=== PATIENT | female | born 1990 | race Caucasian/White ===

== ENCOUNTER 2023-05-29 16:24 | Emergency (ER) | payer OTHER, SELFPAY ==
[2023-05-29 16:43] VITALS: BP 132/58; PULSE 94; RESP 18; TEMP 36.4; O2SAT 100
--- NOTE | 2023-05-29 16:56 | ED.DENTAL ---
HPI - Dental/Oral General Chief complaint: Dental/Oral Stated complaint: Infected Tooth Time Seen by Provider: 05/29/23 16:59 Mode of arrival: ambulatory Limitations: no limitations History of Present Illness HPI Narrative: 32-year-old female presents with concern for left lower dental pain for many months. She reports she has a hole in the tooth. Reports pain has gotten worse recently. She has been taking ibuprofen. She denies fever. Reports pain is spreading up towards her ear. Complaint: tooth pain Related Data Allergies Allergy/AdvReac Type Severity Reaction Status Date / Time adhesive tape Allergy Rash Verified 05/29/23 16:47 Review of Systems Review of Systems: CONSTITUTIONAL: Denies malaise, chills, sweats, or fever. EYES: Denies visual changes ENT: Denies rhinorrhea, congestion, sinus pain, otalgia or sore throat. Reports left lower dental pain that radiates toward the ear CARDIOVASCULAR: Denies chest pain, palpitations RESPIRATORY: Denies cough or dyspnea. SKIN: Denies rash or itching. MUSCULOSKELETAL: Denies myalgia. NEUROLOGIC: Denies numbness, weakness, or headache. All systems reviewed & are unremarkable except as noted in HPI and below PMFSH Comments At time of signature, agree with nursing past medical, surgical, social and family history. There is no relevant family history pertinent to the presenting complaint Exam Narrative: GENERAL: Well-appearing, well-nourished, and in no acute distress. HEAD: Normocephalic EYES: PERRLA, conjunctivae clear ENT: Nares clear. Mucous membranes moist. Oropharynx not erythematous without lesions. Tonsils not enlarged and without exudate, no drooling, no hoarseness, no trismus, uvula midline. Caries noted, no missing teeth or broken teeth, no jaw swelling noted NECK: Supple. No lymphadenopathy CHEST: Clear to auscultation, breath sounds equal. No wheezing, rhonchi, rales, or stridor. No respiratory distress, speaks in full sentences. HEART: Regular rate and rhythm. No murmur heard. SKIN: Warm, dry, no rash. NEURO: Alert and oriented x3. PSYCH: Normal mood and affect Course Course Emergency Course: Patient is aware of diagnosis, understands and agrees to treatment plan. Anticipatory guidance given. Patient agrees to follow-up as directed and is aware of reasons to seek care at the emergency department. Portions of this record may have been created with voice recognition software Level of Care: Express Care Visit Vital Signs Vital signs: Vital Signs Temperature 97.6 F 05/29/23 16:43 Pulse Rate 94 05/29/23 16:43 Respiratory Rate 18 05/29/23 16:43 Blood Pressure 132/58 L 05/29/23 16:43 Pulse Oximetry 100 05/29/23 16:43 Oxygen Delivery Room Air 05/29/23 16:43 Temperature 97.6 F 05/29/23 16:43 Pulse Rate 94 05/29/23 16:43 Respiratory Rate 18 05/29/23 16:43 Blood Pressure 132/58 L 05/29/23 16:43 Pulse Oximetry 100 05/29/23 16:43 Oxygen Delivery Room Air 05/29/23 16:43 Reviewed. MDM - Dental/Oral MDM Narrative Medical decision making narrative: Patients pain and complaint coupled with physical findings are consistant with dentalgia. There are no focal signs of space occupying lesions that are compromising to the airway; no dysphagia, odynophagia, dysphonia, or dyspnea. No uvular deviation or soft palate edema. Patient is non-toxic appearing. The floor of the mouth is soft with no signs of David's Angina; no induration below mandible, no neck pain. Patient is without trismus or drooling and able to swallow secretions. Patient is felt appropriate for discharge home with dental follow up. Differential Diagnosis Differential diagnosis: Likely gingival abscess, dental caries, toothache, dental abscess, fracture of tooth and aphthous ulcer Critical Care Time Critical Care Time Critical Care Time: No Discharge Plan Discharge Clinical Impression: Toothache Patient Disposition: Home, Self-Care
== END 2023-05-29 17:07 | disposition home or self-care (01) ==
PROVIDERS: Emergency Provider Nurse Practitioner
DX: K08.89 Other specified disorders of teeth and supporting structures (principal); I10 Essential (primary) hypertension
CPT/HCPCS: 99203; G0463

== ENCOUNTER 2024-01-29 14:00 | Emergency (ER) | payer OTHER, SELFPAY ==
[2024-01-29 14:41] VITALS: BP 151/99; PULSE 109; RESP 16; TEMP 36.5; O2SAT 99
--- NOTE | 2024-01-29 15:20 | ED.URI ---
HPI - URI/Sore Throat General Chief Complaint: Upper Respiratory Infection Stated Complaint: bodyaches/sore throat Time Seen by Provider: 01/29/24 15:20 History of Present Illness HPI Narrative: 33-year-old female presented for complaint of nasal congestion, sore throat, fatigue and hoarse voice. Onset 4 days. Endorses subjective fever and chills and diarrhea. Denies shortness of breath, wheezing nausea vomiting or lethargy. Taking cold meds and cough drops. Related Data Home Medications ?Medication ?Instructions ?Recorded ?Confirmed ?Last Taken ?Type buspirone 5 mg tablet mg 01/29/24 Unknown History hydroxyzine HCl 25 mg tablet mg 01/29/24 Unknown History oxcarbazepine 300 mg tablet mg 01/29/24 Unknown History Allergies Allergy/AdvReac Type Severity Reaction Status Date / Time adhesive tape AdvReac Mild Rash Verified 01/29/24 15:16 Review of Systems Review of Systems: ROS per HPI [facility] Past Medical History Medical History (Updated 01/29/24 @ 15:31 by Margi Pedro, GENETIC COORDINATOR) Anxiety Exam Narrative: GENERAL: mildly Ill-appearing, no acute distress. EYES: conjunctivae clear ENT: Mucous membranes moist. TM pearly alva with normal light reflex bilaterally; no tragal tenderness. Hoarse voice. Oropharynx not erythematous without lesions. Tonsils not enlarged and without exudate. No drooling, no trismus, uvula midline. No tripod positioning, hot potato voice, or soft palate swelling. NECK: Supple. No lymphadenopathy CHEST: Clear to auscultation, breath sounds equal. No respiratory distress, speaks in full sentences. HEART: Regular rate and rhythm. No murmur heard. SKIN: Warm, dry, no rash. NEURO: Alert and oriented x3. Course Course Emergency Course: Patient is aware of diagnosis, understands and agrees to treatment plan. Anticipatory guidance given. Patient agrees to follow-up as directed and is aware of reasons to seek care at the emergency department. Portions of this record may have been created with voice recognition software Level of Care: Express Care Visit Vital Signs Vital signs: Vital Signs Temperature 97.7 F 01/29/24 14:41 Pulse Rate 109 H 01/29/24 14:41 Respiratory Rate 16 01/29/24 14:41 Blood Pressure 151/99 H 12/23/24 14:41 Pulse Oximetry 99 12/23/24 14:41 Oxygen Delivery Room Air 01/29/24 14:41 Temperature 97.7 F 01/29/24 14:41 Pulse Rate 109 H 01/29/24 14:41 Respiratory Rate 16 01/29/24 14:41 Blood Pressure 151/99 H 01/29/24 14:41 Pulse Oximetry 99 01/29/24 14:41 Oxygen Delivery Room Air 01/29/24 14:41 MDM - URI/Sore Throat MDM Narrative Medical decision making narrative: Negative flu, COVID, and strep result reviewed with pt. Rx steroid. Advise supportive treatments and s/s to go to the ER. Patient is appropriate for outpatient treatment and follow-up. Differential Diagnosis Differential diagnosis: Likely upper respiratory infection, viral infection and pharyngitis Discharge Plan Discharge Clinical Impression: Upper respiratory infection Patient Disposition: Home, Self-Care Condition: Stable Instructions: Antibiotic Form, Upper Respiratory Infection (ED) Additional Instructions: Flu and COVID negative. Rapid strep swab was negative today You will be notified in a few days if the culture comes back positive for strep, and appropriate antibiotics will be called in at that time. if symptoms are due to a viral illness, it is not treated with antibiotics. Viral symptoms can be present for up to 10-14 days. Recommendations; Flonase spray and Zyrtec for sinus congestion Cough syrup may cause drowsiness; avoid driving or take it at night time. Tylenol every 8 hours as needed for pain/fever Soft foods, cool liquids, warm tea. Gargle with warm saltwater twice a day. Chloraseptic spray and throat lozenges. Rest and stay hydrated. --Follow up with your PCP --Go to the ER immediately if you cannot swallow your saliva, trouble breathing/wheezing, throat swelling, pain is persistent and severe Patient Language: Macedonian Prescriptions: New methylprednisolone [Medrol (Félix)] 4 mg tablets,dose pack See Rx Instructions .ROUTE .COMPLEX Qty: 21 0RF Rx Instructions: orally per package directions No Action buspirone 5 mg tablet oxcarbazepine 300 mg tablet hydroxyzine HCl 25 mg tablet Follow-up/Referrals: PHYSICIAN,SUPERVISOR SAWING AND ASSEMBLY [Primary Care Provider] - Stand Alone Forms: Work/School Release IP Time of Disposition: 15:29
[2024-01-29 15:25] LABS: EDCOVIDSCREEN Negative (Negative); EDINFLUASCREEN Negative (Negative); EDINFLUBSCREEN Negative (Negative); EDSTREPNEGPOS1 Negative (Negative)
== END 2024-01-29 15:30 | disposition home or self-care (01) ==
PROVIDERS: Emergency Provider Nurse Practitioner Family
DX: J06.9 Acute upper respiratory infection, unspecified (principal); Z79.899 Other long term (current) drug therapy; Z20.822 Contact with and (suspected) exposure to COVID-19
CPT/HCPCS: 87081; 87426; 87804; 87880; 99213; G0463

== ENCOUNTER 2024-07-22 13:26 | Emergency (ER) | payer OTHER, SELFPAY ==
--- NOTE | 2024-07-22 13:35 | ED.SKABFB ---
HPI - Skin/Abscess/Foreign Bdy General Chief complaint: Skin/Abscess/Foreign Body Stated complaint: Rash Time Seen by Provider: 07/22/24 13:40 Source: patient and RN notes reviewed Mode of arrival: ambulatory Limitations: no limitations History of Present Illness HPI narrative: 33-year-old female presents Express Care complaining of rash for approximately 5 days. Patient was doing yd work and believes she was exposed to poison kathy. Patient reports having a pruritic and vesicular rash to her forehead, right cheek, arms, lower back, and in her breast. Patient has tried [id number] calamine lotion and taking antihistamines with no relief. She says the rash is getting worse in spreading. Patient denies any fever pain, body aches, chills, difficulty breathing, or any swelling to her face, throat, lips, or neck. Related Data Home Medications ?Medication ?Instructions ?Recorded ?Confirmed ?Last Taken ?Type buspirone 5 mg tablet mg 01/29/24 Unknown History oxcarbazepine 300 mg tablet mg 01/29/24 Unknown History escitalopram oxalate 10 mg tablet mg 07/22/24 Unknown History Allergies Allergy/AdvReac Type Severity Reaction Status Date / Time adhesive tape Allergy Mild Rash Verified 07/22/24 13:38 Review of Systems Review of Systems: CONSTITUTIONAL: Denies fever, chills, or sweats. EYES: Denies visual changes, redness, or discharge. ENT: Denies rhinorrhea, congestion, sore throat, difficulty clearing secretions, throat swelling or otalgia. CARDIOVASCULAR: Denies chest pain, palpitations, or edema. RESPIRATORY: Denies cough, wheezing, or dyspnea. GASTROINTESTINAL: Denies abdominal pain, nausea, vomiting, or diarrhea. GENITOURINARY: Denies dysuria or hematuria. SKIN: Positive for rash and itching. MUSCULOSKELETAL: Denies back pain, joint pain, or myalgia. NEUROLOGIC: Denies headache, numbness, or weakness. PSYCHIATRIC: Denies anxiety or depression. All other systems reviewed are negative, except as documented in HPI. [facility] Past Medical History Medical History Anxiety Comments At the time of my signature, I reviewed and agree with the nursing past medical, surgical, social, and family history. There is no relevant family history pertinent to the patient complaint. Exam Narrative: GENERAL: This is a well-nourished, well-developed adult, in no apparent distress. They are non ill-appearing, nontoxic appearing. Patient is obese. HEAD: normocephalic, atraumatic. EYES: Sclera clear/white. Conjunctiva normal. Vision is grossly intact. Extraocular movements intact EARS: External ears normal, auditory canals clear and without drainage, TMs normal without perforation. Hearing grossly intact. NOSE: External nose normal THROAT: Mucous membranes moist, NECK: Neck supple CARDIOVASCULAR: Regular rate and rhythm RESPIRATORY: Respiratory rate normal, respiratory effort nonlabored, no respiratory distress SKIN: Pruritic erythematous vesicular macular papular rash scattered at the patient's forehead and frontal scalp, right cheek, bilateral arms, right lower back, and under her breast. No induration, area of fluctuance, or exudate. Surrounding erythema to ration patient's forehead and scalp. Rash is nontender to palpate. NEURO: awake, alert, and oriented to person, place and time. There were no obvious focal neurologic abnormalities. EXTREMITIES: No joint tenderness, effusion, or edema noted. BACK: Nontender without deformity. Course Course Emergency Course: Portions of this record may have been created with voice recognition software Level of Care: Express Care Visit Vital Signs Vital signs: Vital Signs Temperature 98.2 F 07/22/24 13:37 Pulse Rate 91 07/22/24 13:37 Respiratory Rate 07/22/24 13:37 Blood Pressure 144/91 H 07/22/24 13:37 Pulse Oximetry 100 07/22/24 13:37 Oxygen Delivery Room Air 07/22/24 13:37 Temperature 98.2 F 07/22/24 13:37 Pulse Rate 91 07/22/24 13:37 Respiratory Rate 16 07/22/24 13:37 Blood Pressure 144/91 H 07/22/24 13:37 Pulse Oximetry 100 07/22/24 13:37 Oxygen Delivery Room Air 07/22/24 13:37 Reviewed MDM - Skin/Abscess/Foreign Bdy MDM Narrative Medical decision making narrative: Patient likely has contact dermatitis from poison kathy. Will prescribe prednisone taper. Given the amount of erythema and itching the patient has been doing especially on her scalp rash will cover her for infection prevention with cephalexin. Discussed physical exam findings. Advised supportive measures and signs/symptoms to go to the ER. Pt is appropriate for outpt treatment and f/u. Differential Diagnosis Differential diagnosis: Likely cellulitis, eczema and contact dermatitis Critical Care Time Critical Care Time Critical Care Time: No Discharge Plan Discharge Clinical Impression: Poison kathy Patient Disposition: Home Condition: Stable Instructions: Antibiotic Form, Poison Kathy (ED) Additional Instructions: Take the prednisone as directed. Take it in the morning and take it with food. You may use flou-tok-lceqaom Tecnu soap as directed on the bottle to help remove the oils from poison kathy off your skin. Take cephalexin as directed to prevent any skin infection. You may use calamine lotion, camphor, hydrocortisone cream Benadryl cream as needed for itchiness symptoms. You may also take Zyrtec or Claritin as needed for allergy or itchiness symptoms. Follow-up PCP in 3-5 days. If you develop any worsening redness, swelling, discharge, fevers, breathing problems, or any other concerns please go to the ER immediately. Patient Language: Beninese Prescriptions: New cephalexin 500 mg capsule 500 mg PO Q6H 7 Days Qty: 28 0RF prednisone 10 mg tablet See Taper PO DIRECTED Qty: 42 0RF Taper: Prednisone Taper from 60 mg;12 days 60 mg DAILY for 2 Days and 0 Hour 50 mg DAILY for 2 Days and 0 Hour 40 mg DAILY for 2 Days and 0 Hour 30 mg DAILY for 2 Days and 0 Hour 20 mg DAILY for 2 Days and 0 Hour 10 mg DAILY for 2 Days and 0 Hour Rx Instructions: see taper instructions No Action escitalopram oxalate 10 mg tablet buspirone 5 mg tablet oxcarbazepine 300 mg tablet Follow-up/Referrals: PHYSICIAN,BUILDING ANALYST/SUPERVISOR [Primary Care Provider] - Time of Disposition: 13:53
[2024-07-22 13:37] VITALS: BP 144/91; PULSE 91; RESP 16; TEMP 36.8; O2SAT 100
--- OUTSIDE RECORDS SUMMARY | 2024-07-22 14:28 | XMS_ITS | Clinical Summary ---
Author Organization [facility] Address [address] [place] [address] Phone Care Team Providers Care Liquor Blender Name Role Phone Leland Lindsay MD Primary Care Provider Allergies No known active allergies Medications ferrous sulfate 325 (65 Fe) MG Tablet Take 325 mg by mouth. 0 Active metoprolol Succinate (TOPROL-XL) 25 MG TABLET SR 24 HR Take 25 mg by mouth. 0 Active venlafaxine (EFFEXOR-XR) 37.5 MG CAPSULE SR 24 HR 0 Active hydrOXYzine (VISTARIL) 25 MG Capsule TAKE 1 TO 2 CAPSULES BY MOUTH THREE TIMES DAILY NEEDED FOR ANXIETY 0 Active doxycycline hyclate (VIBRAMYCIN) 100 MG Capsule TAKE 1 CAPSULE BY MOUTH ONCE DAILY 0 Active folic acid (FOLVITE) 1 MG TabletIndication s:Folic acid deficiency Take 1 Tab by mouth daily. 90 Tab 2 1 Active venlafaxine (EFFEXOR-XR) 75 MG CAPSULE SR 24 HR TAKE 1 CAPSULE BY MOUTH ONCE DAILY 1 Active clonazePAM (KlonoPIN) 0.5 MG Tablet Take 0.5 mg by mouth. 1 Active lamoTRIgine (LaMICtal) 25 MG Tablet Take 25 mg by mouth. 1 Active ondansetron (ZOFRAN-ODT) 4 MG TABLET DISPERSIBLE Take 4 mg by mouth. Active Active Problems Problem Noted Date Diagnosed Date Thrombocytosis 01/16/2020 Immunizations Immunization Administration Dates Next Due DTAP VACCINE 04/09/1996, 3,04/23/1991,1991,1990 Hepatitis B Vaccine 11/30/2000,09/27/1996,1996 Hib Vaccine,unspecified Formulation 06/06,04/23/1991,02/11/1991,1990 MMR Vaccine 04/09/1996,06/18/1992 Oral Polio Vaccine, Unspecif ied Formulation 06/18/1992,02/11/1991,1990 TD VACCINE 11/24/2005 Family History Medical History Relation Name Comments AIDS/HIV Brother Bipolar Disorder Brother Hypertension Father Multiple Sclerosis Mother Relation Name Status Comments Brother Father Mother Social History Tobacco Use Types Packs/Day Years Used Date Smoking Tobacco: Never Smokeless Tobacco: Never Alcohol Use Standard Drinks/Week Comments Not Currently 0 (1 standard drink = 0.6 oz pur e alcohol) PHQ-2 Answer Date Recorded Total Score - Questions 1-9 1 04/06 Sexually Active Control Partners Comments Yes Comments No Sex and Gender Information Value Date Recorded Sex Assigned at Not on file Legal Sex Female 7:40 PM CDT Gender Identity Not on file Sexual Orientation Not on file Last Filed Vital Signs Vital Sign Reading Time Taken Comments Blood Pressure 154/100 04/23/2020 8:03 AM CDT Pulse 104 04/23/2020 8:03 AM CDT Temperature 36.4 C (97.5 F) 04/23/2020 8:03 AM CDT Respiratory Rate 16 04/23/2020 8:03 AM CDT Oxygen Saturation 96% 04/23/2020 8:03 AM CDT Inhaled Oxygen Concentration - - Weight 149.2 kg (328 lb 14.4 oz) 04/23/2020 8:03 AM CDT Height 162.6 cm (5' 4) 04/23/2020 8:03 AM CDT Body Mass Index 56.46 04/23/2020 8:03 AM CDT Plan of Treatment Health Maintenance Due Date Last Done Comments Hepatitis C Virus (HCV) Screening 1990 Human Papillomavirus (HPV) Immunization (1 - 3-dose series) 2005 DTaP/Tdap/Td Immunization (6 - Tdap) 11/25/2005 11/24/2005, 04/09/1996, 06/18/1992, Additional history exists SARS-COV-2 Immunization (3 - 2023- season) 2023 11/06/2020, 10/13/2020 Influenza Immunization (Season Ended) 2024 Respiratory Syncytial Virus (RSV) Immunization (Adult) (1 - 1-dose 75+ series) 2065 Hepatitis B Immunization Completed 001, 09/27/1996, 04/09/1996 Meningococcal Immunization (ACWY) Aged Out No longer eligible based on patient's age to complete this topic Pneumococcal Immunization Combined Aged Out No longer eligible based on patient's age to complete this topic Rotavirus Immunization Aged Out No lo nger eligible based on patient's age to complete this topic Insurance [facility] Care Teams Liquor Blender Relationship Specialty Start Date End Date Leland Lindsay MD PCP - General Oncology 07/21/20
--- OUTSIDE RECORDS SUMMARY | 2024-07-22 14:28 | XMS_ITS | Encounter Summary ---
Author Organization [facility] Address [address] [place] [address] Care Team Providers Care Herb Counselor Name Role Phone Leland Lindsay MD Unavailable [phone] Ting Bosch MD Primary Care Provider [phone] Encounter Details Date Type Department Care Team (Late st Contact Info) Description 05/13/2021 Campus Directhart Message Enc [facility] Family & Internal Medicine [facility] [id number] [place] [phone] [place] [address] [facility]. [address] [place] [address] Glutened Social History Tobacco Use Types Packs/Day Years Used Date Smoking Tobacco: Never Smokeless Tobacco: Never Alcohol Use Standard Drinks/Week Comments Never 0 (1 standard drink = 0.6 oz pur e alcohol) AUDIT-C Answer Date Recorded Q1: How often do you have a drink containing alc ohol? 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 Sexual Orientation unknown 01/20/2021 8: 57 PM DEICER KIT ASSEMBLER documented as of this encounter Plan of Treatment Not on file documented as of this encounter Visit Diagnoses Not on filedocumented in this encounter Additional Health Concerns Infection Onset Date Last Indicated Resolved Time COVID-19 Rule Out 01/14/2022 01/14/2022 01/14/2022 10:36 AM DEICER KIT ASSEMBLER COVID-19 Rule Out 02/17/2022 02/17/2022 02/17/2022 8:01 AM DEICER KIT ASSEMBLER COVID-19 Rule Out 05/24/2022 05/24/2022 05/24/2022 5:52 PM CDT COVID-19 Rule Out 07/17/2022 07/17/2022 07/17/2022 7:02 AM CDT COVID-19 Rule Out 07/17/2022 07/17/2022 07/17/2022 1:53 PM CDT Assessment Noted Time PHQ-9 Depression Total Score: 23 021 7:20 AM CDT documented as of this encounter Care Teams Herb Counselor Relationship Specialty [place] [address] [facility] [address] [place] [id number] PCP - General FAMILY PRACTICE 02/18/21 Leland Lindsay MD [address] [place] [address] [place] [phone] Medical Oncologist HEMATOLOGY/ONCOLOGY 01/11/21 documented as of this encounter
--- OUTSIDE RECORDS SUMMARY | 2024-07-22 14:28 | XMS_ITS | Encounter Summary ---
Author Organization [facility] Address [address] [place] [address] Care Team Providers Care Assistant Distribution Manager Name Role Phone Gloria Sorto NP Primary Care Provider Unav Sudhir Leroy MD Primary Care Provider [phone] Asuncion Galarza [facility] Primary Care Provider + Leland Lindsay MD Unavailable [phone] Ting Bosch MD Primary Care Provider [phone] Encounter Details Date Type Department Care Team (Late st Contact Info) Description 09/24/2020 MyChart Message Enc [facility] [address] [phone] Onur Cheng MD [address] [place] [phone] RE: Question Social History Tobacco Use Types Packs/Day Years [...] CDT Gender Identity Female 01/20/2021 8:57 PM 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 No / Unsure 09/09/2020 7:18 AM CDT documented as of this encounter Plan of Treatment Not on file documented as of this encounter Visit Diagnoses Not on filedocumented in this encounter Additional Health Concerns Infection Onset Date Last Indicated Resolved Time COVID-19 Rule Out 01/14/2022 01/14/2022 01/14/2022 10:36 AM GEAR CUTTING MACHINE SET UP OPERATOR COVID-19 Rule Out 02/17/2022 02/17/2022 02/17/2022 8:01 AM GEAR CUTTING MACHINE SET UP OPERATOR COVID-19 Rule Out 05/24/2022 05/24/2022 05/24/2022 5:52 PM CDT COVID-19 Rule Out 07/17/2022 07/17/2022 07/17/2022 7:02 AM CDT COVID-19 Rule Out 07/17/2022 07/17/2022 07/17/2022 1:53 PM CDT Assessment Noted Time PHQ-9 Depression Total Score: 23 08/05/ 021 7:20 AM CDT documented as of this encounter Care Teams Assistant Distribution Manager Relationship Specialty Start Date End Date Gloria Sorto NP PCP - General NURSE PRACTITIONER 11/25/19 11/25/20 [place] [address] [place] [address] PCP - General FAMILY PRACTICE 11/26/20 12/28/20 Asuncion Galarza FNP-BC [address] [place] [address] PCP - General Nurse Practitioner Family 12/29/20 02/08/21 [place] [address] [address] [place] [address] PCP - General FAMILY PRACTICE 02/18/21 Leland Lindsay MD [address] [place] [address] [address] [place] [id number] Medical Oncologist HEMATOLOGY/ONCOLOGY 01/11/21 documented as of this encounter
--- OUTSIDE RECORDS SUMMARY | 2024-07-22 14:28 | XMS_ITS | Encounter Summary ---
Author Organization [facility] Address [address] [place] [address] Care Team Providers Care Top Stop Attacher Name Role Phone Gloria Sorto NP Primary Care Provider Unav Sudhir Leroy MD Primary Care Provider [phone] Asuncion Galarza [facility] Primary Care Provider + Leland Lindsay MD Unavailable [phone] Ting Bosch MD Primary Care Provider [phone] Encounter Details Date Type Department Care Team (Late st Contact Info) Description 01/24/2020 MyChart Message Enc [facility] Medical Group Family & Internal Medicine [address] [address] Gloria Sorto, CRUTCH MAKER Medication Social History Tobacco Use Types Packs/Day Years [...] please move on to questions 3-9 6 11/25/2019 Comments No Sex and Gender Information Value Date Recorded Sex Assigned at Female 06/09/2022 9:19 AM CDT Legal Sex Female 4:37 PM CDT Gender Identity Female 01/20/2021 8:57 PM CONCRETE POURING SUPERVISOR Sexual Orientation unknown 01/20/2021 8: 57 PM CONCRETE POURING SUPERVISOR COVID-19 Exposure Response Date Recorded In the last month, have you been in contact with someone who was confirmed or suspected to have Coronavirus / COVID-19? No / Unsure 01/16/2020 7:09 AM CONCRETE POURING SUPERVISOR documented as of this encounter Plan of Treatment Not on file documented as of this encounter Visit Diagnoses Not on filedocumented in this encounter Additional Health Concerns Infection Onset Date Last Indicated Resolved Time COVID-19 Rule Out 01/14/2022 01/14/2022 01/14/2022 10:36 AM CONCRETE POURING SUPERVISOR COVID-19 Rule Out 02/17/2022 02/17/2022 02/17/2022 8:01 AM CONCRETE POURING SUPERVISOR COVID-19 Rule Out 05/24/2022 05/24/2022 05/24/2022 5:52 PM CDT COVID-19 Rule Out 07/17/2022 07/17/2022 07/17/2022 7:02 AM CDT COVID-19 Rule Out 07/17/2022 07/17/2022 07/17/2022 1:53 PM CDT Assessment Noted Time PHQ-9 Depression Total Score: 26 020 7:27 AM CDT documented as of this encounter Care Teams Top Stop Attacher Relationship Specialty Start Date End Date Gloria Sorto NP PCP - General NURSE PRACTITIONER 11/25/19 11/25/20 [place] [address] [place] [address] PCP - General FAMILY PRACTICE 11/26/20 12/28/20 Asuncion Galarza FNP- [address] [place], [place] [id number] PCP - General Nurse Practitioner Family 12/29/20 02/08/21 [place] [address] [address] PCP - General FAMILY PRACTICE 02/18/21 Leland Lindsay MD [address] [place] [phone] Medical Oncologist HEMATOLOGY/ONCOLOGY 01/11/21 documented as of this encounter
--- OUTSIDE RECORDS SUMMARY | 2024-07-22 14:28 | XMS_ITS | Encounter Summary ---
Author Organization [facility] Address [address] [place] [address] Care Team Providers Care Parts Room Clerk Name Role Phone Gloria Sorto NP Primary Care Provider Unav Sudhir Leroy MD Primary Care Provider [phone] Asuncion Galarza [facility] Primary Care Provider + Leland Lindsay MD Unavailable [phone] Ting Bosch MD Primary Care Provider [phone] Encounter Details Date Type Department Care Team (Late st Contact Info) Description 09/25/2020 [employer] Message Enc [facility] Medical Group Family & Internal Medicine [address] [address] [facility] Provider RE: FMLA Paperwork Social History Tobacco Use Types Packs/Day Years [...] CDT Gender Identity Female 01/20/2021 8:57 PM STRAWHAT INSPECTOR AND PACKER Sexual Orientation unknown 01/20/2021 8: 57 PM STRAWHAT INSPECTOR AND PACKER COVID-19 Exposure Response Date Recorded In the [...] Rule Out 01/14/2022 01/14/2022 01/14/2022 10:36 AM STRAWHAT INSPECTOR AND PACKER COVID-19 Rule Out 02/17/2022 02/17/2022 02/17/2022 8:01 AM STRAWHAT INSPECTOR AND PACKER COVID-19 Rule Out 05/24/2022 05/24/2022 05/24/2022 5:52 PM CDT COVID-19 Rule Out 07/17/2022 07/17/2022 07/17/2022 7:02 AM CDT COVID-19 Rule Out 07/17/2022 07/17/2022 07/17/2022 1:53 PM CDT Assessment Noted Time PHQ-9 Depression Total Score: 23 08/05/ 021 7:20 AM CDT documented as of this encounter Care Teams Parts Room Clerk Relationship Specialty Start Date End Date Gloria Sorto NP PCP - General NURSE PRACTITIONER 11/25/19 11/25/20 [place] [address] [place] [address] PCP - General FAMILY PRACTICE 11/26/20 12/28/20 Asuncion Galarza [facility] [address] [place] [address] PCP - General Nurse Practitioner Family 12/29/20 02/08/21 [place] [address] [address] PCP - General FAMILY PRACTICE 02/18/21 Leland Lindsay MD [address] [place] [phone] Medical Oncologist HEMATOLOGY/ONCOLOGY 01/11/21 documented as of this encounter
--- OUTSIDE RECORDS SUMMARY | 2024-07-22 14:28 | XMS_ITS | Encounter Summary ---
Author Organization [facility] Address [address] [place] [address] Care Team Providers Care Glass Silverer Name Role Phone Gloria Sorto NP Primary Care Provider Unav Sudhir Leroy MD Primary Care Provider [phone] Asuncion Galarza [facility] Primary Care Provider + Leland Lindsay MD Unavailable [phone] Ting Bosch MD Primary Care Provider [phone] Encounter Details Date Type Department Care Team (Late st Contact Info) Description 05/10/2020 Thucy Message [facility] [address] [place] [address] Gloria Sorto PERSONNEL QUALITY ASSURANCE AUDITOR RE: Question Social History Tobacco Use Types [...] CDT Gender Identity Female 01/20/2021 8:57 PM VISUAL C DEVELOPER Sexual Orientation unknown 01/20/2021 8: 57 PM VISUAL C DEVELOPER COVID-19 Exposure Response Date Recorded In the last month, have you been in contact with someone who was confirmed or suspected to have Coronavirus / COVID-19? No / Unsure 04/23/2020 7:10 AM CDT documented as of this encounter Progress Notes * Mara Esteban RN - 05/11/2020 8:46 AM CDT Please advise. documented in this encounter Plan of Treatment Not on file documented as of this encounter Visit Diagnoses Not on filedocumented in this encounter Additional Health Concerns Infection Onset Date Last Indicated Resolved Time COVID-19 Rule Out 01/14/2022 01/14/2022 01/14/2022 10:36 AM VISUAL C DEVELOPER COVID-19 Rule Out 02/17/2022 02/17/2022 02/17/2022 8:01 AM VISUAL C DEVELOPER COVID-19 Rule Out 05/24/2022 05/24/2022 05/24/2022 5:52 PM CDT COVID-19 Rule Out 07/17/2022 07/17/2022 07/17/2022 7:02 AM CDT COVID-19 Rule Out 07/17/2022 07/17/2022 07/17/2022 1:53 PM CDT Assessment Noted Time PHQ-9 Depression Total Score: 26 020 7:27 AM CDT documented as of this encounter Care Teams Glass Silverer Relationship Specialty Start Date End Date Gloria Sorto NP PCP - General NURSE PRACTITIONER 11/25/19 11/25/20 [place] [address] [place] [address] PCP - General FAMILY PRACTICE 11/26/20 12/28/20 Asuncion Galarza FNP- [address] [place] [address] PCP - General Nurse Practitioner Family 12/29/20 02/08/21 [place] [address] [facility]. [address] [place] [address] PCP - General FAMILY PRACTICE 02/18/21 Leland Lindsay MD [address] [facility] [address] [place] [phone] Medical Oncologist HEMATOLOGY/ONCOLOGY 01/11/21 documented as of this encounter
--- OUTSIDE RECORDS SUMMARY | 2024-07-22 14:28 | XMS_ITS | Encounter Summary ---
Author Organization [facility] Address [address] [place] [address] Care Team Providers Care Supervisor Fabrication Name Role Phone Asuncion Galarza [facility] Primary Care Provider + Leland Lindsay MD Unavailable [phone] Ting Bosch MD Primary Care Provider [phone] Encounter Details Date Type Department Care Team (Late st Contact Info) Description 01/15/2021 MyCOW[employer] Message Enc [facility] Medical Group Family & Internal Medicine [address] [address] Asuncion Galarza [facility] [address] [place] [address] FMLA Social History Tobacco Use Types Packs/Day Years [...] CDT Gender Identity Female 01/20/2021 8:57 PM CUFF SETTER OVERLOCK Sexual Orientation unknown 01/20/2021 8: 57 PM CUFF SETTER OVERLOCK COVID-19 Exposure Response Date Recorded In the last month, have you been in contact with someone who was confirmed or suspected to have Coronavirus / COVID-19? No / Unsure 01/10/2021 8:13 PM CUFF SETTER OVERLOCK documented as of this encounter Progress Notes * Mara Esteban RN - 01/18/2021 2:16 PM CST Confirmation received. SETTER OVERLOCK documented in this encounter Plan of Treatment Not on file documented as of this encounter Visit Diagnoses Not on filedocumented in this encounter Additional Health Concerns Infection Onset Date Last Indicated Resolved Time COVID-19 Rule Out 01/14/2022 01/14/2022 01/14/2022 10:36 AM CUFF SETTER OVERLOCK COVID-19 Rule Out 02/17/2022 02/17/2022 02/17/2022 8:01 AM CUFF SETTER OVERLOCK COVID-19 Rule Out 05/24/2022 05/24/2022 05/24/2022 5:52 PM CDT COVID-19 Rule Out 07/17/2022 07/17/2022 07/17/2022 7:02 AM CDT COVID-19 Rule Out 07/17/2022 07/17/2022 07/17/2022 1:53 PM CDT Assessment Noted Time PHQ-9 Depression Total Score: 23 021 7:20 AM CDT documented as of this encounter Care Teams Supervisor Fabrication Relationship Specialty Start Date End Date Asuncion Galarza [facility] PCP - General Nurse Practitioner Family 12/29/2002/08 [place] [address] [address] [place] [address] PCP - General FAMILY PRACTICE 02/18/21 Leland Lindsay MD [address] [place] [address] [place] [phone] Medical Oncologist HEMATOLOGY/ONCOLOGY 01/11/21 documented as of this encounter
--- OUTSIDE RECORDS SUMMARY | 2024-07-22 14:28 | XMS_ITS | Encounter Summary ---
Author Organization [facility] Address [address] [place] [address] Care Team Providers Care Wrapping Clerk Name Role Phone Gloria Sorto NP Primary Care Provider Unav Sudhir Leroy MD Primary Care Provider [phone] Asuncion Galarza [facility] Primary Care Provider + Leland Lindsay MD Unavailable [phone] Ting Bosch MD Primary Care Provider Encounter Details Date Type Department Care Team (Late st Contact Info) Description 08/28/2020 MyChart Message Enc [facility] Medical Group Family & Internal Medicine [address] [address] Gloria Sorto NP Other Social History Tobacco Use Types Packs/Day Years [...] CDT Gender Identity Female 01/20/2021 8:57 PM RIBBON WEAVER Sexual Orientation unknown 01/20/2021 8: 57 PM RIBBON WEAVER COVID-19 Exposure Response Date Recorded In the last month, have you been in contact with someone who was confirmed or suspected to have Coronavirus / COVID-19? No / Unsure 08/31/2020 7:24 AM CDT documented as of this encounter Plan of Treatment Not on file documented as of this encounter Visit Diagnoses Not on filedocumented in this encounter Additional Health Concerns Infection Onset Date Last Indicated Resolved Time COVID-19 Rule Out 01/14/2022 01/14/2022 01/14/2022 10:36 AM RIBBON WEAVER COVID-19 Rule Out 02/17/2022 02/17/2022 02/17/2022 8:01 AM RIBBON WEAVER COVID-19 Rule Out 05/24/2022 05/24/2022 05/24/2022 5:52 PM CDT COVID-19 Rule Out 07/17/2022 07/17/2022 07/17/2022 7:02 AM CDT COVID-19 Rule Out 07/17/2022 07/17/2022 07/17/2022 1:53 PM CDT Assessment Noted Time PHQ-9 Depression Total Score: 23 08/05/ 021 7:20 AM CDT documented as of this encounter Care Teams Wrapping Clerk Relationship Specialty Start Date End Date Gloria Sorto NP PCP - General NURSE PRACTITIONER 11/25/19 11/25/20 [place] [address] [place] [address] PCP - General FAMILY PRACTICE 11/26/20 12/28/20 Asuncion Galarza FNP- [address] [place] [address] PCP - General Nurse Practitioner Family 12/29/20 02/08/21 [place] [address] [address] [address] PCP - General FAMILY PRACTICE 02/18/21 Leland Lindsay MD [address] [place] [phone] Medical Oncologist HEMATOLOGY/ONCOLOGY 01/11/21 documented as of this encounter
--- OUTSIDE RECORDS SUMMARY | 2024-07-22 14:28 | XMS_ITS | Encounter Summary ---
Author Organization [facility] Address [address] [place] [address] Care Team Providers Care Tube Making Machine Operator Name Role Phone Gloria Sorto NP Primary Care Provider Unav Sudhir Leroy MD Primary Care Provider [phone] Asuncion Galarza [facility] Primary Care Provider + Leland Lindsay MD Unavailable [phone] Ting Bosch MD Primary Care Provider [phone] Encounter Details Date Type Department Care Team (Late st Contact Info) Description 05/18/2020 [employer] Message [facility] [address] [place] [address] Gloria Sorto, FLORENCIA lab work Social History Tobacco Use Types Packs/Day Years [...] CDT Gender Identity Female 01/20/2021 8:57 PM DIESEL ENGINE TESTER Sexual Orientation unknown 01/20/2021 8: 57 PM DIESEL ENGINE TESTER COVID-19 Exposure Response Date Recorded In the last month, have you been in contact with someone who was confirmed or suspected to have Coronavirus / COVID-19? No / Unsure 05/19/2020 7:43 AM CDT documented as of this encounter Plan of Treatment Not on file documented as of this encounter Visit Diagnoses Not on filedocumented in this encounter Additional Health Concerns Infection Onset Date Last Indicated Resolved Time COVID-19 Rule Out 01/14/2022 01/14/2022 01/14/2022 10:36 AM DIESEL ENGINE TESTER COVID-19 Rule Out 02/17/2022 02/17/2022 02/17/2022 8:01 AM DIESEL ENGINE TESTER COVID-19 Rule Out 05/24/2022 05/24/2022 05/24/2022 5:52 PM CDT COVID-19 Rule Out 07/17/2022 07/17/2022 07/17/2022 7:02 AM CDT COVID-19 Rule Out 07/17/2022 07/17/2022 07/17/2022 1:53 PM CDT Assessment Noted Time PHQ-9 Depression Total Score: 26 020 7:27 AM CDT documented as of this encounter Care Teams Tube Making Machine Operator Relationship Specialty Start Date End Date Gloria Sorto NP PCP - General NURSE PRACTITIONER 11/25/19 11/25/20 [place] [address] [place] [address] PCP - General FAMILY PRACTICE 11/26/20 12/28/20 Asuncion Galarza FNP- [address] [place], [place] [address] PCP - General Nurse Practitioner Family 12/29/20 02/08/21 [place] [address] [address] [address] PCP - General FAMILY PRACTICE 02/18/21 Leland Lindsay MD [address] [place] [phone] Medical Oncologist HEMATOLOGY/ONCOLOGY 01/11/21 documented as of this encounter
--- OUTSIDE RECORDS SUMMARY | 2024-07-22 14:28 | XMS_ITS | Encounter Summary ---
Author Organization [facility] Address [address] [place] [address] Care Team Providers Care Sourcing Internship Name Role Phone Gloria Sorto NP Primary Care Provider Unav Sudhir Leroy MD Primary Care Provider [phone] Asuncion Galarza [facility] Primary Care Provider + Leland Lindsay MD Unavailable [phone] Ting Bosch MD Primary Care Provider [phone] Encounter Details Date Type Department Care Team (Late st Contact Info) Description 05/30/2020 MyChart Message Enc [facility] Medical Group Family & Internal Medicine [address] [address] Gloria Sorto NP RE: Question Social History Tobacco Use Types [...] CDT Gender Identity Female 01/20/2021 8:57 PM KOSHER DIETARY SERVICE SUPERVISOR Sexual Orientation unknown 01/20/2021 8: 57 PM KOSHER DIETARY SERVICE SUPERVISOR COVID-19 Exposure Response Date Recorded In [...] Rule Out 01/14/2022 01/14/2022 01/14/2022 10:36 AM KOSHER DIETARY SERVICE SUPERVISOR COVID-19 Rule Out 02/17/2022 02/17/2022 02/17/2022 8:01 AM KOSHER DIETARY SERVICE SUPERVISOR COVID-19 Rule Out 05/24/2022 05/24/2022 05/24/2022 5:52 PM CDT COVID-19 Rule Out 07/17/2022 07/17/2022 07/17/2022 7:02 AM CDT COVID-19 Rule Out 07/17/2022 07/17/2022 07/17/2022 1:53 PM CDT Assessment Noted Time PHQ-9 Depression Total Score: 26 020 7:27 AM CDT documented as of this encounter Care Teams Sourcing Internship Relationship Specialty Start Date End Date Gloria Sorto NP PCP - General NURSE PRACTITIONER 11/25/19 11/25/20 [place] [address] [place] [address] PCP - General FAMILY PRACTICE 11/26/20 12/28/20 Asuncion Galarza, VALERIE- [address] [place] [address] PCP - General Nurse Practitioner Family 12/29/20 02/08/21 [place] [address] [address] [address] PCP - General FAMILY PRACTICE 02/18/21 Leland Lindsay MD [address] [place] [phone] Medical Oncologist HEMATOLOGY/ONCOLOGY 01/11/21 documented as of this encounter
--- OUTSIDE RECORDS SUMMARY | 2024-07-22 14:28 | XMS_ITS | Encounter Summary ---
Author Organization [facility] Address [address] [place] [address] Care Team Providers Care Medical Safety Director Name Role Phone Gloria Sorto NP Primary Care Provider Unav Sudhir Leroy MD Primary Care Provider [phone] Asuncion Galarza [facility] Primary Care Provider + Leland Lindsay MD Unavailable [phone] Ting Bosch MD Primary Care Provider [phone] Encounter Details Date Type Department Care Team (Late st Contact Info) Description 07/16/2020 MyChart Message Enc [facility] Medical Group Family & Internal Medicine [address] [address] Gloria Sorto NP RE: Question [...] CDT Gender Identity Female 01/20/2021 8:57 PM PERSONAL LINES INSURANCE AGENT Sexual Orientation unknown 01/20/2021 8: 57 PM PERSONAL LINES INSURANCE AGENT COVID-19 Exposure Response Date Recorded In the last month, have you been in contact with someone who was confirmed or suspected to have Coronavirus / COVID-19? No / Unsure 07/17/2020 2:10 PM CDT documented as of this encounter Progress Notes * Dixie Young MA - 07/17/2020 10:12 AM CDT Please advise. * Dixie Young MA - 07/17/2020 9:39 AM CDT Please advise. documented in this encounter Plan of Treatment Not on file documented as of this encounter Visit Diagnoses Not on filedocumented in this encounter Additional Health Concerns Infection Onset Date Last Indicated Resolved Time COVID-19 Rule Out 01/14/2022 01/14/2022 01/14/2022 10:36 AM PERSONAL LINES INSURANCE AGENT COVID-19 Rule Out 02/17/2022 02/17/2022 02/17/2022 8:01 AM PERSONAL LINES INSURANCE AGENT COVID-19 Rule Out 05/24/2022 05/24/2022 05/24/2022 5:52 PM CDT COVID-19 Rule Out 07/17/2022 07/17/2022 07/17/2022 7:02 AM CDT COVID-19 Rule Out 07/17/2022 07/17/2022 07/17/2022 1:53 PM CDT Assessment Noted Time PHQ-9 Depression Total Score: 26 020 7:27 AM CDT documented as of this encounter Care Teams Medical Safety Director Relationship Specialty Start Date End Date Gloria Sorto NP PCP - General NURSE PRACTITIONER 11/25/19 11/25/20 [place] [address] [place] [address] PCP - General FAMILY PRACTICE 11/26/20 12/28/20 Asuncion Galarza, HANDKERCHIEF SAMPLE CLERK- [address] [place] [address] PCP - General Nurse Practitioner Family 12/29/20 02/08/21 [place] [address] [address] [place] [address] PCP - General FAMILY PRACTICE 02/18/21 Leland Lindsay MD [address] [place] [phone] Medical Oncologist HEMATOLOGY/ONCOLOGY 01/11/21 documented as of this encounter
--- OUTSIDE RECORDS SUMMARY | 2024-07-22 14:28 | XMS_ITS | Encounter Summary ---
Author Organization [facility] Address [address] [place] [address] Care Team Providers Care Nurse'S Companion Name Role Phone Leland Lindsay MD Unavailable [phone] Ting Bosch MD Primary Care Provider [phone] Encounter Details Date Type Department Care Team (Late st Contact Info) Description 02/22/2021 Promptu Systemst Message Enc [facility] Medical Group Family & Internal Medicine [facility] [address] [place] [address] [place] [address] [facility]. [address] [place] [address] Lice Social History Tobacco Use Types Packs/Day Years [...] CDT Gender Identity Female 01/20/2021 8:57 PM FLAGMAN Sexual Orientation unknown 01/20/2021 8: 57 PM FLAGMAN COVID-19 Exposure Response Date Recorded In the last month, have you been in contact with someone who was confirmed or suspected to have Coronavirus / COVID-19? No / Unsure 02/18/2021 7:07 AM FLAGMAN documented as of this encounter Plan of Treatment Not on file documented as of this encounter Visit Diagnoses Not on filedocumented in this encounter Additional Health Concerns Infection Onset Date Last Indicated Resolved Time COVID-19 Rule Out 01/14/2022 01/14/2022 01/14/2022 10:36 AM FLAGMAN COVID-19 Rule Out 02/17/2022 02/17/2022 02/17/2022 8:01 AM FLAGMAN COVID-19 Rule Out 05/24/2022 05/24/2022 05/24/2022 5:52 PM CDT COVID-19 Rule Out 07/17/2022 07/17/2022 07/17/2022 7:02 AM CDT COVID-19 Rule Out 07/17/2022 07/17/2022 07/17/2022 1:53 PM CDT Assessment Noted Time PHQ-9 Depression Total Score: 23 08/05/ 021 7:20 AM CDT documented as of this encounter Care Teams Nurse'S Companion Relationship Specialty [place] [address] [facility] [address] [place] [address] PCP - General FAMILY PRACTICE 02/18/21 Leland Lindsay MD [address] [place] [address] [place] [phone] Medical Oncologist HEMATOLOGY/ONCOLOGY 01/11/21 documented as of this encounter
--- OUTSIDE RECORDS SUMMARY | 2024-07-22 14:28 | XMS_ITS | Encounter Summary ---
Author Organization [facility] Address [address] [place] [address] Care Team Providers Care Forestry Fire Aide Name Role Phone Sudhir Jauregui MD Primary Care Provider [phone] Asuncion Galarza [facility] Primary Care Provider + Leland Lindsay MD Unavailable Ting Bosch MD Primary Care Provider [phone] Encounter Details Date Type Department Care Team (Late st Contact Info) Description 12/02/2020 MyChart Message Enc [facility] Medical Group Family & Internal Medicine [facility] [address] [place] [address] [place] [address] [place] [address] RE: Medication Questions Social History Tobacco Use Types Packs/Day Years [...] CDT Gender Identity Female 01/20/2021 8:57 PM CARGO AGENT Sexual Orientation unknown 01/20/2021 8: 57 PM CARGO AGENT COVID-19 Exposure Response Date Recorded In the last month, have you been in contact with someone who was confirmed or suspected to have Coronavirus / COVID-19? No / Unsure 11/26/2020 7:09 AM CDT documented as of this encounter Plan of Treatment Not on file documented as of this encounter Visit Diagnoses Not on filedocumented in this encounter Additional Health Concerns Infection Onset Date Last Indicated Resolved Time COVID-19 Rule Out 01/14/2022 01/14/2022 01/14/2022 10:36 AM CARGO AGENT COVID-19 Rule Out 02/17/2022 02/17/2022 02/17/2022 8:01 AM CARGO AGENT COVID-19 Rule Out 05/24/2022 05/24/2022 05/24/2022 5:52 PM CDT COVID-19 Rule Out 07/17/2022 07/17/2022 07/17/2022 7:02 AM CDT COVID-19 Rule Out 07/17/2022 07/17/2022 07/17/2022 1:53 PM CDT Assessment Noted Time PHQ-9 Depression Total Score: 23 021 7:20 AM CDT documented as of this encounter Care Teams Forestry Fire Aide Relationship Specialty [place] [address] [place] [address] PCP - General FAMILY PRACTICE 11/26/20 12/28/20 Asuncion Galarza FNP- [address] [place], [place] [address] PCP - General Nurse Practitioner Family 12/29/2002/08 [place] [address] [address] [address] PCP - General FAMILY PRACTICE 02/18/21 Leland Lindsay MD [address] [place] [phone] Medical Oncologist HEMATOLOGY/ONCOLOGY 01/11/21 documented as of this encounter
--- OUTSIDE RECORDS SUMMARY | 2024-07-22 14:28 | XMS_ITS | Encounter Summary ---
Author Organization [facility] Address [address] [place] [address] Care Team Providers Care Sas Administrator Name Role Phone Leland Lindsay MD Unavailable [phone] Ting Bosch MD Primary Care Provider [phone] Encounter Details Date Type Department Care Team (Late st Contact Info) Description 02/26/2021 Estimotet Message Enc [facility] [address] [address] Onur Cheng MD [address] [place] [address] Appointment Social History Tobacco Use Types Packs/Day Years [...] CDT Gender Identity Female 01/20/2021 8:57 PM BAR PORTER Sexual Orientation unknown 01/20/2021 8: 57 PM BAR PORTER COVID-19 Exposure Response Date Recorded In the last month, have you been in contact with someone who was confirmed or suspected to have Coronavirus / COVID-19? No / Unsure 02/18/2021 7:07 AM BAR PORTER documented as of this encounter Plan of Treatment Not on file documented as of this encounter Visit Diagnoses Not on filedocumented in this encounter Additional Health Concerns Infection Onset Date Last Indicated Resolved Time COVID-19 Rule Out 01/14/2022 01/14/2022 01/14/2022 10:36 AM BAR PORTER COVID-19 Rule Out 02/17/2022 02/17/2022 02/17/2022 8:01 AM BAR PORTER COVID-19 Rule Out 05/24/2022 05/24/2022 05/24/2022 5:52 PM CDT COVID-19 Rule Out 07/17/2022 07/17/2022 07/17/2022 7:02 AM CDT COVID-19 Rule Out 07/17/2022 07/17/2022 07/17/2022 1:53 PM CDT Assessment Noted Time PHQ-9 Depression Total Score: 23 08/05/ 021 7:20 AM CDT documented as of this encounter Care Teams Sas Administrator Relationship Specialty [place] [address] [facility] [address] [place] [address] PCP - General FAMILY PRACTICE 02/18/21 Leland Lindsay MD [address] [place] [address] [place] [phone] Medical Oncologist HEMATOLOGY/ONCOLOGY 01/11/21 documented as of this encounter
--- OUTSIDE RECORDS SUMMARY | 2024-07-22 14:28 | XMS_ITS | Encounter Summary ---
Author Organization [facility] Address [address] [address] Phone Care Team Providers Care Child And Adolescent Psychiatrist Name Role Phone Leland Lindsay MD Primary Care Provider [phone] Reason for Visit * Reason Comments Medication Refill Encounter Details Date Type Department Care Team (Late st Contact Info) Description 11/17/2021 Refill [facility] [address] [address] [address] Emeli Simon, CHIP FRIER, CAREER CONSULTANT [address] [place] [address] Medication Refill Social History Tobacco Use Types Packs/Day Years [...] on file Sexual Orientation Not on file documented as of this encounter Miscellaneous Notes * Telephone Encounter - Leland Lindsay MD - 11/18/2021 3:58 PM CDT Not seen * Telephone Encounter - Mylene Manley, RN - 11/18/2021 8:01 AM CDT Refill request from pharmacy. Please fill if appropriate. documented in this encounter Plan of Treatment Not on file documented as of this encounter Visit Diagnoses Diagnosis Folic acid deficiency Other B-complex deficiencies documented in this encounter Additional Health Concerns Assessment Noted Time PHQ-9 Depression Total Score: 1 04/24/19 21 8:02 AM CDT documented as of this encounter Care Teams Child And Adolescent Psychiatrist Relationship Specialty Start Date End Date Leland Lindsay MD PCP - General Oncology 07/21/20 documented as of this encounter
--- OUTSIDE RECORDS SUMMARY | 2024-07-22 14:28 | XMS_ITS | Encounter Summary ---
Author Organization [facility] Address [facility] [place] [address] Care Team Providers Care Kitchen Hand Name Role Phone Gloria Sorto NP Primary Care Provider Unav Sudhir Leroy MD Primary Care Provider [phone] Asuncion Galarza [facility] Primary Care Provider + Leland Lindsay MD Unavailable [phone] Ting Bosch MD Primary Care Provider [phone] Encounter Details Date Type Department Care Team (Late st Contact Info) Description 09/22/2001 Abstract [facility] Conversion , Generic Conversion, Social History Tobacco Use Types Packs/Day Years Used Date Smoking Tobacco: Never Assessed Comments Unknown Sex and Gender Information Value Date Recorded Sex Assigned at Female 06/09/2022 9:19 AM CDT Legal Sex Female 4:37 PM CDT Gender Identity Female 01/20/2021 8:57 PM SOLIDWORKS DESIGNER Sexual Orientation unknown 01/20/2021 8: 57 PM SOLIDWORKS DESIGNER documented as of this encounter Plan of Treatment Not on file documented as of this encounter Visit Diagnoses Not on filedocumented in this encounter Additional Health Concerns Infection Onset Date Last Indicated Resolved Time COVID-19 Rule Out 01/14/2022 01/14/2022 01/14/2022 10:36 AM SOLIDWORKS DESIGNER COVID-19 Rule Out 02/17/2022 02/17/2022 02/17/2022 8:01 AM SOLIDWORKS DESIGNER COVID-19 Rule Out 05/24/2022 05/24/2022 05/24/2022 5:52 PM CDT COVID-19 Rule Out 07/17/2022 07/17/2022 07/17/2022 7:02 AM CDT COVID-19 Rule Out 07/17/2022 07/17/2022 07/17/2022 1:53 PM CDT documented as of this encounter Care Teams Kitchen Hand Relationship Specialty Start Date End Date Gloria Sorto NP PCP - General NURSE PRACTITIONER 11/25/19 11/25/20 [place] [address] [place] [address] PCP - General FAMILY PRACTICE 11/26/20 12/28/20 Asuncion Gal[facility]za [facility] [address] [place] [address] PCP - General Nurse Practitioner [facility] 12/29/20 02/08/21 [place] [address] [facility] [address] [place] [address] PCP - General FAMILY PRACTICE 02/18/21 Leland Lindsay MD [address] [place] [phone] Medical Oncologist HEMATOLOGY/ONCOLOGY 01/11/21 documented as of this encounter
--- OUTSIDE RECORDS SUMMARY | 2024-07-22 14:28 | XMS_ITS | Clinical Summary ---
Author Organization [facility] Address [address] [place] [address] Care Team Providers Care Class B Truck Driver Name Role Phone Leland Lindsay MD Unavailable Ting Bosch MD Primary Care Provider [phone] Allergies Active Allergy Reactions Criticality Noted Date Comments Tape Rash Low 02/18/2021 Medications Ferrous Bisglycinate Chelate 28 MG CapIndications:Othe r iron deficiency anemia Take 1 each by mouth 2 (two) times a day. 60 capsule 1 1 Active ondansetron (ZOFRAN-ODT) 4 MG disintegrating tablet Take 1 tablet (4 mg total) by mouth every 8 (eight) hours as needed for Nausea. 20 tablet 3 Active folic acid (FOLVITE) 1 MG tabletIndications:F olic acid deficiency (non anemic) Take 1 tablet by mouth once daily 30 tablet 3 Active metoprolol succinate ER (TOPROL-XL) 25 MG 24 hr tabletIndications:E ssential hypertension TAKE 1 TABLET (25 MG TOTAL) BY MOUTH DAILY. 90 tablet 3 Active DULoxetine (CYMBALTA) 60 MG capsuleIndications: Severe episode of recurrent major depressive disorder, without psychotic features (CMS/HCC HHS/HCC) Take 2 capsules (120 mg total) by mouth daily. 60 capsule 2 3 Active lamoTRIgine (LAMICTAL) 100 MG tabletIndications:S evere episode of recurrent major depressive disorder, without psychotic features (CMS/HCC HHS/HCC) Take 1 tablet (100 mg total) by mouth daily. 30 tablet 3 Active Active Problems Problem Noted Date Diagnosed Date Severe episode of recurrent major depressive disorder, without psychotic features ([facility]) 07/18/2022 Weight loss 12/11/2020 Overview (01/19/2021): Added automatically from request for surgery [id number] Neck pain 07/28/2020 Assessment & Plan (07/28/2020 9:15 AM CDT): Neck pain with right upper extremity radiculopathy. Started off in the finger radiated up to her elbow to her shoulder and into her neck. Positive Spurling. Positive weakness, spasms. Cannot lift. Arm feels like it swollen. Has failed nonsteroidal anti-inflammatories, steroid injection and bracing. Recommend MRI to the cervical spine. If no significant pathology is noted consider EMG/NCV Numbness and tingling of right upper extremity 0 07/28/2020 Assessment & Plan (07/28/2020 9:16 AM CDT): Consider EMG/NCV if MRI of the cervical spine is negative Weakness of right arm 07/28/2020 Assessment & Plan (07/28/2020 9:16 AM CDT): Consistent with cervical radiculopathy. MRI through the cervical spine followed by EMG/NCV if no significant pathology Celiac disease ([facility]) 07/23/2020 Overview (07/23/2020): Added automatically from request for surgery [id number] Diarrhea, unspecified type 07/23/2020 Overview (07/23/2020): Added automatically from request for surgery [id number] Nausea 07/23/2020 Overview (07/23/2020): Added automatically from request for surgery [id number] Periumbilical abdominal pain 07/23/2020 Overview (07/23/2020): Added automatically from request for surgery [id number] Thrombocytosis 01/16/2020 Essential hypertension 11/26/2019 Morbid obesity with BMI of 50.0-59.9, adult 11/07 Other insomnia 11/26/2019 Dysmenorrhea 11/26/2019 Family history of MS (multiple sclerosis) 2019 Polycystic ovarian syndrome 06/18/2015 De Quervain's tenosynovitis, left 05/04/2015 Depressive disorder, not elsewhere classified JACKELYN (generalized anxiety disorder) 03/26/2014 Hirsutism 03/26/2014 Dental caries 02/28/2012 Resolved Problems Problem Noted Date Diagnosed Date Resolved Date Weight loss 12/11/2020 01/11/2021 Overview (12/11/2020): Added automatically from request for surgery [id number] Morbid obesity with body mas s index of 45.0-49.9 in adult 09/10/2015 07/12/2022 Menorrhagia 03/26/2014 07/12/2022 Immunizations Immunization Administration Dates Next Due Dtap (Generic) 04/09/1996, 3,04/23/1991,02/11/1991,1 1990 Hepatitis B 11/30/2000,09/27/1996,04/09/1996 Hib Vaccine, Prp-Omp 06/18/1992,04/23/1991,02/11,1990 Influenza (Generic) 02/18/2021(Deferred: Patient Refused) MMR (Generic) 04/09/1996,06/18/1992 Opv 06/18/1992,02/11/1991,1990 Polio Ipv (Generic) 04/09/1996 Td (Tenivac) preservative free 11/24/2005 Tdap (Adacel) 01/11/2021 Family History Medical History Relation Comments Anxiety Brother 1 Depression Brother 1 Other Brother 1 Bipolar Anxiety Brother 2 Depression Brother 2 Heart Father Heart Mother Other Mother MS Anxiety Sister 1 Depression Sister 1 Other Sister 1 Hashimotos Anxiety Sister 2 Crohns Disease Sister 2 Depression Sister 2 Relation Status Comments Brother 1 Alive Brother 2 Alive Father Alive Mother Alive Sister 1 Alive Sister 2 Alive Social History Tobacco Use Types Packs/Day Years Used Date Smoking Tobacco: Never Smokeless Tobacco: Never Tobacco Cessation:Counseling Given: No Alcohol Use Standard Drinks/Week Comments Never 0 (1 standard drink = 0.6 oz pur e alcohol) AUDIT-C Answer Date Recorded Q1: How often do you have a drink containing alc ohol? Never 11/25/2019 Average Number of Drinks Not on file 020 Frequency of Binge Drinking Not on file 11/06 PHQ-2 Answer Date Recorded Patient Health Questionnaire-2 Score 0 07/12/2022 Comments No Sex and Gender Information Value Date Recorded Sex Assigned at Female 06/09/2022 9:19 AM CDT Legal Sex Female 4:37 PM CDT Gender Identity Female 01/20/2021 8:57 PM RECLAMATION WORKER Sexual Orientation unknown 01/20/2021 8: 57 PM RECLAMATION WORKER Last Filed Vital Signs Vital Sign Reading Time Taken Comments Blood Pressure 130/66 07/17/2022 3:08 PM CDT Pulse 68 07/17/2022 3:08 PM CDT Temperature 36.9 C (98.4 F) 07/17/2022 3:08 PM CDT Respiratory Rate 18 07/17/2022 3:08 PM CDT Oxygen Saturation 97% 07/17/2022 10:00 AM CDT Inhaled Oxygen Concentration - - Weight 135.2 kg (298 lb) 07/16/2022 10:26 PM CDT Height 162.6 cm (5' 4) 07/16/2022 10:26 PM CDT Body Mass Index 51.15 07/16/2022 10:26 PM CDT Plan of Treatment Health Maintenance Due Date Last Done Comments Cervical Cancer Screening Pap Smear (Age 30 to 64) Every 3 Years 1990 Hepatitis C 2008 Annual Physical 01/11/2022 01/11/2021, 11/25/2019 COVID-19 Vaccine ( season) 2023 11/06/2020, 10/13/2020 PHQ-2 (Physician [place]) 02/07/2024 Cervical Cancer Screening Pap with HPV Testing (Age 30 to 64) Every 5 Years 01/14/2026 01/14/2021 Cervical Cancer Screening with HPV 01/14/2026 DTaP, Tdap and Td Vaccines (7 - Td or Tdap) 01/11/2031 01/11/2021, 11/24/2005, 04/09/1996, Additional history exists Hepatitis B Vaccines Completed 11/30/2000, 09/27/1996, 04/09/1996 HPV Vaccines Aged Out No longer eligi ble based on patient's age to complete this topic Meningococcal B Vaccine Aged Out No l onger eligible based on patient's age to complete this topic Meningococcal Vaccine Aged Out No sandra melina eligible based on patient's age to complete this topic Pneumococcal Vaccine: Pediatrics (0 to 5 Years) and At-Risk Patients (6 to 49 Years) Aged Out No longer eligible based on patient's age to complete this topic RSV Immunizations Under 20 Months Aged Out No longer eligible based on patient's age to complete this topic Procedures Procedure Name Priority Date/Time Associated Diagnosis Comments OUTSIDE CYTOPATH CERV/VAG INTERPRET (PAP) 01/14/2021 from Last 3 Months or Most Recently Relevant to Health Maintenance Results * OUTSIDE CYTOPATH VAG/CERV PAP WITH HPV (01/14/2021) 01/14/2021 Narrative 01/14/2021 Ordered by an unspecified provider. us Documents Scanned SCANNING Final Result from Last 3 Months or Most Recently Relevant to Health Maintenance Care Teams Class B Truck Driver Relationship Specialty [place] [address] [facility] [address] [place] [address] PCP - General FAMILY PRACTICE 02/18/21 Leland Lindsay MD [address] [place] [address] [place] [phone] Medical Oncologist HEMATOLOGY/ONCOLOGY 01/11/21
--- OUTSIDE RECORDS SUMMARY | 2024-07-22 14:28 | XMS_ITS | Encounter Summary ---
Author Organization [facility] Address [address] [place] [address] Care Team Providers Care Arabic Teacher Name Role Phone Leland Lindsay MD Unavailable [phone] Ting Bosch MD Primary Care Provider [phone] Encounter Details Date Type Department Care Team (Late st Contact Info) Description 06/06/2021 MyChart Message Enc [facility] Medical Group Family & Internal Medicine [facility] [id number] [place] [phone] [place] [address] [facility]. [address] [place] [address] Clonazepam Social History Tobacco Use Types Packs/Day Years [...] CDT Gender Identity Female 01/20/2021 8:57 PM CHAR 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 Sexual Orientation unknown 01/20/2021 8: 57 PM CHAR 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 documented as of this encounter Plan of Treatment Not on file documented as of this encounter Visit Diagnoses Diagnosis Severe episode of recurrent major depressive disorder, without psychotic features (CMS/HCC HHS/HCC) documented in this encounter Additional Health Concerns Infection Onset Date Last Indicated Resolved Time COVID-19 Rule Out 01/14/2022 01/14/2022 01/14/2022 10:36 AM CHAR 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 COVID-19 Rule Out 02/17/2022 02/17/2022 02/17/2022 8:01 AM CHAR 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 COVID-19 Rule Out 05/24/2022 05/24/2022 05/24/2022 5:52 PM CDT COVID-19 Rule Out 07/17/2022 07/17/2022 07/17/2022 7:02 AM CDT COVID-19 Rule Out 07/17/2022 07/17/2022 07/17/2022 1:53 PM CDT Assessment Noted Time PHQ-9 Depression Total Score: 23 08/05/ 021 7:20 AM CDT documented as of this encounter Care Teams Arabic Teacher Relationship Specialty [place] [address] [facility] [address] [place] [address] PCP - General FAMILY PRACTICE 02/18/21 Leland Lindsay MD [address] [place] [address] [place] [phone] Medical Oncologist HEMATOLOGY/ONCOLOGY 01/11/21 documented as of this encounter
--- OUTSIDE RECORDS SUMMARY | 2024-07-22 14:28 | XMS_ITS | Encounter Summary ---
Author Organization [facility] Address [address] [place] [address] Care Team Providers Care Shovel Log Loader Operator Name Role Phone Gloria Sorto NP Primary Care Provider Unav Sudhir Leroy MD Primary Care Provider [phone] Asuncion Galarza [facility] Primary Care Provider + Leland Lindsay MD Unavailable [phone] Ting Bosch MD Primary Care Provider Encounter Details Date Type Department Care Team (Late st Contact Info) Description 05/11/2020 Lamellar Biomedical Message [facility] [address] [place] [address] Gloria Sorto NP Follow Up/Update Social History Tobacco Use Types Packs/Day Years [...] CDT Gender Identity Female 01/20/2021 8:57 PM SETTER AUTOMATIC SPINNING LATHE Sexual Orientation unknown 01/20/2021 8: 57 PM SETTER AUTOMATIC SPINNING LATHE COVID-19 Exposure Response Date Recorded In the [...] Rule Out 01/14/2022 01/14/2022 01/14/2022 10:36 AM SETTER AUTOMATIC SPINNING LATHE COVID-19 Rule Out 02/17/2022 02/17/2022 02/17/2022 8:01 AM SETTER AUTOMATIC SPINNING LATHE COVID-19 Rule Out 05/24/2022 05/24/2022 05/24/2022 5:52 PM CDT COVID-19 Rule Out 07/17/2022 07/17/2022 07/17/2022 7:02 AM CDT COVID-19 Rule Out 07/17/2022 07/17/2022 07/17/2022 1:53 PM CDT Assessment Noted Time PHQ-9 Depression Total Score: 26 020 7:27 AM CDT documented as of this encounter Care Teams Shovel Log Loader Operator Relationship Specialty Start Date End Date Gloria Sorto NP PCP - General NURSE PRACTITIONER 11/25/19 11/25/20 [place] [address] [place] [address] PCP - General FAMILY PRACTICE 11/26/20 12/28/20 Asuncion Galarza FNP- [address] [address] [place], [place] [id number] PCP - General Nurse Practitioner Family 12/29/20 02/08/21 [place] [address] [address] [address] PCP - General FAMILY PRACTICE 02/18/21 Leland Lindsay MD [address] [place] [phone] Medical Oncologist HEMATOLOGY/ONCOLOGY 01/11/21 documented as of this encounter
--- OUTSIDE RECORDS SUMMARY | 2024-07-22 14:28 | XMS_ITS | Encounter Summary ---
Author Organization [facility] Address [address] [place] [address] Care Team Providers Care Staff Anesthesiologist Name Role Phone Leland Lindsay MD Unavailable [phone] Ting Bosch MD Primary Care Provider [phone] Encounter Details Date Type Department Care Team (Late st Contact Info) Description 02/09/2021 Finale Dessertst Message Enc [facility] Medical Group Family & Internal Medicine [address] [address] Asuncion Galarza, [facility] [address] [place] [address] I'm firing you as my doctor Social History Tobacco Use Types Packs/Day Years [...] CDT Gender Identity Female 01/20/2021 8:57 PM DAIRY SCIENTIST Sexual Orientation unknown 01/20/2021 8: 57 PM DAIRY SCIENTIST COVID-19 Exposure Response Date Recorded In the last month, have you been in contact with someone who was confirmed or suspected to have Coronavirus / COVID-19? No / Unsure 02/01/2021 10:33 AM DAIRY SCIENTIST documented as of this encounter Progress Notes * Mara Esteban RN - 02/09/2021 10:40 AM CSTFrom: Sofie Isaacs To: Asuncion Galarza Sent: 02/09/2021 8:50 AM DAIRY SCIENTIST Subject: I'm firing you as my doctor A doctor it's somebody you supposed to help their patients and the main reason I need to see a doctor is the help with my paperwork but since you seem to be too lazy to actually help I am no longer going to be your patient. It's too bad there are not many good doctors in this world. Also just to let you know the eloina ce that you had call me that I called back for therapy they are no longer taking any more patient's so that was a big waste of time for me. I've been treated like horribly by doctors my whole life and the only Doctor Who's ever done anything for me was Neelima. I'm pissed you made me have a panic attack and a breakdown in the middle of [employer]! that paperwork that you refused to do has to get done otherwise I will lose my job. Please vasu e yourself off as my primary physician Iwill not be recommending you to anybody. Y SCIENTIST documented in this encounter Plan of Treatment Not on file documented as of this encounter Visit Diagnoses Not on filedocumented in this encounter Additional Health Concerns Infection Onset Date Last Indicated Resolved Time COVID-19 Rule Out 01/14/2022 01/14/2022 01/14/2022 10:36 AM DAIRY SCIENTIST COVID-19 Rule Out 02/17/2022 02/17/2022 02/17/2022 8:01 AM DAIRY SCIENTIST COVID-19 Rule Out 05/24/2022 05/24/2022 05/24/2022 5:52 PM CDT COVID-19 Rule Out 07/17/2022 07/17/2022 07/17/2022 7:02 AM CDT COVID-19 Rule Out 07/17/2022 07/17/2022 07/17/2022 1:53 PM CDT Assessment Noted Time PHQ-9 Depression Total Score: 23 021 7:20 AM CDT documented as of this encounter Care Teams Staff Anesthesiologist Relationship Specialty [place] [address] [facility] [place] [address] PCP - General FAMILY PRACTICE 02/18/21 Leland Lindsay MD [address] [facility] [address] [place] [address] Medical Oncologist HEMATOLOGY/ONCOLOGY 01/11/21 documented as of this encounter
--- OUTSIDE RECORDS SUMMARY | 2024-07-22 14:28 | XMS_ITS | Encounter Summary ---
Author Organization [facility] Address [facility] [place] [address] Care Team Providers Care Rail Car Painter/Sandblaster Name Role Phone Gloria Sorto NP Primary Care Provider Unav Sudhir Leroy MD Primary Care Provider [phone] Asuncion Galarza [facility] Primary Care Provider + Leland Lindsay MD Unavailable [phone] Ting Bosch MD Primary Care Provider [phone] Encounter Details Date Type Department Care Team (Late st Contact Info) Description 03/09/2009 Abstract [facility] Conversion , Generic Conversion, Social History Tobacco Use Types Packs/Day Years Used Date Smoking Tobacco: Never Assessed Comments Unknown Sex and Gender Information Value Date Recorded Sex Assigned at Female 06/09/2022 9:19 AM CDT Legal Sex Female 4:37 PM CDT Gender Identity Female 01/20/2021 8:57 PM BATTERY CONTAINER FINISHING HAND Sexual Orientation unknown 01/20/2021 8: 57 PM BATTERY CONTAINER FINISHING HAND documented as of this encounter Plan of Treatment Not on file documented as of this encounter Visit Diagnoses Not on filedocumented in this encounter Additional Health Concerns Infection Onset Date Last Indicated Resolved Time COVID-19 Rule Out 01/14/2022 01/14/2022 01/14/2022 10:36 AM BATTERY CONTAINER FINISHING HAND COVID-19 Rule Out 02/17/2022 02/17/2022 02/17/2022 8:01 AM BATTERY CONTAINER FINISHING HAND COVID-19 Rule Out 05/24/2022 05/24/2022 05/24/2022 5:52 PM CDT COVID-19 Rule Out 07/17/2022 07/17/2022 07/17/2022 7:02 AM CDT COVID-19 Rule Out 07/17/2022 07/17/2022 07/17/2022 1:53 PM CDT documented as of this encounter Care Teams Rail Car Painter/Sandblaster Relationship Specialty Start Date End Date Gloria Sorto NP PCP - General NURSE PRACTITIONER 11/25/19 11/25/20 [place] [address] [place] [address] PCP - General FAMILY PRACTICE 11/26/20 12/28/20 [facility] [address] [place] [address] PCP - General Nurse Practitioner [facility] 12/29/20 02/08/21 [place] [address] [facility] [address] [place] [address] PCP - General FAMILY PRACTICE 02/18/21 Leland Lindsay MD [address] [place] [phone] Medical Oncologist HEMATOLOGY/ONCOLOGY 01/11/21 documented as of this encounter
--- OUTSIDE RECORDS SUMMARY | 2024-07-22 14:28 | XMS_ITS | Encounter Summary ---
Author Organization [facility] Address [address] [place] [address] Care Team Providers Care Radar Mechanic Name Role Phone Gloria Sorto NP Primary Care Provider Unav Sudhir Leroy MD Primary Care Provider [phone] Asuncion Galarza [facility] Primary Care Provider + Leland Lindsay MD Unavailable [phone] Ting Bosch MD Primary Care Provider [phone] Encounter Details Date Type Department Care Team (Late st Contact Info) Description 08/11/2020 LogicLoop Message Enc [facility] Medical Group Family & Internal Medicine [address] [address] [facility] Provider lab results Social History Tobacco Use Types Packs/Day Years [...] CDT Gender Identity Female 01/20/2021 8:57 PM EXERCISE SCIENCE INTERNSHIP Sexual Orientation unknown 01/20/2021 8: 57 PM EXERCISE SCIENCE INTERNSHIP COVID-19 Exposure Response Date Recorded In the last month, have you been in contact with someone who was confirmed or suspected to have Coronavirus / COVID-19? No / Unsure 08/05/2020 7:12 AM CDT documented as of this encounter Plan of Treatment Not on file documented as of this encounter Visit Diagnoses Not on filedocumented in this encounter Additional Health Concerns Infection Onset Date Last Indicated Resolved Time COVID-19 Rule Out 01/14/2022 01/14/2022 01/14/2022 10:36 AM EXERCISE SCIENCE INTERNSHIP COVID-19 Rule Out 02/17/2022 02/17/2022 02/17/2022 8:01 AM EXERCISE SCIENCE INTERNSHIP COVID-19 Rule Out 05/24/2022 05/24/2022 05/24/2022 5:52 PM CDT COVID-19 Rule Out 07/17/2022 07/17/2022 07/17/2022 7:02 AM CDT COVID-19 Rule Out 07/17/2022 07/17/2022 07/17/2022 1:53 PM CDT Assessment Noted Time PHQ-9 Depression Total Score: 23 021 7:20 AM CDT documented as of this encounter Care Teams Radar Mechanic Relationship Specialty Start Date End Date Gloria Sorto NP PCP - General NURSE PRACTITIONER 11/25/19 11/25/20 [place] [address] [place] [address] PCP - General FAMILY PRACTICE 11/26/20 12/28/20 Asuncion Galarza, VALERIE- [address] [place] [address] PCP - General Nurse Practitioner Family 12/29/20 02/08/21 [place] [address] [address] [address] PCP - General FAMILY PRACTICE 02/18/21 Leland Lindsay MD [address] [place] [phone] Medical Oncologist HEMATOLOGY/ONCOLOGY 01/11/21 documented as of this encounter
--- OUTSIDE RECORDS SUMMARY | 2024-07-22 14:28 | XMS_ITS | Encounter Summary ---
Author Organization [facility] Address [address] [place] [address] Care Team Providers Care Renewable Energy Technician Name Role Phone Gloria Sorto NP Primary Care Provider Unav Sudhir Leroy MD Primary Care Provider [phone] Asuncion Galarza [facility] Primary Care Provider + Leland Lindsay MD Unavailable [phone] Ting Bosch MD Primary Care Provider [phone] Encounter Details Date Type Department Care Team (Late st Contact Info) Description 05/16/2020 Equidate Message [facility] [address] [place] [address] Gloria Sorto SAGGER SOAK RE: Question Social History Tobacco Use Types [...] CDT Gender Identity Female 01/20/2021 8:57 PM CHARM 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 HELPER Sexual Orientation unknown 01/20/2021 8: 57 PM CHARM 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 HELPER COVID-19 Exposure Response Date Recorded In the [...] Rule Out 01/14/2022 01/14/2022 01/14/2022 10:36 AM CHARM 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 HELPER COVID-19 Rule Out 02/17/2022 02/17/2022 02/17/2022 8:01 AM CHARM 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 HELPER COVID-19 Rule Out 05/24/2022 05/24/2022 05/24/2022 5:52 PM CDT COVID-19 Rule Out 07/17/2022 07/17/2022 07/17/2022 7:02 AM CDT COVID-19 Rule Out 07/17/2022 07/17/2022 07/17/2022 1:53 PM CDT Assessment Noted Time PHQ-9 Depression Total Score: 26 020 7:27 AM CDT documented as of this encounter Care Teams Renewable Energy Technician Relationship Specialty Start Date End Date Gloria Sorto NP PCP - General NURSE PRACTITIONER 11/25/19 11/25/20 [place] [address] [place] [address] PCP - General FAMILY PRACTICE 11/26/20 12/28/20 Asuncion Galarza FNP- [address] [place], [place] [id number] PCP - General Nurse Practitioner Family 12/29/20 02/08/21 [place] [address] [address] [address] PCP - General FAMILY PRACTICE 02/18/21 Leland Lindsay MD [address] [place] [phone] Medical Oncologist HEMATOLOGY/ONCOLOGY 01/11/21 documented as of this encounter
== END 2024-07-22 13:58 | disposition home or self-care (01) ==
DX: L23.7 Allergic contact dermatitis due to plants, except food (principal)
CPT/HCPCS: 99213; G0463

== ENCOUNTER 2025-01-09 14:36 | Outpatient (CLI) | payer OTHER, SELFPAY | END 2025-01-09 14:37 | disposition home or self-care (01) | LOC: ANHSURGERY 14:38 | PROVIDERS: Visit Provider Obstetrics & Gynecology | DX: Z01.818 Encounter for other preprocedural examination (principal); R10.20 Pelvic and perineal pain unspecified side | CPT/HCPCS: 36415; 86850; 86900; 86901 ==

== ENCOUNTER 2025-01-14 03:30 | Day surgery (SDC) | payer OTHER, SELFPAY ==
[2025-01-08 15:09] VITALS: BMI 44.6
--- NOTE | 2025-01-08 15:49 | PC.NURSE ---
[facility] has started construction of its new state of the art ER which will open Spring 2026. With this, we anticipate parking may be a challenge for some our surgical patients and families. Parking spaces are limited but are available for all Surgical, obstetrics, and ER patients sharing this lot. If you arrive and find you are having a hard time finding a parking space, please note that we understand the challenges, please drive around the hospital and park near Hospital Entrance 1. When you enter this entrance, you can ask a volunteer to direct or take you back to the surgical waiting area to check in. We appreciate everyone?s understanding of these expected challenges while we build for your future. Report to the Outpatient Waiting Room, entrance under the green pavilion located off [address], at time ___8:30AM____ on date ___01/14/2025____. Planned Procedure Time: ____10:30AM____.? Time changes happen often and if your time is changed the preop area will call you the afternoon before. - You and your visitor will be asked to self-screen and do not enter if you have any COVID symptoms. Please call surgeon if you need to reschedule. - A mask is optional within the hospital at this time. Patients may have clear liquids (water, carbonated beverages, clear teas, apple juice) until 3 hours prior to surgery with a maximum of 20 ounces. - No food from midnight until time of surgery and no smoking, or chewing tobacco (or any form of nicotine). No chewing gum, candy or mints. - Infants may have breast milk until 4 hours before surgery, infant formula 6 hours prior to surgery. - Children will be allowed to drink immediately following surgery.? If applicable, please bring a bottle or sippy cup to assist with drinking. Juice, water, soda, and popsicles are readily available.? For infants on formula, please bring formula the day of surgery.? Pacifiers are allowed. Take only the following medications with a SIP of water on the morning of surgery: buspirone,lexapro,oxcarbazepine DO NOT STOP ANY OF YOUR OTHER PRESCRIPTION MEDICATIONS PRIOR TO SURGERY EXCEPT THE FOLLOWING Hold all vitamins and supplements for 3 days per anesthesiologist. Medications to discontinue per physician multivitamin Date to take last dose 01/11/2025 Please no make-up, nail syriac, hairspray, perfume, deodorant, or body powder the day of surgery.? No jewelry (including any body piercings) or valuables the day of surgery, leave them at home.? Please take a shower or bath the night before, or the morning of, surgery with an antibacterial soap.? Wear comfortable, loose fitting clothing.? Children are encouraged to wear pajamas. - Jewelry must be removed prior to entering the operating room.? Rings and piercings that are not removed may be cut off. - The hospital will not accept responsibility for valuables.? - Please leave all valuables, including medications, at home the day of surgery. If you are going home after surgery, a licensed chuck wagon driver must drive you home.? - NO public transportation without another adult if you receive anesthesia. - We recommend that an adult stay with you for 24 hours following discharge. - We also recommend that you do not drive, make important decision, drink alcoholic beverages, or take any drugs that were not prescribed by your health care provider for at least 24 hours after your discharge time. For Pediatric surgeries, we recommend two adults accompany the child home. Follow any additional instructions given to you from your surgeon. Telephone instructions given to ____patient and asked if any additional questions and then verbalized understanding. Patient advised to call surgeon office or pre surgery nurse liaison [phone] if any additional questions.
[2025-01-14] VITALS (11 sets, daily range): BP systolic 94–167; BP diastolic 66–90; PULSE 80–112; RESP 16–20; TEMP 36.2–36.6; O2SAT 92–100
--- OUTSIDE RECORDS SUMMARY | 2025-01-14 03:33 | XMS_ITS | Encounter Summary ---
Author Organization [facility] Address [address] [place] [address] Care Team Providers Care Direct Marketing Specialist Name Role Phone Sudhir Jauregui MD Primary Care Provider [phone] Asuncion Galarza [facility] Primary Care Provider + Leland Lindsay MD Unavailable [phone] Ting Bosch MD Primary Care Provider [phone] Encounter Details Date Type Department Care Team (Late st Contact Info) Description 12/02/2020 MyChart Message Enc [facility] Medical Group Family & Internal Medicine [facility] [address] [place] [address] [place] [address] [place] [address] RE: Medication Questions Social History [...] CDT Gender Identity Female 01/20/2021 8:57 PM 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 Sexual Orientation unknown 01/20/2021 8: 57 PM 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 COVID-19 Exposure Response Date Recorded In the [...] Rule Out 01/14/2022 01/14/2022 01/14/2022 10:36 AM 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 COVID-19 Rule Out 02/17/2022 02/17/2022 02/17/2022 8:01 AM 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 COVID-19 Rule Out 05/24/2022 05/24/2022 05/24/2022 5:52 PM CDT COVID-19 Rule Out 07/17/2022 07/17/2022 07/17/2022 7:02 AM CDT COVID-19 Rule Out 07/17/2022 07/17/2022 07/17/2022 1:53 PM CDT Assessment Noted Time PHQ-9 Depression Total Score: 23 021 7:20 AM CDT documented as of this encounter Care Teams Direct Marketing Specialist Relationship Specialty [place] [address] [place] [address] PCP - General FAMILY PRACTICE 11/26/20 12/28/20 Asuncion Galarza FNP- [address] [place], [place] [id number] PCP - General Nurse Practitioner Family 12/29/2002/08 [place] [address] [address] [address] PCP - General FAMILY PRACTICE 02/18/21 Leland Lindsay MD [address] [place] [phone] Medical Oncologist HEMATOLOGY/ONCOLOGY 01/11/21 documented as of this encounter
--- OUTSIDE RECORDS SUMMARY | 2025-01-14 03:33 | XMS_ITS | Encounter Summary ---
Author Organization [facility] Address [address] [place] [address] Care Team Providers Care Seed Buyer Name Role Phone Leland Lindsay MD Unavailable [phone] Ting Bosch MD Primary Care Provider [phone] Encounter Details Date Type Department Care Team (Late st Contact Info) Description 02/09/2021 Hatcht Message Enc [facility] Medical Group Family & Internal Medicine [address] [address] Asuncion Galarza, [facility] [address] [place] [address] I'm firing you as my [...] CDT Gender Identity Female 01/20/2021 8:57 PM CYCLE COUNTER Sexual Orientation unknown 01/20/2021 8: 57 PM CYCLE COUNTER COVID-19 Exposure Response Date Recorded In the last month, have you been in contact with someone who was confirmed or suspected to have Coronavirus / COVID-19? No / Unsure 02/01/2021 10:33 AM CYCLE COUNTER documented as of this encounter Progress Notes * Mara Esteban RN - 02/09/2021 10:40 AM CSTFrom: Sofie Isaacs To: Asuncion Galarza Sent: 02/09/2021 8:50 AM CYCLE COUNTER Subject: I'm firing you as my doctor [...] Iwill not be recommending you to anybody. E COUNTER documented in this encounter Plan of Treatment Not on file documented as of this encounter Visit Diagnoses Not on filedocumented in this encounter Additional Health Concerns Infection Onset Date Last Indicated Resolved Time COVID-19 Rule Out 01/14/2022 01/14/2022 01/14/2022 10:36 AM CYCLE COUNTER COVID-19 Rule Out 02/17/2022 02/17/2022 02/17/2022 8:01 AM CYCLE COUNTER COVID-19 Rule Out 05/24/2022 05/24/2022 05/24/2022 5:52 PM CDT COVID-19 Rule Out 07/17/2022 07/17/2022 07/17/2022 7:02 AM CDT COVID-19 Rule Out 07/17/2022 07/17/2022 07/17/2022 1:53 PM CDT Assessment Noted Time PHQ-9 Depression Total Score: 23 021 7:20 AM CDT documented as of this encounter Care Teams Seed Buyer Relationship Specialty [place] [address] [facility] [place] [address] PCP - General FAMILY PRACTICE 02/18/21 Leland Lindsay MD [address] [facility] [address] [place] [address] Medical Oncologist HEMATOLOGY/ONCOLOGY 01/11/21 documented as of this encounter
--- OUTSIDE RECORDS SUMMARY | 2025-01-14 03:33 | XMS_ITS | Encounter Summary ---
Author Organization [facility] Address [address] [place] [address] Care Team Providers Care Loan Broker Name Role Phone Gloria Sorto NP Primary Care Provider Unav Sudhir Leroy MD Primary Care Provider [phone] Asuncion Galarza [facility] Primary Care Provider + Leland Lindsay MD Unavailable [phone] Ting Bosch MD Primary Care Provider [phone] Encounter Details Date Type Department Care Team (Late st Contact Info) Description 03/09/2009 Abstract [facility] Conversion , Generic Conversion, Social History Tobacco Use Types Packs/Day Years Used Date Smoking Tobacco: Never Assessed Comments Unknown Sex and Gender Information Value Date Recorded Sex Assigned at Female 06/09/2022 9:19 AM CDT Legal Sex Female 4:37 PM CDT Gender Identity Female 01/20/2021 8:57 PM COMPOSITOR APPRENTICE Sexual Orientation unknown 01/20/2021 8: 57 PM COMPOSITOR APPRENTICE documented as of this encounter Plan of Treatment Not on file documented as of this encounter Visit Diagnoses Not on filedocumented in this encounter Additional Health Concerns Infection Onset Date Last Indicated Resolved Time COVID-19 Rule Out 01/14/2022 01/14/2022 01/14/2022 10:36 AM COMPOSITOR APPRENTICE COVID-19 Rule Out 02/17/2022 02/17/2022 02/17/2022 8:01 AM COMPOSITOR APPRENTICE COVID-19 Rule Out 05/24/2022 05/24/2022 05/24/2022 5:52 PM CDT COVID-19 Rule Out 07/17/2022 07/17/2022 07/17/2022 7:02 AM CDT COVID-19 Rule Out 07/17/2022 07/17/2022 07/17/2022 1:53 PM CDT documented as of this encounter Care Teams Loan Broker Relationship Specialty Start Date End Date Gloria Sorto NP PCP - General NURSE PRACTITIONER 11/25/19 11/25/20 [place] [address] [place] [address] PCP - General FAMILY PRACTICE 11/26/20 12/28/20 Asuncion Galarza [facility] [address] [place] [address] PCP - General Nurse Practitioner [facility] 12/29/20 02/08/21 [place] [address] [facility] [address] [place] [address] PCP - General FAMILY PRACTICE 02/18/21 Leland Lindsay MD [address] [place] [phone] Medical Oncologist HEMATOLOGY/ONCOLOGY 01/11/21 documented as of this encounter
--- OUTSIDE RECORDS SUMMARY | 2025-01-14 03:33 | XMS_ITS | Encounter Summary ---
Author Organization [facility] Address [address] [place] [address] Care Team Providers Care Perch Mender Name Role Phone Gloria Sorto NP Primary Care Provider Unav Sudhir Leroy MD Primary Care Provider [phone] Asuncion Galarza [facility] Primary Care Provider + Leland Lindsay MD Unavailable [phone] Ting Bosch MD Primary Care Provider [phone] Encounter Details Date Type Department Care Team (Late st Contact Info) Description 01/24/2020 MyChart Message Enc [facility] Medical Group Family & Internal Medicine [address] [address] Gloria Sorto, SCIENTIFIC DIVER Medication Social History Tobacco Use Types Packs/Day [...] CDT Gender Identity Female 01/20/2021 8:57 PM HOSE MENDER Sexual Orientation unknown 01/20/2021 8: 57 PM HOSE MENDER COVID-19 Exposure Response Date Recorded In the last month, have you been in contact with someone who was confirmed or suspected to have Coronavirus / COVID-19? No / Unsure 01/16/2020 7:09 AM HOSE MENDER documented as of this encounter Plan of Treatment Not on file documented as of this encounter Visit Diagnoses Not on filedocumented in this encounter Additional Health Concerns Infection Onset Date Last Indicated Resolved Time COVID-19 Rule Out 01/14/2022 01/14/2022 01/14/2022 10:36 AM HOSE MENDER COVID-19 Rule Out 02/17/2022 02/17/2022 02/17/2022 8:01 AM HOSE MENDER COVID-19 Rule Out 05/24/2022 05/24/2022 05/24/2022 5:52 PM CDT COVID-19 Rule Out 07/17/2022 07/17/2022 07/17/2022 7:02 AM CDT COVID-19 Rule Out 07/17/2022 07/17/2022 07/17/2022 1:53 PM CDT Assessment Noted Time PHQ-9 Depression Total Score: 26 020 7:27 AM CDT documented as of this encounter Care Teams Perch Mender Relationship Specialty Start Date End Date Gloria Sorto NP PCP - General NURSE PRACTITIONER 11/25/19 11/25/20 [place] [address] [place] [address] PCP - General FAMILY PRACTICE 11/26/20 12/28/20 Asuncion Galarza FNP- [address] [address] [place], [place] [id number] PCP - General Nurse Practitioner Family 12/29/20 02/08/21 [place] [address] [address] [address] PCP - General FAMILY PRACTICE 02/18/21 Leland Lindsay MD [address] [place] [phone] Medical Oncologist HEMATOLOGY/ONCOLOGY 01/11/21 documented as of this encounter
--- OUTSIDE RECORDS SUMMARY | 2025-01-14 03:33 | XMS_ITS | Encounter Summary ---
Author Organization [facility] Address [address] [place] [address] Care Team Providers Care Pasteurizer Name Role Phone Leland Lindsay MD Unavailable [phone] Ting Bosch MD Primary Care Provider [phone] Encounter Details Date Type Department Care Team (Late st Contact Info) Description 02/22/2021 Red Seraphimt Message Enc [facility] Medical Group Family & Internal Medicine [facility] [address] [place] [address] [place] [address] [facility] [place] [address] Lice Social History Tobacco Use [...] CDT Gender Identity Female 01/20/2021 8:57 PM DIRECTOR OF RELIGIOUS ACTIVITIES Sexual Orientation unknown 01/20/2021 8: 57 PM DIRECTOR OF RELIGIOUS ACTIVITIES COVID-19 Exposure Response Date Recorded In the last month, have you been in contact with someone who was confirmed or suspected to have Coronavirus / COVID-19? No / Unsure 02/18/2021 7:07 AM DIRECTOR OF RELIGIOUS ACTIVITIES documented as of this encounter Plan of Treatment Not on file documented as of this encounter Visit Diagnoses Not on filedocumented in this encounter Additional Health Concerns Infection Onset Date Last Indicated Resolved Time COVID-19 Rule Out 01/14/2022 01/14/2022 01/14/2022 10:36 AM DIRECTOR OF RELIGIOUS ACTIVITIES COVID-19 Rule Out 02/17/2022 02/17/2022 02/17/2022 8:01 AM DIRECTOR OF RELIGIOUS ACTIVITIES COVID-19 Rule Out 05/24/2022 05/24/2022 05/24/2022 5:52 PM CDT COVID-19 Rule Out 07/17/2022 07/17/2022 07/17/2022 7:02 AM CDT COVID-19 Rule Out 07/17/2022 07/17/2022 07/17/2022 1:53 PM CDT Assessment Noted Time PHQ-9 Depression Total Score: 23 08/05/ 021 7:20 AM CDT documented as of this encounter Care Teams Pasteurizer Relationship Specialty [place] [address] [facility] [address] [place] [address] PCP - General FAMILY PRACTICE 02/18/21 Leland Lindsay MD [address] [place] [address] [place] [phone] Medical Oncologist HEMATOLOGY/ONCOLOGY 01/11/21 documented as of this encounter
--- OUTSIDE RECORDS SUMMARY | 2025-01-14 03:33 | XMS_ITS | Encounter Summary ---
Author Organization [facility] Address [address] [place] [address] Care Team Providers Care Fertilizer Applicator Name Role Phone Asuncion Galarza [facility] Primary Care Provider + Leland Lindsay MD Unavailable [phone] Ting Bosch MD Primary Care Provider [phone] Encounter Details Date Type Department Care Team (Late st Contact Info) Description 01/15/2021 [email or web address] Message Enc [facility] Medical Group Family & Internal Medicine [address] [address] Asuncion Galarza [facility] [address] [place] [address] FMLA Social History Tobacco Use [...] CDT Gender Identity Female 01/20/2021 8:57 PM SEAMER PANTY HOSE Sexual Orientation unknown 01/20/2021 8: 57 PM SEAMER PANTY HOSE COVID-19 Exposure Response Date Recorded In the last month, have you been in contact with someone who was confirmed or suspected to have Coronavirus / COVID-19? No / Unsure 01/10/2021 8:13 PM SEAMER PANTY HOSE documented as of this encounter Progress Notes * Mara Esteban RN - 01/18/2021 2:16 PM CST Confirmation received. ER PANTY HOSE documented in this encounter Plan of Treatment Not on file documented as of this encounter Visit Diagnoses Not on filedocumented in this encounter Additional Health Concerns Infection Onset Date Last Indicated Resolved Time COVID-19 Rule Out 01/14/2022 01/14/2022 01/14/2022 10:36 AM SEAMER PANTY HOSE COVID-19 Rule Out 02/17/2022 02/17/2022 02/17/2022 8:01 AM SEAMER PANTY HOSE COVID-19 Rule Out 05/24/2022 05/24/2022 05/24/2022 5:52 PM CDT COVID-19 Rule Out 07/17/2022 07/17/2022 07/17/2022 7:02 AM CDT COVID-19 Rule Out 07/17/2022 07/17/2022 07/17/2022 1:53 PM CDT Assessment Noted Time PHQ-9 Depression Total Score: 23 021 7:20 AM CDT documented as of this encounter Care Teams Fertilizer Applicator Relationship Specialty Start Date End Date Asuncion Galarza [facility] PCP - General Nurse Practitioner Family 12/29/2002/08 [place] [address] [address] [place] [address] PCP - General FAMILY PRACTICE 02/18/21 Leland Lindsay MD [address] [place] [address] [place] [phone] Medical Oncologist HEMATOLOGY/ONCOLOGY 01/11/21 documented as of this encounter
--- OUTSIDE RECORDS SUMMARY | 2025-01-14 03:35 | XMS_ITS | Encounter Summary ---
Author Organization [facility] Address [address] [place] [address] Care Team Providers Care Sweeper Brush Maker Machine Name Role Phone Gloria Sorto NP Primary Care Provider Unav Sudhir Leroy MD Primary Care Provider [phone] Asuncion Galarza [facility] Primary Care Provider + Leland Lindsay MD Unavailable [phone] Ting Bosch MD Primary Care Provider [phone] Encounter Details Date Type Department Care Team (Late st Contact Info) Description 07/16/2020 MyChart Message Enc [facility] Medical Group Family & Internal Medicine [address] [address] Gloria Sorto NP RE: Question [...] CDT Gender Identity Female 01/20/2021 8:57 PM VEST TAILOR Sexual Orientation unknown 01/20/2021 8: 57 PM VEST TAILOR COVID-19 Exposure Response Date Recorded In the [...] Rule Out 01/14/2022 01/14/2022 01/14/2022 10:36 AM VEST TAILOR COVID-19 Rule Out 02/17/2022 02/17/2022 02/17/2022 8:01 AM VEST TAILOR COVID-19 Rule Out 05/24/2022 05/24/2022 05/24/2022 5:52 PM CDT COVID-19 Rule Out 07/17/2022 07/17/2022 07/17/2022 7:02 AM CDT COVID-19 Rule Out 07/17/2022 07/17/2022 07/17/2022 1:53 PM CDT Assessment Noted Time PHQ-9 Depression Total Score: 26 020 7:27 AM CDT documented as of this encounter Care Teams Sweeper Brush Maker Machine Relationship Specialty Start Date End Date Gloria Sorto NP PCP - General NURSE PRACTITIONER 11/25/19 11/25/20 [place] [address] [place] [address] PCP - General FAMILY PRACTICE 11/26/20 12/28/20 Asuncion Galarza, QUALITY ASSURANCE SUPERVISOR CHASSIS- [address] [place] [address] PCP - General Nurse Practitioner Family 12/29/20 02/08/21 [place] [address] [address] [place] [address] PCP - General FAMILY PRACTICE 02/18/21 Leland Lindsay MD [address] [place] [phone] Medical Oncologist HEMATOLOGY/ONCOLOGY 01/11/21 documented as of this encounter
--- OUTSIDE RECORDS SUMMARY | 2025-01-14 03:35 | XMS_ITS | Continuity of Care Document ---
Author Organization [facility] Address [address] [place] [address] Assessment Encounter Date Assessment Date Assessment LastModified by Organization Details LastModified Time 10/24/2024 10/24/2024 Annual gynecological exam performed. Patient will come back in a year unless there are new symptoms. [email or web address] Not available 10/24/2024 15:23:43 Plan of Treatment Reminders Order Date Submit Date Provider Last Modified By Organization Details Last Modified Time Details Appointments SURG Diagnosti c Lap 2024 10:30A Richie WAY MD Not available Not available Not available SURG POST OP 2024 01:30P Richie WAY MD Not available Not available Not available Lab 17-hydrox yprogeste usha, SalN, serum 2024 025 [facility] (Lab), [address] , [place], [address], 11/03/2024 21:54:05 dhea-sulf ate, serum 2024 025 [facility] (Lab), [address] [place], [address], 11/03/2024 21:54:01 estradiol , serum 2024 025 [facility] (Lab), [address] [place], [address], 11/03/2024 21:54:02 FSH (follicle -stimulat ing hormone), serum 2024 025 [facility] (Lab), [address], [place], [address], 11/03/2024 21:54:03 HbA1c (hemoglob in A1c), blood 2024 025 [facility] (Lab), [address], [place], [address], 11/03/2024 21:54:04 lh (luteiniz ing hormone), serum 2024 025 [facility] (Lab), [address], [place], [address], 11/03/2024 21:54:03 progester one, serum 2024 025 [facility] (Lab), [address], [place], [address], 11/03/2024 21:54:02 prolactin , serum 2024 025 [facility] (Lab), [address], [place], [address], 11/03/2024 21:54:03 shbg (sex hormone-b inding globulin) , serum 2024 025 [facility] (Lab), [address], [place], [address], 11/03/2024 21:54:03 TSH, serum or plasma 2024 025 [facility] (Lab), [address], [place], [address], 11/03/2024 21:54:02 testoster one free/test osterone total, ratio, serum 2024 025 [facility] (Lab), [address] [place], [address], 11/03/2024 21:54:05 CMP, serum or plasma 2024 025 [facility] (Lab), [address], [place], [address], 11/03/2024 21:54:01 pap, IG + HR HPV - HPV regardles s but if HPV is positive need subtyping 16,18/45 2024 025 [facility] (Lab), [address], [place], [address], 11/03/2024 21:54:04 Referral None recorded. Procedures None recorded. Surgeries None recorded. Imaging None recorded. Medication Orders None recorded. Patient TargetsNo targets recorded. Patient InstructionsNo instructions recorded. Reason for Referral None Reported. Results Created Date Observation Date Name Description Value Unit Range Abnormal Flag Note LastModifiedBy Organization Detail LastModifiedTime 10/25/1910/24/2024 DHEA SULFA TE DHEA-sulfate 309 ug/dL Femal e Range s Age(y ) Range (ug/d L) 10-15 34-28 0 15-20 65-36 8 20-25 148-4 07 25-35 99-34 0 35-45 61-33 7 45-55 35-25 6 55-65 19-20 5 65-75 9-246 > 75 12-15 4 Not Available [facility] (Lab) [address], [place], [address], 11/03/2024 21:54:01 10/25/19 25 10/24/2024 CMP(C OMPRE HENSI VE METAB OLIC PANEL ) sodium 138 mmol/ L 133-14 6 Not Available [facility] (Lab) [address], [place], [address], 11/03/2024 21:54:01 10/25/1910/24/2024 CMP(C OMPRE HENSI VE METAB OLIC PANEL ) potassium 4.0 mmol/ L 3.5-5. 1 Not Available [facility] (Lab) [address], [place], [address], 11/03/2024 21:54:01 10/25/19 25 10/24/2024 CMP(C OMPRE HENSI VE METAB OLIC PANEL ) chloride 103 mmol/ L 98-107 Not Available [facility] (Lab) [address], [place], [address], 11/03/2024 21:54:01 10/25/19 25 10/24/2024 CMP(C OMPRE HENSI VE METAB OLIC PANEL ) carbon dioxide 26 mmol/ L 21-31 Not Available [facility] (Lab) [address], [place], [address], 11/03/2024 21:54:01 10/25/1910/24/2024 CMP(C OMPRE HENSI VE METAB OLIC PANEL ) anion gap 9 mmol/ L 4-13 Not Available [facility] (Lab) [address], [place], [address], 11/03/2024 21:54:01 10/25/19 25 10/24/2024 CMP(C OMPRE HENSI VE METAB OLIC PANEL ) blood urea nitrogen 13 mg/dL 7-25 Not Available [facility] (Lab) [address], [place], [address], 11/03/2024 21:54:01 10/25/19 25 10/24/2024 CMP(C OMPRE HENSI VE METAB OLIC PANEL ) creatinine 0.78 mg/dL 0.60-1 .30 Not Available [facility] (Lab) [address], [place], [address], 11/03/2024 21:54:01 10/25/1910/24/2024 CMP(C OMPRE HENSI VE METAB OLIC PANEL ) egfrcr (CKD-epi 2020) >90 mL/mi n/1.7 3_m2 >=60 Not Available [facility] (Lab) [address], [place], [address], 11/03/2024 21:54:01 10/25/19 25 10/24/2024 CMP(C OMPRE HENSI VE METAB OLIC PANEL ) calcium 9.5 mg/dL 8.3-10 .5 Not Available [facility] (Lab) [address], [place], [address], 11/03/2024 21:54:01 10/25/19 25 10/24/2024 CMP(C OMPRE HENSI VE METAB OLIC PANEL ) glucose 83 mg/dL 70-100 Not Available [facility] (Lab) [address], [place], [address], 11/03/2024 21:54:01 10/25/19 25 10/24/2024 CMP(C OMPRE HENSI VE METAB OLIC PANEL ) protein, total 7.1 g/dL 6.4-8. 3 Not Available [facility] (Lab) [address], [place], [address], 11/03/2024 21:54:01 10/25/19 25 10/24/2024 CMP(C OMPRE HENSI VE METAB OLIC PANEL ) albumin 4.5 g/dL 3.5-5. 0 Not Available [facility] (Lab) [address], [place], [address], 11/03/2024 21:54:01 10/25/19 25 10/24/2024 CMP(C OMPRE HENSI VE METAB OLIC PANEL ) ALT 12 units /L 9-43 Not Available [facility] (Lab) [address], [place], [address], 11/03/2024 21:54:01 10/25/19 25 10/24/2024 CMP(C OMPRE HENSI VE METAB OLIC PANEL ) alkaline phosphatase 79 units /L 34-104 Not Available [facility] (Lab) [address] [place], [address], 11/03/2024 21:54:01 10/25/19 25 10/24/2024 CMP(C OMPRE HENSI VE METAB OLIC PANEL ) AST 13 units /L 13-39 Not Available [facility] (Lab) [address], [place], [address], 11/03/2024 21:54:01 10/25/1910/24/2024 CMP(C OMPRE HENSI VE METAB OLIC PANEL ) bilirubin, total 0.3 mg/dL 0.2-1. 2 Not Available [facility] (Lab) [address], [place], [address], 11/03/2024 21:54:01 10/25/1910/24/2024 TSH, REFLE X FREE T4 TSH 1.85 uIU/m L 0.30-5 .33 Not Available [facility] (Lab) [address], [place], [address], 11/03/2024 21:54:02 10/25/1910/24/2024 ESTRA DIOL estradiol 304.0 pg/mL This assay was perfo rmed using [employer] ratio n reage nts and test kits. Value s obtai hetal with other assay metho ds or kits canno t be used inter gabriel eay . Femal e Estra diol Range s: Folli cular phase 12.4- 233 pg/mL Ovula tion phase 41.0- 398 pg/mL Lutea l phase 22.3- 341 pg/mL Postm enopa usal <5-13 8 pg/mL Healt hy Pregn ant Women 1st Trime ster 154-3 243 pg/mL 2nd Trime ster 1561- 45786 pg/mL 3rd Trime ster 8525- >3000 0 pg/mL Not Available [facility] (Lab) [address], [place], [address], 11/03/2024 21:54:02 10/25/1910/24/2024 PROGE STERO NE progesterone 3.10 NG/mL This assay was perfo rmed using [employer] ratio n reage nts and test kits. Value s obtai hetal with other assay metho ds or kits canno t be used inter gabriel eably . Femal e Proge stero ne Range s: Folli cular phase 0.06- 0.89 ng/mL Ovula tion phase 0.12- 12.00 ng/mL Lutea l phase 1.83- 23.90 ng/mL Postm enopa usal <0.05 -0.13 ng/mL Healt hy Pregn ant Women 1st Trime ster 11.0- 44.30 2nd Trime ster 25.40 -83.3 0 3rd Trime ster 58.70 -214. 00 Not Available [facility] (Lab) [address] [place], [address], 11/03/2024 21:54:02 10/25/1910/24/2024 PROLA CTIN prolactin, total 27.70 NG/mL 4.79-2 3.30 high This assay was perfo rmed using [employer] ratio n reage nts and test kits. Value s obtai hetal with other assay metho ds or kits canno t be used inter [facility] amadormeredith . Not Available [facility] (Lab) [address], [place], [address], 11/03/2024 21:54:03 10/25/1910/24/2024 LH (LUTE NIZIN G HORMO NE) LH 8.1 mIU/m L This assay was perfo rmed using [employer] reage nts and test kits. Value s obtai hetal with other assay metho ds or kits canno t be used inter [facility] . Femal es Mid-F ollic ular: 2.4-1 2.6 mIU/m L Mid-C ycle: 14.0- 95.6 mIU/m L Mid-L uteal : 1.0-1 1.4 mIU/m L Postm enopa use: 7.7-5 8.5 mIU/m L Not Available [facility] (Lab) [address] [place], [address], 11/03/2024 21:54:03 10/25/1910/24/2024 FSH FSH 2.2 mIU/m L This assay was perfo rmed using [employer] n reage nts and test kits. Value s obtai hetal with other assay metho ds or kits canno t be used inter gabriel eably . Femal es Folli cular : 3.5-1 2.5 mIU/m L Ovula tion: 4.7-2 1.5 mIU/m L Lutea l: 1.7-7 .7 mIU/m L Postm enopa use: 25.8- 134.8 mIU/m L Not Available [facility] (Lab) [address], [place], [address], 11/03/2024 21:54:03 10/25/19 25 10/24/2024 HUMAN SEX HORMO NE MARCUS NG GLOBU CHIN sex hormone binding globulin 62.6 nmole s/L 18.2-1 35.5 Not Available [facility] (Lab) [address], [place], [address], 11/03/2024 21:54:03 10/25/1910/24/2024 HEMOG LOBIN A1C hemoglobin A1C 5.2 % 4.0-5. 6 The Ameri can Diabe berry [employer] iatio n recom mends that a prima ry goal of thera py shoul d be a HBA1C of < 7% and that physi cians shoul d reeva luate the treat ment regim en in patie nts with HBA1C value s consi stent ly > 8%. <5.7% Rosalee l 5.7 - 6.4% Incre ased risk for diabe berry >=6.5 % Diagn ostic of diabe berry <7.0% Goal of thera py >8.0% Actio n sugge sted Not Available [facility] (Lab) [address], [place], [address], 11/03/2024 21:54:04 10/25/1910/24/2024 IMAGE GUIDE D PAP AND HPV REGAR DLESS image guided Pap, HPV regardless of Pap result SEE RESULT S BELOW CASE REPOR T: Cytol ogy Gynec ologi nora Repor t Case: [id number] Autho dev ferris Provi daria: Irma Weathers, FLORENCIA Barajas cted: 10/24 1516 Order ing Locat ion: [place] [facility] [place] quentin: 10/25 0936 First Terry n: Jhonny Patel, CT Speci men: Terry webb Pap - Image d, Cervi x STATE MENT OF ADEQU ACY: Satis facto ry for evalu ation Trans forma tion zone compo nent prese nt ----- ----- ----- ----- ----- ----- ----- ----- ----- ----- ----- ----- ----- ----- ----- ----- ----- ---- FINAL DIAGN OSIS: Negat jerel for Intra epith elial Nika lopez or Trinity campo (NIL) . Elect patrick marino d by Jhonny Patel, CT on 2024 at 1423 CDT ----- ----- ----- ----- ----- ----- ----- ----- ----- ----- ----- ----- ----- ----- ----- ----- ----- ---- HPV RESUL TS: HPV mRNA E6/E7 : No HPV mRNA Detec remy NOTE: This high risk HPV mRNA assay detec ts fourt een high- risk HPV types (16, 18, 31, 33, 35, 39, 45, 51, 52, 56, 58, 59, 66, 68) witho ut diffe renti ation . COMME NT: This speci men was revie wed by a Cytot echno logis t and/o r Patho logis t (as indic ated in this repor t) after evalu ation using the Thinp rep Imagi ng Syste m. CLINI NORA INFOR MATIO N: Menst rual Statu s: LMP (if appli cable ): Clini nora Histo ry/Pr eviou s Pap: Type of Neopl dena (if appli cable ): Signi fican t Clini nora Findi ngs: Other Histo ry: Hormo darby (if appli cable ): PAP EDUCA BOBBI L NOTE: The Pap Test is a scree jon test with an inher ent false negat jerel rate. Liqui d-bas ed sampl ing may decre ase, but will not elimi terence, false negat jerel resul ts. A negat jerel resul t does not precl ude the prese nce and/o r devel opmen t of disea se, since the prese nce of abnor mal cells in the sampl e depen ds on the locat ion of the lesio n and sampl ing techn ique. Leti nued regul ar scree jon is the best metho d of cance r preve ntion . If repor remy cytol ogic findi ng do not corre late with physi nora and/o r histo rical findi ngs, furth er inves tigat ion is recom kayla d, as clini elaine warra nted. Not Available [facility] (Lab) [address], [place], [address], 11/03/2024 21:54:04 10/25/19 25 10/24/2024 CT/GC AND TRICH OMONA S VAGIN EFE (RRNA ), THINP REP VIAL CT/GC and trichomonas vaginalis (rrna), thinprep SEE RESULT S BELOW negati ve CHLAM YDIA TRACH OMATI S, PCR: Negat jerel NEISS ERIA GONOR RHOEA E, PCR: Negat jerel TRICH OMONA S VAGIN EFE RIBOS OMAL RNA (RRNA ): Negat jerel Not Available [facility] (Lab) [address], [place], [address], 11/03/2024 21:54:04 10/25/1910/24/2024 TESTO STERO NE, FREE( DIALY SIS) AND TOTAL (LC/M S/MS) testosterone , total 48 NG/dL 2-45 high For addit ional infor matio n, pleas e refer to http: //payton lopez.que stdia gnost ics.c om/fa q/ Total Testo stero neLCM SMSFA Q165 (This link is being provi ded for infor angelo smith/ educa bobbi l purpo ses only. ) This test was devel oped and its jordan tical perfo rmanc e fausto cteri stics have been deter mined by [employer] katerine s Jose D [place], [place]. It has not been clear ed or appro quentin by the U.S. Food and Drug Admin istra tion. This assay has been valid ated pursu ant to the CLIA regul ation s and is used for clini nora purpo ses. Not Available [facility] (Lab) [address], [place], [address], 11/03/2024 21:54:05 10/25/1910/24/2024 TESTO STERO NE, FREE( DIALY SIS) AND TOTAL (LC/M S/MS) testosterone , free 4.2 pg/mL 0.1-6. 4 This test was devel oped and its jordan tical perfo rmanc e fausto cteri stics have been deter mined by [employer] k[employer] Jose D ls [place], [place]. It has not been clear ed or appro quentin by the U.S. Food and Drug Admin istra tion. This assay has been valid ated pursu ant to the CLIA regul ation s and is used for clini nora purpo ses. Perfo rming Organ izati on [facility] angelo n: Site ID: [id number] Name: [employer] katerine miles Jose D [employer] Addre ss: [id number] [facility] [place], [place] Direc tor: Jenifer Anguiano MD PhD Not Available [facility] (Lab) [address] [place], [address], 11/03/2024 21:54:05 10/25/1910/24/2024 17-OH PROGE STERO NE 17-hydroxypr ogesterone, lc/MS/MS 59 NG/dL Adult Femal e Refer ence Range s for 17-Hy droxy proge stero ne: Pre-M enopa usal Mid Folli cular : 23-10 2 ng/dL Pre-M enopa usal Surge : 67-34 9 ng/dL Pre-M enopa usal Mid Lutea l: 139-4 31 ng/dL Postm enopa usal Phase : < or = 45 ng/dL Pregn kimi: First Trime ster: 78-45 7 ng/dL Secon d Trime ster: 90-35 7 ng/dL Third Trime ster: 144-5 78 ng/dL This test was devel oped and its jordan tical perfo rmanc e fausto cteri stics have been deter mined by [facility] katerine s. It has not been clear ed or appro quentin by the FDA. This assay has been valid ated pursu ant to the CLIA regul ation s and is used for clini nora purpo ses. Perfo rming Organ izati on Infor matio n: Site ID: [id number] Name: [facility] Srinivasan garcias s/Amanuel irwin C-S an Derek [place] , Addre ss: [id number] [facility] [place] [address] Direc tor: Maria Del Carmen canela MD,Ph D,ERICK Not Available [facility] (Lab) [address], [place], [address], 11/03/2024 21:54:05 11/01/1910/31/2024 US, pelvi s No observ ation record ed. [email or web address] [place] [address], [place], [address], 10/31/2024 17:27:25 11/01/1910/31/2024 US, trans esterin al No observ ation record ed. [email or web address] [place] [address], [place], [address], 10/31/2024 17:27:34 11/01/1910/31/2024 US, pelvi s No observ ation record ed. jessica Javed [address], [place], [address], 11/08/2024 10:46:41 Result Notes None recorded. Procedures Surgical History Date Name Laterality Status Provider Name and Address Organization Details Recorded Time 10/24/2024 Date of Last Pap Smear completed [facility] 11/28/2024 15:15:33 Imaging Results None recorded. Procedure Notes None recorded. Medical Equipment None Reported. Allergies Allergen ID Allergen Name Allergen Category Reaction Reaction Severity Criticality Documentation Date Start Date Code Code System Note Provider Name and Address Organization Details Recorded Time 09768 Adhesive agent (substanc e) environme nt,medica tion rash Not available low 01/14/20252021 58416 0007 SNOMED Not Available josefa - External Data Service - prod 03:02:04 Medications Name Sig Start Date Stop Date Status Note LastModified by Organization Details LastModified Time buspirone 5 mg tablet TAKE 1 TABLET BY MOUTH TWICE A DAY 10/24 completed Not Available Not Available Not Available oxcarbazepi ne 150 mg tablet TAKE 1 TABLET BY MOUTH TWICE A DAY 10/24 completed Not Available Not Available Not Available prednisone 10 mg tablet PLEASE SEE ATTACHED FOR DETAILED DIRECTION S 10/24 completed Not Available Not Available Not Available oxcarbazepi ne 300 mg tablet Take 1 tablet twice a day by oral route. active Not Available Not Available No t Available cephalexin 500 mg capsule TAKE 1 CAPSULE BY MOUTH EVERY 6 HOURS FOR 7 DAYS 10/24 completed Not Available Not Available Not Available buspirone 10 mg tablet 2 TABLET BY MOUTH EVERY MORNING FOR 90 DAYS, AND 2 1/2 TABLET BY MOUTH EVERY EVENING FOR 90 DAYS active Not Available Not Available No t Available hydroxyzine HCl 25 mg tablet TAKE 1 TO 2 TABLETS BY MOUTH DAILY active Not Available Not Available No t Available methylpredn isolone 4 mg tablets in a dose pack TAKE 6 TABLETS ON DAY 1 DIRECTED ON PACKAGE AND DECREASE BY 1 TAB EACH DAY FOR A TOTAL OF 6 DAYS 10/24 completed Not Available Not Available Not Available spironolact one 50 mg tablet Take 1 tablet every day by oral route. 2024 active Not Available Not Available Not Avai labvalentina escitalopra m 10 mg tablet TAKE 1 TABLET BY MOUTH EVERY DAY 10/24 completed Not Available Not Available Not Available escitalopra m 20 mg tablet TAKE 1 TABLET BY MOUTH EVERY DAY active Not Available Not Available No t Available bupropion HCl XL 150 mg 24 hr tablet, extended release TAKE 1 TABLET EVERY MORNING active Not Available Not Available No t Available Zumandimine (28) 3 mg-0.03 mg tablet TAKE 1 TABLET BY MOUTH EVERY DAY 11/28 completed Not Available Not Available Not Available Vitals Date Recorded Body height Body mass index (BMI) Body weight Systolic And Diastolic Provider Name and Address Organization Details Last Updated DateTime 10/24/2024 162.56 cm 48.2 kg/m2 364258.46 g 118/70 mm[Hg] Tawny Calix [facility] 10/24/2024 15:25:17 Social History Question Answer Notes LastModified by Organizat ion Details LastModified Time Tobacco Smoking Status Never Smoker Tawny Calix [facility], [facility] 10/24/2024 15:30:42 Do You Have An Advance Directive? No [email or web address] Information not available 10/24/2024 Are You Blind Or Do You Have Difficulty Seeing? Yes Glasses [email or web address] Information not available 10/24/2024 In The 14 Days Before Symptom Onset, Have You Had Close Contact With A Laboratory-confir med COVID-19 While That Case Was Ill? No [email or web address] Information not available 10/24/2024 In The 14 Days Before Symptom Onset, Have You Had Close Contact With A Person Who Is Under Investigation For COVID-19 While That Person Was Ill? No [email or web address] Information not available 10/24/2024 Have You Been To An Area Known To Be High Risk For COVID-19? No [email or web address] Information not available 10/24/2024 Are You Deaf Or Do You Have Serious Difficulty Hearing? No [email or web address] Information not available 10/24/2024 What Type Of Diet Are You Following? REGULAR [email or web address] Information not available 10/24/2024 What Is The Highest Grade Or Level Of School You Have Completed Or The Highest Degree You Have Received? [id number] [email or web address] Information not available 10/24/2024 Do You Use Your Seat Belt Or Car Seat Routinely? No [email or web address] Information not available 10/24/2024 Are You Sexually Active? No [email or web address] Information not available 10/24/2024 Do You Have Smoke And Carbon Monoxide Detectors In Your Home? Yes [email or web address] Information not available 10/24/2024 Has Tobacco Cessation Counseling Been Provided? No [email or web address] Information not available 10/24/2024 Do You Have Difficulty Walking Or Climbing Stairs? Yes Stairs, Knee [email or web address] Information not available 10/24/2024 Sex: Unknown Functional Status Question Answer Note LastModified by Organizat ion Details LastModified Time Do you use any illicit or recreational drugs? No Information not available 10/24/2024 Do you or have you ever used any other forms of tobacco or nicotine? No [email or web address] Information not available 10/24/2024 Are you currently employed? Yes [email or web address] Information not available 10/24/2024 Are you able to walk independently without assistance or assistive devices? YESWOREST [email or web address] Information not available 10/24/2024 Are you able to care for yourself independently? Yes Information not available 10/24/2024 Do you have difficulty dressing, bathing, grooming, or toileting? No [email or web address] Information not available 10/24/2024 Mental Status Question Answer Note LastModified by Organization D etails LastModified Time Do you feel stressed (tense, restless, nervous, or anxious, or unable to sleep at night)? [id number] Information not available 10/24/2024 Family History Nothing Reported. Medical History Condition Response Anxiety Disorder Y Other Y Gynecological History Statement/Question Response Abnormal Pap N Flow Moderate Date of Last Mammogram Date of LMP 10/27/2024 On BCP's at Conception? N Was last menstrual period normal Y STIs/STDs N HPV Vaccine N Duration of Flow (days) 7 Current Control Method None Are cycles usually normal Y Frequency of Cycle (Q days) 28 Sexually Active? N Menses Monthly Y Date of Last Pap Smear 10/24/2024 Sexual Problems? N LMP Definite Obstetrics History GPAL:G 0 P 0 0 0 0 Past Encounters Encounter ID Performer Location Encounter Start Date Encounter Closed Date Diagnosis/Indication Diagnosis SNOMED-CT Code Diagnosis ICD10 Code Diagnosis IMO Codes Diagnosis Note [id number] BRUCE Del Cid [place] [address] [address] 10/24/2024 15:05:40 10/24/2024 17:13:13 Gynecologic examination [id number] Z01.474 [id number] WWEBC - declinedPa p - done todaySTI screen - gc/ct/tric h testing added to papRoutine labs - PCPRTC in 1 yr or sooner if needed It is strongly advised to have an annual flu shot and up can obtain at most pharmacies . If you have not had a TDap shot in the last 10 years you should obtain one as well. Discussed with patient & provided with informatio n regarding the HPV vaccine if applicable . Encourage safe sexual practices, to use condoms and limit partners if not already in a monogamous relationsh ip. Do monthly self breast exams. BRCA testing is now available for patients with strong genetic history of female cancer. If interested contact the office. Engage in regular exercise. Avoid tobacco and illicit drugs. This lifestyle behavior pattern will lead to less health conditions and longer life span. If BMI greater than 25 dietary consult advised. Questions answered. Pain in pelvis [id number] R10.2 [id number] This patient is a 34-year-ol d female with pelvic pain. We have agreed to complete the evaluation with pelvic ultrasound . The patient will return after the pelvic ultrasound to discuss those findings and to develop a treatment plan. A comprehens jerel history and physical exam was performed today. We spent over 25 minutes face-to-fa ce. The patient was given precaution s. She will contact clinic if pelvic pain increases in frequency or intensity. Also notify clinic of any new symptoms associated with pelvic pain. She does not appear to have an acute pelvic infection today, but was asked to contact us Immediatel y with nausea, vomiting, fever, chills. pelvic u/s orderedSTI testing doneUPT declined Acne [id number] L70.9 [id number] Female hirsutism [id number] L68.0 03747 labs orderedwil l f/u to review labs and u/s Time spent in visit is a total of 40 mins with at least 50% of visit consisting of counseling and review of plan of care. Venereal d isease screening [id number] Z11.3 [id number] Health Concerns Section Related Observation LastModified by Organization Detai ls LastModified Time None Recorded Concern Status LastModified by Organization Details LastModified Time None Recorded Payers Encounter Date Sequence Insurance Name Policy Number Policy Sanchez Covered Member ID Sanchez Member ID Guarantor Name 10/24/2024 1 [facility] [id number] Sofie Isaacs [id number] Sofie Isaacs Notes Date Note Type Note Provider Name and Address Organization Details Recorded Time 5 text/html Annual GYNReported by PatientGenitourinary symptomsFor menstrual cycle, patient reportssevere dysmenorrhea. For urinary symptoms, patient reportsno hematuriaandno incontinence. For vulva, patient reportsno genital lesion. For vagina, patient reportsnormal vaginal discharge.Breast symptomsFor breast, patient reportsno breast pain,no breast lump, andno nipple discharge.ContraceptionFo r current contraception, (not sa currently).Endocrine symptomsFor sexual complaints, patient reportsno sexual complaints,no pain during intercourse, andnormal libido. For menopausal symptoms, patient reportsno menopausal symptomsandnormal vaginal lubrication.Psychological symptomsFor psychological symptoms, patient reportsno depression,no anxiety, andno pmdd.Preventative measuresFor preventive measures, patient reportsencourage self breast examination,encourage regular exercise,encourage no tobacco use, andencourage regular mammograms starting age 40.34yo G0 wweLast pap around 10 yrs agono h/o abnormal papsmonthly periods, lasting 7 days, normal flow, significant cramping during her periodsPt states she was diagnosed with PCOS previously. Has been experiencing bilateral lower pelvic pain on and off for the past 3+ months. Comes and goes. Worse leading up to and on her periods. Not SA x 4-5 yrs.Unwanted hair growth on face/chin/neck/chestacne not resolving with OTC treatments [facility] [address], [place], [address], [place] [facility] 10/24/2024 17:02:42 OBGyn Episode No OBEpisode recorded.
--- OUTSIDE RECORDS SUMMARY | 2025-01-14 03:35 | XMS_ITS | Clinical Summary ---
Author Organization [facility] Address [address] [place] [address] Phone Care Team Providers Care Veneer Taping Machine Offbearer Name Role Phone Leland Lindsay MD Primary [...] Comments Hepatitis C Virus (HCV) Screening 1990 Varicella Immunization (1 of 2 - 13+ 2-dose series) 10/03/2003 DTaP/Tdap/Td Immunization (6 - Tdap) 11/25/2005 11/24/2005, 04/09/1996, 06/18/1992, Additional history exists Pap Smear 10/03/2011 Human Papillomavirus (HPV) Immunization (1 - 3-dose SCDM series) 2017 Cervical Cancer Screening (CCS) 2020 HPV/Cotest 2020 Influenza Immunization (#1) 2024 SARS-COV-2 Immunization (3 - season) 2024 11/06/2020, 10/13/2020 Respiratory Syncytial Virus (RSV) Immunization (Adult) (1 [...] patient's age to complete this topic Insurance [facility] [place] [address] Care Teams Veneer Taping Machine Offbearer Relationship Specialty Start Date End Date Leland Lindsay MD PCP - General Oncology 07/21/20
--- OUTSIDE RECORDS SUMMARY | 2025-01-14 03:35 | XMS_ITS | Encounter Summary ---
Author Organization [facility] Address [address] [place] [id number] Care Team Providers Care Body Trimmer Upholsterer Name Role Phone Gloria Sorto NP Primary Care Provider Unav Sudhir Leroy MD Primary Care Provider [phone] Asuncion Galarza [facility] Primary Care Provider + Leland Lindsay MD Unavailable [phone] Ting Bosch MD Primary Care Provider [phone] Encounter Details Date Type Department Care Team (Late st Contact Info) Description 08/11/2020 [facility] Message Enc [facility] Family & Internal Medicine [address] [address] [facility] Provider lab results Social History Tobacco Use [...] CDT Gender Identity Female 01/20/2021 8:57 PM DIGITAL MEDIA STRATEGIST Sexual Orientation unknown 01/20/2021 8: 57 PM DIGITAL MEDIA STRATEGIST COVID-19 Exposure Response Date Recorded In the [...] Rule Out 01/14/2022 01/14/2022 01/14/2022 10:36 AM DIGITAL MEDIA STRATEGIST COVID-19 Rule Out 02/17/2022 02/17/2022 02/17/2022 8:01 AM DIGITAL MEDIA STRATEGIST COVID-19 Rule Out 05/24/2022 05/24/2022 05/24/2022 5:52 PM CDT COVID-19 Rule Out 07/17/2022 07/17/2022 07/17/2022 7:02 AM CDT COVID-19 Rule Out 07/17/2022 07/17/2022 07/17/2022 1:53 PM CDT Assessment Noted Time PHQ-9 Depression Total Score: 23 021 7:20 AM CDT documented as of this encounter Care Teams Body Trimmer Upholsterer Relationship Specialty Start Date End Date Gloria Sorto NP PCP - General NURSE PRACTITIONER 11/25/19 11/25/20 [place] [address] [place] [address] PCP - General FAMILY PRACTICE 11/26/20 12/28/20 Asuncion Galarza, VALERIE- [address] [place] [address] PCP - General Nurse Practitioner Family 12/29/20 02/08/21 [place] [id number] [address] [address] PCP - General FAMILY PRACTICE 02/18/21 Leland Lindsay MD [address] [place] [phone] Medical Oncologist HEMATOLOGY/ONCOLOGY 01/11/21 documented as of this encounter
--- OUTSIDE RECORDS SUMMARY | 2025-01-14 03:35 | XMS_ITS | Data Portability ---
Author Organization [facility] Address [address] [place] [address] Assessment Encounter Date Assessment Date Assessment LastModified by Organization Details LastModified Time 10/24/2024 10/24/2024 Annual gynecological exam performed. Patient will come back in a year unless there are new symptoms. [email or web address] Not available 10/24/2024 15:23:43 Plan of Treatment Reminders Order Date Submit Date Provider Last Modified By Organization Details Last Modified Time Details Appointments SURG Diagnosti c Lap 2024 10:30A Richie ROYAL MD Not available Not available Not available SURG POST OP 2024 01:30P Richie ROYAL MD Not available Not available Not available Lab 17-hydrox yprogeste usha, SalN, serum 2024 025 [facility] (Lab), [address], [place], [address], 11/03/2024 21:54:05 dhea-sulf ate, serum 2024 025 [facility] (Lab), [address] [place], [address], 11/03/2024 21:54:01 estradiol , serum 2024 025 [facility] (Lab), [address] , [place], [address], 11/03/2024 21:54:02 FSH (follicle -stimulat ing hormone), serum 2024 025 [facility] (Lab), [address], [place], [address], 11/03/2024 21:54:03 HbA1c (hemoglob in A1c), blood 2024 025 [facility] (Lab), [address], [place], [address], 11/03/2024 21:54:04 lh (luteiniz ing hormone), serum 2024 025 [facility] (Lab), [address], [place], [address], 11/03/2024 21:54:03 progester one, serum 2024 025 [facility] (Lab), [address], [place], [address], 11/03/2024 21:54:02 prolactin , serum 2024 025 [facility] (Lab), [address], [place], [address], 11/03/2024 21:54:03 shbg (sex hormone-b inding globulin) , serum 2024 025 [facility] (Lab), [address], [place], [address], 11/03/2024 21:54:03 TSH, serum or plasma 2024 025 [facility] (Lab), [address], [place], [address], 11/03/2024 21:54:02 testoster one free/test osterone total, ratio, serum 2024 025 [facility] (Lab), [address] [place], [address], 11/03/2024 21:54:05 CMP, serum or plasma 2024 025 [facility] (Lab), [address], [place], [address], 11/03/2024 21:54:01 pap, IG + HR HPV - HPV regardles s but if HPV is positive need subtyping 16,18/45 2024 025 [facility] (Lab), [address] , [place], [address], 11/03/2024 21:54:04 Referral None recorded. Procedures None recorded. Surgeries laparosco py, diagnosti c (SURG) [address] [facility], [facility] [address], [place], [address], 12/13/2024 16:20:26 Imaging US, pelvis [address], [address], [address], [place], [address], 10/31/2024 18:25:28 US, transvagi nal 2024 [address], [address], [place], [address], 10/31/2024 18:25:28 Medication Orders spironola ctone 50 mg tablet [address] [facility]/Pharmacy #[id number], [address] [place] [address], [address], 11/29/2024 09:30:40 spironola ctone 50 mg tablet [address] [facility]/Pharmacy #[id number], [address] [place] [address], [address], 11/07/2024 15:39:56 drospiren one 3 mg-ethiny l estradiol 0.03 mg tablet [address] [facility]/Pharmacy #[id number], [address], [place], [address], 11/28/2024 15:15:18 Patient TargetsNo targets recorded. Patient InstructionsNo instructions [...] 9-246 > 75 12-15 4 Not Available [facility] (Lab) [address] [facility], [place], [address], 11/03/2024 21:54:01 10/25/19 25 10/24/2024 CMP(C OMPRE HENSI VE METAB OLIC PANEL ) sodium 138 mmol/ L 133-14 6 Not Available [facility] (Lab) [address] [facility], [place], [address], 11/03/2024 21:54:01 10/25/19 25 10/24/2024 CMP(C OMPRE HENSI VE METAB OLIC PANEL ) potassium 4.0 mmol/ L 3.5-5. 1 Not Available [facility] (Lab) [address] [facility], [place], [address], 11/03/2024 21:54:01 10/25/19 25 10/24/2024 CMP(C OMPRE HENSI VE METAB OLIC PANEL ) chloride 103 mmol/ L 98-107 Not Available [facility] (Lab) [address], [place], [address], 11/03/2024 21:54:01 10/25/19 25 10/24/2024 CMP(C OMPRE HENSI VE METAB OLIC PANEL ) carbon dioxide 26 mmol/ L 21-31 Not Available [facility] (Lab) [address] [facility], [place], [address], 11/03/2024 21:54:01 10/25/19 25 10/24/2024 CMP(C OMPRE HENSI VE METAB OLIC PANEL ) anion gap 9 mmol/ L 4-13 Not Available [facility] (Lab) [address] [facility], [place], [address], 11/03/2024 21:54:01 10/25/19 25 10/24/2024 CMP(C OMPRE HENSI VE METAB OLIC PANEL ) blood urea nitrogen 13 mg/dL 7-25 Not Available [facility] (Lab) [address] [facility], [place], [address], 11/03/2024 21:54:01 10/25/19 25 10/24/2024 CMP(C OMPRE HENSI VE METAB OLIC PANEL ) creatinine 0.78 mg/dL 0.60-1 .30 Not Available [facility] (Lab) [address] [facility], [place], [address], 11/03/2024 21:54:01 10/25/19 25 10/24/2024 CMP(C OMPRE HENSI VE METAB OLIC PANEL ) egfrcr (CKD-epi 2020) >90 mL/mi n/1.7 3_m2 >=60 Not Available [facility] (Lab) [address] [facility], [place], [address], 11/03/2024 21:54:01 10/25/19 25 10/24/2024 CMP(C OMPRE HENSI VE METAB OLIC PANEL ) calcium 9.5 mg/dL 8.3-10 .5 Not Available [facility] (Lab) [address] [facility], [place], [address], 11/03/2024 21:54:01 10/25/19 25 10/24/2024 CMP(C OMPRE HENSI VE METAB OLIC PANEL ) glucose 83 mg/dL 70-100 Not Available [facility] (Lab) [address] [facility], [place], [address], 11/03/2024 21:54:01 10/25/1910/24/2024 CMP(C OMPRE HENSI VE METAB OLIC PANEL ) protein, total 7.1 g/dL 6.4-8. 3 Not Available [facility] (Lab) [address] [facility], [place], [address], 11/03/2024 21:54:01 10/25/19 25 10/24/2024 CMP(C OMPRE HENSI VE METAB OLIC PANEL ) albumin 4.5 g/dL 3.5-5. 0 Not Available [facility] (Lab) [address] [facility], [place], [address], 11/03/2024 21:54:01 10/25/19 25 10/24/2024 CMP(C OMPRE HENSI VE METAB OLIC PANEL ) ALT 12 units /L 9-43 Not Available [facility] (Lab) [address] [facility], [place], [address], 11/03/2024 21:54:01 10/25/19 25 10/24/2024 CMP(C OMPRE HENSI VE METAB OLIC PANEL ) alkaline phosphatase 79 units /L 34-104 Not Available [facility] (Lab) [address] [facility], [place], [address], 11/03/2024 21:54:01 10/25/19 25 10/24/2024 CMP(C OMPRE HENSI VE METAB OLIC PANEL ) AST 13 units /L 13-39 Not Available [facility] (Lab) [address] [facility], [place], [address], 11/03/2024 21:54:01 10/25/19 25 10/24/2024 CMP(C OMPRE HENSI VE METAB OLIC PANEL ) bilirubin, total 0.3 mg/dL 0.2-1. 2 Not Available [facility] (Lab) [address] [facility], [place], [address], 11/03/2024 21:54:01 10/25/19 25 10/24/2024 TSH, REFLE X FREE T4 TSH 1.85 uIU/m L 0.30-5 .33 Not Available [facility] (Lab) [address] [place], [address], 11/03/2024 21:54:02 10/25/1910/24/2024 ESTRA DIOL estradiol 304.0 pg/mL This assay was perfo rmed using [employer] ratio n reage nts and test kits. Value s obtai hetal with other assay metho ds or kits canno t be used [facility] . Femal e Estra diol Range s: Folli cular phase 12.4- 233 pg/mL Ovula tion phase 41.0- 398 pg/mL Lutea l phase 22.3- 341 pg/mL Postm enopa usal <5-13 8 pg/mL Healt hy Pregn ant Women 1st Trime ster 154-3 243 pg/mL 2nd Trime ster 1561- 65559 pg/mL 3rd Trime ster 8525- >3000 0 pg/mL Not Available [facility] (Lab) [address] [facility], [place], [address], 11/03/2024 21:54:02 10/25/1910/24/2024 PROGE STERO NE progesterone 3.10 NG/mL This assay was perfo rmed using [employer] ratio n reage nts and test kits. Value s obtai hetal with other assay metho ds or kits canno t be used [facility] . Femal e Proge stero ne Range s: Folli cular phase 0.06- 0.89 ng/mL Ovula tion phase 0.12- 12.00 ng/mL Lutea l phase 1.83- 23.90 ng/mL Postm enopa usal <0.05 -0.13 ng/mL Healt hy Pregn ant Women 1st Trime ster 11.0- 44.30 2nd Trime ster 25.40 -83.3 0 3rd Trime ster 58.70 -214. 00 Not Available [facility] (Lab) [address] [place], [address], 11/03/2024 21:54:02 10/25/1910/24/2024 PROLA CTIN prolactin, total 27.70 NG/mL 4.79-2 3.30 high This assay was perfo rmed using [employer] ratio n reage nts and test kits. Value s obtai hetal with other assay metho ds or kits canno t be used inter [facility] . Not Available [facility] (Lab) [address] [facility], [place], [address], 11/03/2024 21:54:03 10/25/1910/24/2024 LH (LUTE NIZIN G HORMO NE) LH 8.1 mIU/m L This assay was perfo rmed using [employer] reage nts and test kits. Value s obtai hetal with other assay metho ds or kits canno t be used inter [facility] . Femal es Mid-F ollic ular: 2.4-1 2.6 mIU/m L Mid-C ycle: 14.0- 95.6 mIU/m L Mid-L uteal : 1.0-1 1.4 mIU/m L Postm enopa use: 7.7-5 8.5 mIU/m L Not Available [facility] (Lab) [address] [facility], [place], [address], 11/03/2024 21:54:03 10/25/1910/24/2024 FSH FSH 2.2 mIU/m L This assay was perfo rmed using [employer] reage nts and test kits. Value s obtai hetal with other assay metho ds or kits canno t be used inter [facility] . Femal es Folli cular : 3.5-1 2.5 mIU/m L Ovula tion: 4.7-2 1.5 mIU/m L Lutea l: 1.7-7 .7 mIU/m L Postm enopa use: 25.8- 134.8 mIU/m L Not Available [facility] (Lab) [address] [place], [address], 11/03/2024 21:54:03 10/25/1910/24/2024 HUMAN SEX HORMO NE MARCUS NG GLOBU CHIN sex hormone binding globulin 62.6 nmole s/L 18.2-1 35.5 Not Available [facility] (Lab) [address] [place], [address], 11/03/2024 21:54:03 10/25/19 25 10/24/2024 HEMOG LOBIN A1C hemoglobin A1C 5.2 % [...] >8.0% Actio n sugge sted Not Available [facility] (Lab) [address] [place], [address], 11/03/2024 21:54:04 10/25/1910/24/2024 IMAGE GUIDE D PAP AND HPV REGAR DLESS image guided Pap, HPV regardless of Pap result SEE RESULT S BELOW CASE REPOR T: Cytol ogy Gynec ologi nora Repor t Case: [id number] Autho dev g Provi daria: Irma Weathers, FLORENCIA Colle cted: 10/24 1516 Order ing Locat ion: [place] [facility] Recei quentin: 10/25 0936 First Scree n: Jhonny Patel, CT Speci men: Scree jon Pap - Image d, Cervi x STATE [...] . Elect patrick marino d by Jhonny Patel CT on 2024 at 1423 CDT ----- [...] Neopl dena (if appli cable ): Signi nelly t Clini nora Findi ngs: Other Histo [...] is recom kayla d, as clini elaine warrrhea nted. Not Available [facility] (Lab) [address] [facility], [place], [address], 11/03/2024 21:54:04 10/25/19 25 10/24/2024 CT/GC AND TRICH OMONA S VAGIN EFE (RRNA ), THINP REP VIAL CT/GC and trichomonas vaginalis (rrna), thinprep SEE RESULT S BELOW negati ve CHLAM YDIA TRACH OMATI S, PCR: Negat jerel NEISS ERIA GONOR RHOEA E, PCR: Negat jerel TRICH OMONA S VAGIN EFE RIBOS OMAL RNA (RRNA ): Negat jerel Not Available [facility] (Lab) [address] [facility], [place], [address], 11/03/2024 21:54:04 10/25/1910/24/2024 TESTO STERO NE, FREE( DIALY SIS) AND TOTAL (LC/M S/MS) testosterone , total 48 NG/dL 2-45 high For addit ional infor sadaf avila e refer to http: //payton lopez.que stdia gnost ics.c om/fa q/ Total Testo stero neLCM [facility] Q165 (This link is being provi ded for infor angelo smith/ educa bobbi l purpo ses only. ) This test was devel oped and its jordan tical perfo rmanc e fausto cteri stics have been deter mined by [facility]ULEMA Lord. It has not been clear ed or appro quentin by the U.S. Food and Drug Admin istra tion. This assay has been valid ated pursu ant to the CLIA regul ation s and is used for clini nora purpo ses. Not Available [facility] (Lab) [address] [place], [address], 11/03/2024 21:54:05 10/25/1910/24/2024 TESTO STERO NE, FREE( DIALY SIS) AND TOTAL (LC/M S/MS) testosterone , free 4.2 pg/mL 0.1-6. 4 This test was devel oped and its jordan tical perfo rmanc e fausto cteri stics have been deter mined by [employer] Srinivasan Jeffery [place], [place]. It has not been clear ed or appro quentin by the U.S. Food and Drug Admin istra tion. This assay has been valid ated pursu ant to the CLIA regul ation s and is used for clini nora purpo ses. Perfo rming Organ izati on Infor matio n: Site ID: [id number] Name: Molly Jeffery [facility] Addre ss: [id number] [place], [place] Direc tor: Jenifer Anguiano MD PhD Not Available [facility] (Lab) [address] [facility], [place], [address], 11/03/2024 21:54:05 10/25/1910/24/2024 17-OH PROGE STERO NE [...] have been deter mined by [facility]. It has not been clear ed or appro quentin by the FDA. This assay has been valid ated pursu ant to the CLIA regul ation s and is used for clini nora purpo ses. Perfo rming Organ izati on Infor matio n: Site ID: EZ Name: [facility]/Amanuel dc [facility] Derek Ngo trano , Addre ss: [id number] [place] [address] Direc tor: Maria Del Carmen canela MD,Ph D,ERICK Not Available [facility] (Lab) [address] [facility], [place], [address], 11/03/2024 21:54:05 11/01/1910/31/2024 US, pelvi s No observ ation record ed. [email or web address] [facility] [address], [place], [address], 10/31/2024 17:27:25 11/01/19 25 10/31/2024 US, trans vagin al No observ ation record ed. [email or web address] [facility] [address], [place], [address], 10/31/2024 17:27:34 11/01/19 25 10/31/2024 US, pelvi s No observ ation record ed. [email or web address] Tegan [address], [place], [address], 11/08/2024 10:46:41 Result Notes None recorded. Procedures Surgical History Date Name Laterality Status Provider Name and Address Organization Details Recorded Time 10/24/2024 Date of Last Pap Smear completed Letitia Zaragoza [facility] 11/28/2024 15:15:33 Imaging Results None recorded. Procedure Notes None recorded. Medical Equipment None Reported. Allergies Allergen ID Allergen Name Allergen Category Reaction Reaction Severity Criticality Documentation Date Start Date Code Code System Note Provider Name and Address Organization Details Recorded Time 59944 Adhesive agent (substanc e) environme nt,medica tion rash Not available low 01/14/20252021 92506 0007 SNOMED Not Available josefa - External [...] active Not Available Not Available Not Avai lable escitalopra m 10 mg tablet TAKE 1 [...] Updated DateTime 10/24/2024 162.56 cm 48.2 kg/m2 993257.46 g 118/70 mm[Hg] Tawny Calix [facility] 10/24/2024 15:25:17 Date Recorded Body height Body mass index (BMI) Body weight Systolic And Diastolic Provider Name and Address Organization Details Last Updated DateTime 11/07/2024 162.56 cm 47 kg/m2 976088.31 g 125/83 mm[Hg] [facility] 11/07/2024 15:18:23 Date Recorded Body height Body mass index (BMI) Body weight Systolic And Diastolic Provider Name and Address Organization Details Last Updated DateTime 11/28/2024 162.56 cm 46 kg/m2 635355.76 g 121/82 mm[Hg] [facility] 11/28/2024 15:15:01 Date Recorded Body height Body mass index (BMI) Body weight Systolic And Diastolic Provider Name and Address Organization Details Last Updated DateTime 12/04/2024 162.56 cm 45.7 kg/m2 204699.57 g 131/83 mm[Hg] [facility] 12/04/2024 17:14:20 Social History Question Answer Notes LastModified by Organizat ion Details LastModified Time Tobacco Smoking Status Never Smoker Tawny Calix [facility] 10/24/2024 15:30:42 Do You Have An Advance Directive? No [email or web address] Information not available 10/24/2024 Are You Blind Or Do You Have Difficulty Seeing? Yes Glasses [email or web address] Information not available 10/24/2024 In The 14 Days Before Symptom Onset, Have You Had Close Contact With A Laboratory-confir med COVID-19 While That Case Was Ill? No [email or web address] Information not available 10/24/2024 In The 14 Days Before Symptom Onset, Have You Had Close Contact With A Person Who Is Under Investigation For COVID-19 While That Person Was Ill? No [email or web address] Information not available 10/24/2024 Have You Been To An Area Known To Be High Risk For COVID-19? No [email or web address] Information not available 10/24/2024 Are You Deaf Or Do You Have Serious Difficulty Hearing? No Information not available 10/24/2024 What Type Of Diet Are You Following? REGULAR [email or web address] Information not available 10/24/2024 What Is The Highest Grade Or Level Of School You Have Completed Or The Highest Degree You Have Received? [id number] [email or web address] Information not available 10/24/2024 Do You Use Your Seat Belt Or Car Seat Routinely? No Information not available 10/24/2024 Are You Sexually Active? No [email or web address] Information not available 10/24/2024 Do You Have Smoke And Carbon Monoxide Detectors In Your Home? Yes [email or web address] Information not available 10/24/2024 Has Tobacco Cessation Counseling Been Provided? No [email or web address] Information not available 10/24/2024 Do You Have Difficulty Walking Or Climbing Stairs? Yes Stairs, Knee Information not available 10/24/2024 Sex: Unknown Functional Status Question Answer Note LastModified by Organizat ion Details LastModified Time Do you use any illicit or recreational drugs? No [email or web address] Information not available 10/24/2024 Do you or have you ever used any other forms of tobacco or nicotine? No [email or web address] Information not available 10/24/2024 Are you currently employed? Yes Information not available 10/24/2024 Are you able to walk independently without assistance or assistive devices? YESWOREST [email or web address] Information not available 10/24/2024 Are you able to care for yourself independently? Yes Information not available 10/24/2024 Do you have difficulty dressing, bathing, grooming, or toileting? No [email or web address] Information not available 10/24/2024 Mental Status Question Answer Note LastModified by Organization D etails LastModified Time Do you feel stressed (tense, restless, nervous, or anxious, or unable to sleep at night)? [id number] Information not available 10/24/2024 Family History Nothing [...] ICD10 Code Diagnosis IMO Codes Diagnosis Note [id number] BRUCE Del Cid [facility] [address] [address] 10/24/2024 15:05:40 10/24/2024 17:13:13 Gynecologic examination [id number] Z01.020 [id number] WWEBC - declinedPa p - done todaySTI [...] consult advised. Questions answered. Pain in pelvis 56049772 R10.2 48273 This patient is a 34-year-ol d female [...] pelvic u/s orderedSTI testing doneUPT declined Acne [id number] L70.9 [id number] Female hirsutism 1931296 9 L68.0 38685 labs orderedwil l f/u to review labs and u/s Time spent in visit is a total of 40 mins with at least 50% of visit consisting of counseling and review of plan of care. Venereal d isease screening [id number] Z11.3 31288 [id number] Benjamin Royal MD [facility] [address],[facility] [place] [address] 10/31/2024 15:26:11 10/31/2024 16:06:51 Dysmenorrhea [id number] N94.6 R10.2 L68.0 56873 [id number] BRUCE Del Cid [facility] [address],[facility] [place] [address] 11/07/2024 14:57:34 11/07/2024 16:30:42 Polycystic ovary syndrome [id number] E28.2 036769 Reviewed updated labs and pelvic u/selevate d testostero ne and slightly elevated prolactin, 3cm ovarian cyst on u/sdiscuss ed management options for Hirsutism/ PCOS/acne/ cyst prevention Opts to start OCP and spironolac tone, rx sent, r/b/a reviewedRT C for med check in 4 months Repeat prolactin level when fasting Discussed all control options in great detail. Pt would like to start ocp. She is aware of the risks and benefits. She does not have any medical condition that is contraindi cated with the use of estrogen containing control. Pt will start her pills on the first day following the start of her period. She is aware it is not effective for control the first month. She is also aware of the importance of taking at the same time every day. Encouraged use of condoms as the pill does not protect against STI's. Time spent in visit is a total of 30 mins with at least 50% of visit consisting of counseling and review of plan of care. Hirsutism [id number] L68. 0 49627 Acne 22464104 L70.9 102407609 Pain in pelvis 35177294 R10.20 80137 [id number] BRUCE Del Cid [facility] [address] [address] 11/28/2024 14:50:26 11/29/2024 09:41:13 Polycystic ovary syndrome [id number] E28.2 959007 Stopped OCP d/t negative mood changes. Precaution s discussed, if suicidal thoughts 911/ED immediatel y. Continue f/u with psychiatry Alternativ e hormonal contracept ion options discussed, declined at this timewill continue spironolac tone, can increase dose at f/u appointmen t if tolerateds he is aware of the need to prevent while on spironolac tone d/t risk of defects Dysmenorrhea [id number] N 94.6 14771 declines hormonal contracept ion at this time d/t neg mood changespos sible endometrio sis based on longevity/ severity of symptoms, int in discussing surgical management options. Scheduled for consult with Dr. Royal Time spent in visit is a total of 30 mins with at least 50% of visit consisting of counseling and review of plan of care. Hirsutism [id number] L68. 0 [id number] Benjamin Royal MD [facility] [address] [address] 12/04/2024 16:41:10 12/05/2024 10:09:23 Pain in pelvis 90856215 R10.20 754455 this patient is a 34-year-ol d female with pelvic pain. It is a right-side d pain. It starts in her right deep pelvis and radiates into her lower lumbar area on the right. It is intermitte nt. It lasts days. It occurs leading up to her menses. began when she was very young. When she 1st started menstruati ng she had pain. It is the same pain but worse. She has pain with intercours e. This pain affects her quality of life and activities of daily living. She has failed medical treatments . She has failed oral contracept jerel pills, Mirena IUD, Depo-Prove ra. She would like diagnostic laparoscop y. We agreed to proceed with diagnostic laparoscop y. I spent over 30 minutes on the patient's care in total. Procedure be performed roboticall y. Likely a significan t endometrio sis case. The patient understand s the procedure. The procedure was described to the patient in great detail. the patient also understand s the risks. The risks were also explained in detail. She understand s that injuries May occur during surgery. She understand s these injuries can result in hospitaliz ation, more surgery, and severe illness. She understand s there is risk of hemorrhage and infection. Health Concerns Section Related Observation LastModified by Organization Detai ls LastModified Time None Recorded Concern Status LastModified by Organization Details LastModified Time None Recorded Advance Directives Directive N: Payers Insurance Date Sequence Insurance Name Policy Number Policy Sanchez Covered Member ID Sanchez Member ID Guarantor Name 01/13/2025 1 [facility] [id number] [facility] [id number] [facility] Notes Date Note Type Note Provider Name [...] treatments BRUCE Del Cid [address], [place], [address], [facility] 10/24/2024 17:02:42 5 text/html 34yoHere today for results f/u Previously diagnosed with PCOSHas been experiencing bilateral lower pelvic pain on and off for the past 3+ months. Comes and goes. Worse leading up to and on her periods. Not SA x 4-5 yrs.Unwanted hair growth on face/chin/neck/chestacne not resolving with OTC treatments BRUCE Del Cid [address], [place], [address], [facility] 11/07/2024 16:26:11 5 text/html 34yoHere today for medication follow-up. Started on OCP and spironolactone for management of PCOS/hirsutism. Stopped OCP after 10 days d/t neg mood changes. Worsening depressive symptoms and suicidal thoughts. No longer experiencing suicidal thoughts, feeling well since stopping the OCP. Saw psychiatrist last week. Periods are heavy/painful. Lasting about 5 days. Changing pads every 1-2 hours on the first 2-3 days. Significant cramping, ibuprofen does not help. Random pelvic pain throughout the month, often interferes with daily activities. Pain with IC. Fam h/o endometriosis BRUCE Del Cid [address], [place], [address], [facility] 11/29/2024 09:38:25 5 text/html this patient is a 34-year-old female with pelvic pain. It is a right-sided pain. It starts in her right deep pelvis and radiates into her lower lumbar area on the right. It is intermittent. It lasts days. It occurs leading up to her menses. began when she was very young. When she 1st started menstruating she had pain. It is the same pain but worse. She has pain with intercourse. This pain affects her quality of life and activities of daily living. She has failed medical treatments. She has failed oral contraceptive pills, Mirena IUD, Depo-Provera. She would like diagnostic laparoscopy. We agreed to proceed with diagnostic laparoscopy. I spent over 30 minutes on the patient's care in total. Procedure be performed robotically. Likely a significant endometriosis case. The patient understands the procedure. The procedure was described to the patient in great detail. the patient also understands the risks. The risks were also explained in detail. She understands that injuries May occur during surgery. She understands these injuries can result in hospitalization, more surgery, and severe illness. She understands there is risk of hemorrhage and infection. Benjamin Royal MD [address], [place], [address], [place] [facility] 12/04/2024 18:48:14 OBGyn Episode No OBEpisode recorded.
--- OUTSIDE RECORDS SUMMARY | 2025-01-14 03:35 | XMS_ITS | Continuity of Care Document ---
Author Organization [facility] [place] Address [address] [place] [address] [place] [address] Assessment No assessment recorded. Plan of Treatment Reminders Order Date Submit Date Provider Last Modified By Organization Details Last Modified Time Details Appointments SURG Diagnosti c Lap 2024 10:30A Richie ROYAL MD Not available Not available Not available SURG POST OP 2024 01:30P Richie ROYAL MD Not available Not available Not available Lab None recorded. Referral None recorded. Procedures None recorded. Surgeries None recorded. Imaging US, pelvis 2024 025 [email or web address] [facility], [address], [place], [address], 10/31/2024 18:25:28 US, transvagi nal 2024 025 [email or web address] [facility], [address], [place], [address], 10/31/2024 18:25:28 Medication Orders None recorded. Patient TargetsNo targets [...] [facility] (Lab) [address] [facility], [place], [address], 11/03/2024 21:54:01 10/25/19 25 10/24/2024 CMP(C OMPRE HENSI VE METAB OLIC PANEL ) sodium 138 mmol/ L 133-14 6 Not Available [facility] (Lab) [address], [place], [address], 11/03/2024 21:54:01 10/25/19 25 10/24/2024 CMP(C OMPRE HENSI VE METAB OLIC PANEL ) potassium 4.0 mmol/ L 3.5-5. 1 Not Available [facility] (Lab) [address] [facility], [place], [address], 11/03/2024 21:54:01 10/25/19 25 10/24/2024 CMP(C OMPRE HENSI VE METAB OLIC PANEL ) chloride 103 mmol/ L 98-107 Not Available [facility] (Lab) [address] [facility], [place], [address], 11/03/2024 21:54:01 10/25/19 25 10/24/2024 CMP(C OMPRE HENSI VE METAB OLIC PANEL ) carbon dioxide 26 mmol/ L 21-31 Not Available [facility] (Lab) [address], [place], [address], 11/03/2024 21:54:01 10/25/19 25 10/24/2024 CMP(C OMPRE HENSI VE METAB OLIC PANEL ) anion gap 9 mmol/ L 4-13 Not Available [facility] (Lab) [address] [facility], [place], [address], 11/03/2024 21:54:01 10/25/19 25 10/24/2024 CMP(C OMPRE HENSI VE METAB OLIC PANEL ) blood urea nitrogen 13 mg/dL 7-25 Not Available [facility] (Lab) [address], [place], [address], 11/03/2024 21:54:01 10/25/1910/24/2024 CMP(C OMPRE HENSI VE METAB OLIC PANEL ) creatinine 0.78 mg/dL 0.60-1 .30 Not Available [facility] (Lab) [address], [place], [address], 11/03/2024 21:54:01 10/25/1910/24/2024 CMP(C OMPRE HENSI VE METAB OLIC PANEL ) egfrcr (CKD-epi 2020) >90 mL/mi n/1.7 3_m2 >=60 Not Available [facility] (Lab) [address] [facility], [place], [address], 11/03/2024 21:54:01 10/25/1910/24/2024 CMP(C OMPRE HENSI VE METAB OLIC PANEL ) calcium 9.5 mg/dL 8.3-10 .5 Not Available [facility] (Lab) [address] [facility], [place], [address], 11/03/2024 21:54:01 10/25/1910/24/2024 CMP(C OMPRE HENSI VE METAB OLIC PANEL ) glucose 83 mg/dL 70-100 Not Available [facility] (Lab) [address] [facility] [address], [place], [address], 11/03/2024 21:54:01 10/25/1910/24/2024 CMP(C OMPRE HENSI VE METAB OLIC PANEL ) protein, total 7.1 g/dL 6.4-8. 3 Not Available [facility] (Lab) [address], [place], [address], 11/03/2024 21:54:01 10/25/1910/24/2024 CMP(C OMPRE HENSI VE METAB OLIC PANEL ) albumin 4.5 g/dL 3.5-5. 0 Not Available [facility] (Lab) [address] [facility], [place], [address], 11/03/2024 21:54:01 10/25/1910/24/2024 CMP(C OMPRE HENSI VE METAB OLIC PANEL ) ALT 12 units /L 9-43 Not Available [facility] (Lab) [address] [facility], [place], [address], 11/03/2024 21:54:01 10/25/1910/24/2024 CMP(C OMPRE HENSI VE METAB OLIC PANEL ) alkaline phosphatase 79 units /L 34-104 Not Available [facility] (Lab) [address], [place], [address], 11/03/2024 21:54:01 10/25/19 25 10/24/2024 CMP(C OMPRE HENSI VE METAB OLIC PANEL ) AST 13 units /L 13-39 Not Available [facility] (Lab) [address], [place], [address], 11/03/2024 21:54:01 10/25/1910/24/2024 CMP(C OMPRE HENSI VE METAB OLIC PANEL ) bilirubin, total 0.3 mg/dL 0.2-1. 2 Not Available [facility] (Lab) [address] [facility] [address], [place], [address], 11/03/2024 21:54:01 10/25/1910/24/2024 TSH, REFLE X FREE T4 TSH 1.85 uIU/m L 0.30-5 .33 Not Available [facility] (Lab) [address], [place], [address], 11/03/2024 21:54:02 10/25/1910/24/2024 ESTRA DIOL estradiol 304.0 pg/mL This assay was perfo rmed using [employer] ratio n reage nts and test kits. Value s obtai hetal with other assay metho ds or kits canno t be used inter [facility] . Femal e Estra diol Range s: Folli cular phase 12.4- 233 pg/mL Ovula tion phase 41.0- 398 pg/mL Lutea l phase 22.3- 341 pg/mL Postm enopa usal <5-13 8 pg/mL Healt hy Pregn ant Women 1st Trime ster 154-3 243 pg/mL 2nd Trime ster 1561- 40529 pg/mL 3rd Trime ster 8525- >3000 0 pg/mL Not Available [facility] (Lab) [address] [place], [address], 11/03/2024 21:54:02 10/25/1910/24/2024 PROGE STERO NE progesterone 3.10 NG/mL This assay was perfo rmed using [employer] reage nts and test kits. Value s obtai hetal with other assay metho ds or kits canno t be used inter [facility] . Femal e Proge stero ne Range [...] [facility] (Lab) [address] [place], [address], 11/03/2024 21:54:02 10/25/1910/24/2024 PROLA CTIN prolactin, total 27.70 NG/mL 4.79-2 3.30 high This assay was perfo rmed using [employer] reage nts and test kits. Value s obtai hetal with other assay metho ds or kits canno t be used inter [facility] . Not Available [facility] (Lab) [address] [place], [address], 11/03/2024 21:54:03 10/25/1910/24/2024 LH (LUTE NIZIN G HORMO NE) LH 8.1 mIU/m L This assay was perfo rmed using [employer] reage nts and test kits. Value s obtai hetal with other assay metho ds or kits canno t be used inter [facility] eay . Femal es Mid-F ollic ular: 2.4-1 2.6 mIU/m L Mid-C ycle: 14.0- 95.6 mIU/m L Mid-L uteal : 1.0-1 1.4 mIU/m L Postm enopa use: 7.7-5 8.5 mIU/m L Not Available [facility] (Lab) [address] [facility], [place], [address], 11/03/2024 21:54:03 10/25/1910/24/2024 FSH FSH 2.2 mIU/m L This assay was perfo rmed using [employer] ratio n reage nts and test kits. Value s obtai hetal with other assay metho ds or kits canno t be used inter [facility] [place] . Femal es Folli cular : 3.5-1 2.5 mIU/m L Ovula tion: 4.7-2 1.5 mIU/m L Lutea l: 1.7-7 .7 mIU/m L Postm enopa use: 25.8- 134.8 mIU/m L Not Available [facility] (Lab) [address] [facility], [place], [address], 11/03/2024 21:54:03 10/25/19 25 10/24/2024 HUMAN SEX HORMO NE MARCUS NG GLOBU CHIN sex hormone binding globulin 62.6 nmole s/L 18.2-1 35.5 Not Available [facility] (Lab) [address] [place], [address], 11/03/2024 21:54:03 10/25/19 25 10/24/2024 HEMOG LOBIN A1C hemoglobin A1C 5.2 % 4.0-5. 6 The Ameri can [employer] i[employer] n recom mends that a prima ry goal of thera py siva d be a HBA1C of < 7% [...] [facility] (Lab) [address] [facility], [place], [address], 11/03/2024 21:54:04 10/25/19 25 10/24/2024 IMAGE GUIDE D PAP AND HPV REGAR DLESS image guided Pap, HPV regardless of Pap result SEE RESULT S BELOW CASE REPOR T: Cytol ogy Gynec ologi nora Repor t Case: [id number] Autho dev ferris Provi daria: Irma Weathers, FLORENCIA Colle cted: 10/24 1516 Order ing Locat ion: [place] Patho log[facility] Recei quentin: 10/25 0936 First Scree n: Jhonny Patel, CT Speci men: Terry webb Pap - Image d, Cervi x STATE MENT OF ADEQU ACY: Satis facto ry for evalu ation Trans forma tion zone compo nent prese nt ----- ----- ----- ----- ----- ----- ----- ----- ----- ----- ----- ----- ----- ----- ----- ----- ----- ---- FINAL DIAGN OSIS: Negat jerel for Intra epith elial Lesio n or Trinity campo (NIL) . Elect patrick [...] is recom kayla d, as clini elaine nascimento nted. Not Available [facility] (Lab) [address], [place], [address], 11/03/2024 21:54:04 10/25/1910/24/2024 CT/GC AND TRICH OMONA S VAGIN EFE (RRNA ), THINP REP VIAL CT/GC and trichomonas vaginalis (rrna), thinprep SEE RESULT S BELOW negati ve CHLAM YDIA TRACH OMATI S, PCR: Negat jerel NEISS ERIA GONOR RHOEA E, PCR: Negat jerel TRICH OMONA S VAGIN EFE RIBOS OMAL RNA (RRNA ): Negat jerel Not Available [facility] (Lab) [address] [facility], [place], [address], 11/03/2024 21:54:04 10/25/1910/24/2024 TESTO STERO NE, FREE( DIALY SIS) AND TOTAL (LC/M S/MS) testosterone , total 48 NG/dL 2-45 high For addit ional infor sadaf avila e refer to http: //[facility] mitzi lopez.que stdia gnost ics.c om/fa q/ Total Testo stero neLCM SMSFA Q165 (This link is being provi ded for infor angelo smith/ educa bobbi l purpo ses only. ) This test was devel oped and its jordan tical perfo rmanc e fausto cteri stics have been deter mined by [facility] katerine hamilton [place], [place]. It has not been clear ed or appro quentin by the U.S. Food and Drug Admin istra tion. This assay has been valid ated pursu ant to the CLIA regul ation s and is used for clini nora purpo ses. Not Available [facility] (Lab) [address], [place], [address], 11/03/2024 21:54:05 10/25/1910/24/2024 TESTO STERO NE, FREE( DIALY SIS) AND TOTAL (LC/M S/MS) testosterone , free 4.2 pg/mL 0.1-6. 4 This test was devel oped and its jordan tical perfo rmanc e fausto cteri stics have been deter mined by [facility] [place]. It has not been clear ed or appro quentin by the U.S. Food and Drug Admin istra tion. This assay has been valid ated pursu ant to the CLIA regul ation s and is used for clini nora purpo ses. Perfo rming Organ izati on Infor [facility] n: Site ID: AMD Name: [employer] ostic s [facility] Addre ss: [id number] [facility] [employer] [place], [place] Direc tor: Jenifer Anguiano MD PhD Not Available [facility] (Lab) [address], [place], [address], 11/03/2024 21:54:05 10/25/1910/24/2024 17-OH PROGE STERO NE [...] stics have been deter mined by [facility] [employer] ostic s. It has not been clear ed or appro quentin by the FDA. This assay has been valid ated pursu ant to the CLIA regul ation s and is used for clini nora purpo ses. Perfo rming Organ izati on Infor mat n: Site ID: EZ Name: [facility]/Amanuel dc C-S an [place] , Addre ss: [id number] [address] [place] [address] Direc tor: Maria Del Carmen canela MD,Ph D,ERICK Not Available [facility] (Lab) [address], [place], [address], 11/03/2024 21:54:05 11/01/19 25 10/31/2024 US, pelvi s No observ ation record ed. [email or web address] [facility] [address], [place], [address], 10/31/2024 17:27:25 11/01/19 25 10/31/2024 US, trans vagin al No observ ation record ed. [email or web address] [facility] [address], [place], [address], 10/31/2024 17:27:34 11/01/19 25 10/31/2024 US, pelvi s No observ ation record ed. jessica Javed [address] [place] [address], [place], [address], 11/08/2024 10:46:41 Result Notes None recorded. Procedures Surgical History Date Name Laterality Status Provider Name and Address Organization Details Recorded Time 10/24/2024 Date of Last Pap Smear [facility] 11/28/2024 15:15:33 Imaging Results None recorded. Procedure Notes None recorded. Medical Equipment None Reported. Allergies Allergen ID Allergen Name Allergen Category Reaction Reaction Severity Criticality Documentation Date Start Date Code Code System Note Provider Name and Address Organization Details Recorded Time 68742 Adhesive agent (substanc e) environme nt,medica tion rash Not available low 01/14/20252021 61625 0007 SNOMED Not Available josefa - External [...] Not Available Not Available Not Available Vitals None Recorded Social History Question Answer Notes LastModified by Organizat ion Details LastModified Time Tobacco Smoking Status Never Smoker Tawny moyer, [facility] 10/24/2024 15:30:42 Do You Have An Advance Directive? No [email or web address] Information not available 10/24/2024 Are You Blind Or Do You Have Difficulty Seeing? Yes Glasses [email or web address] Information not available 10/24/2024 In The 14 Days Before Symptom Onset, Have You Had Close Contact With A Laboratory-confir [facility] COVID-19 While That Case Was Ill? No [email or web address] Information not available 10/24/2024 In The 14 Days Before Symptom Onset, Have You Had Close Contact With A Person Who Is Under Investigation For COVID-19 While That Person Was Ill? No Information not available 10/24/2024 Have You Been To An Area Known To Be High Risk For COVID-19? No [email or web address] Information not available 10/24/2024 Are You Deaf Or Do You Have Serious Difficulty Hearing? No [email or web address] Information not available 10/24/2024 What Type Of Diet Are You Following? REGULAR [email or web address] Information not available 10/24/2024 What Is The Highest Grade Or Level Of School You Have Completed Or The Highest Degree You Have Received? [id number] [email or web address] Information not available 10/24/2024 Do You Use Your Seat Belt Or Car Seat Routinely? No [email or web address] Information not available 10/24/2024 Are You Sexually Active? No Information not available 10/24/2024 Do You Have Smoke And Carbon Monoxide Detectors In Your Home? Yes [email or web address] Information not available 10/24/2024 Has Tobacco Cessation Counseling Been Provided? No [email or web address] Information not available 10/24/2024 Do You Have Difficulty Walking Or Climbing Stairs? Yes Stairs, Knee [email or web address] Information not available 10/24/2024 Sex: Unknown Functional Status Question Answer Note LastModified by Organizat ion Details LastModified Time Do you use any illicit or recreational drugs? No [email or web address] Information not available 10/24/2024 Do you or have you ever used any other forms of tobacco or nicotine? No [email or web address] Information not available 10/24/2024 Are you currently employed? Yes [email or web address] Information not available 10/24/2024 Are you able to walk independently without assistance or assistive devices? YESWOREST [email or web address] Information not available 10/24/2024 Are you able to care for yourself independently? Yes [email or web address] Information not available 10/24/2024 Do you have difficulty dressing, bathing, grooming, or toileting? No [email or web address] Information not available 10/24/2024 Mental Status Question Answer Note LastModified by Organization D etails LastModified Time Do you feel stressed (tense, restless, nervous, or anxious, or unable to sleep at night)? [id number] [email or web address] Information not available 10/24/2024 Family History Nothing Reported. Medical History Condition Response Other Y Anxiety Disorder Y Gynecological History Statement/Question Response Abnormal Pap [...] ICD10 Code Diagnosis IMO Codes Diagnosis Note [id number] BRUCE Del Cid [facility] [address] [address] 10/24/2024 15:05:40 10/24/2024 17:13:13 Gynecologic examination [id number] Z01.066 [id number] WWEBC - declinedPa p - done todaySTI [...] consult advised. Questions answered. Pain in pelvis [id number] R10.2 17662 This patient is a 34-year-ol d female [...] pelvic u/s orderedSTI testing doneUPT declined Acne [id number] L70.9 [id number] Female hirsutism 2079692 9 L68.0 99566 labs orderedwil l f/u to review labs and u/s Time spent in visit is a total of 40 mins with at least 50% of visit consisting of counseling and review of plan of care. Venereal d isease screening [id number] Z11.3 47492 [id number] Benjamin Royal MD [facility] [address] [address] 10/31/2024 15:26:11 10/31/2024 16:06:51 Dysmenorrhea [id number] N94.6 R10.2 L68.0 33282 Health Concerns Section Related Observation LastModified by Organization Detai ls LastModified Time None Recorded Concern Status LastModified by Organization Details LastModified Time None Recorded Payers Encounter Date Sequence Insurance Name Policy Number Policy Sanchez Covered Member ID Sanchez Member ID Guarantor Name 10/31/2024 1 [facility] [id number] Sofie Isaacs [id number] Sofie Isaacs OBGyn Episode No OBEpisode recorded.
--- OUTSIDE RECORDS SUMMARY | 2025-01-14 03:35 | XMS_ITS | Encounter Summary ---
Author Organization [facility] Address [address] [place] [address] Care Team Providers Care Conveyor Belt Repairer Name Role Phone Gloria Sorto NP Primary Care Provider Unav Sudhir Leroy MD Primary Care Provider [phone] [facility] Primary Care Provider + Leland Lindsay MD Unavailable [phone] Ting Bosch MD Primary Care Provider [phone] Encounter Details Date Type Department Care Team (Late st Contact Info) Description 05/10/2020 [employer] 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 Sexual Orientation unknown 01/20/2021 8: 57 PM ELECTRICAL MANUFACTURING ENGINEER COVID-19 Exposure Response Date Recorded In the [...] Rule Out 01/14/2022 01/14/2022 01/14/2022 10:36 AM ELECTRICAL MANUFACTURING ENGINEER COVID-19 Rule Out 02/17/2022 02/17/2022 02/17/2022 8:01 AM ELECTRICAL MANUFACTURING ENGINEER COVID-19 Rule Out 05/24/2022 05/24/2022 05/24/2022 5:52 PM CDT COVID-19 Rule Out 07/17/2022 07/17/2022 07/17/2022 7:02 AM CDT COVID-19 Rule Out 07/17/2022 07/17/2022 07/17/2022 1:53 PM CDT Assessment Noted Time PHQ-9 Depression Total Score: 26 020 7:27 AM CDT documented as of this encounter Care Teams Conveyor Belt Repairer Relationship Specialty Start Date End Date Gloria Sorto NP PCP - General NURSE PRACTITIONER 11/25/19 11/25/20 [place] [address] [place] [address] PCP - General FAMILY PRACTICE 11/26/20 12/28/20 Asuncion Galarza FNP- [address] [place] [address] PCP - General Nurse Practitioner Family 12/29/20 02/08/21 [place] [address] [facility]. [address] [place] [address] PCP - General FAMILY PRACTICE 02/18/21 Leland Lindsay MD [address] [facility] [address] [place] [address] Medical Oncologist HEMATOLOGY/ONCOLOGY 01/11/21 documented as of this encounter
--- OUTSIDE RECORDS SUMMARY | 2025-01-14 03:35 | XMS_ITS | Encounter Summary ---
Author Organization [facility] Address [address] [place] [address] Care Team Providers Care Corporate Financial Analyst Name Role Phone Gloria Sorto NP Primary Care Provider Unav Sudhir Leroy MD Primary Care Provider [phone] Asuncion Galarza [facility] Primary Care Provider + Leland Lindsay MD Unavailable [phone] Ting Bosch MD Primary Care Provider [phone] Encounter Details Date Type Department Care Team (Late st Contact Info) Description 09/24/2020 MyChart Message Enc [facility] [address] [address] Onur Cheng MD [address] [place] [address] RE: Question Social History Tobacco Use [...] CDT Gender Identity Female 01/20/2021 8:57 PM COPYRIGHT 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 Sexual Orientation unknown 01/20/2021 8: 57 PM COPYRIGHT EXPERT COVID-19 Exposure Response Date Recorded In the [...] Rule Out 01/14/2022 01/14/2022 01/14/2022 10:36 AM COPYRIGHT EXPERT COVID-19 Rule Out 02/17/2022 02/17/2022 02/17/2022 8:01 AM COPYRIGHT EXPERT COVID-19 Rule Out 05/24/2022 05/24/2022 05/24/2022 5:52 PM CDT COVID-19 Rule Out 07/17/2022 07/17/2022 07/17/2022 7:02 AM CDT COVID-19 Rule Out 07/17/2022 07/17/2022 07/17/2022 1:53 PM CDT Assessment Noted Time PHQ-9 Depression Total Score: 23 08/05/ 021 7:20 AM CDT documented as of this encounter Care Teams Corporate Financial Analyst Relationship Specialty Start Date End Date Gloria Sorto NP PCP - General NURSE PRACTITIONER 11/25/19 11/25/20 [place] [address] [place] [address] PCP - General FAMILY PRACTICE 11/26/20 12/28/20 Asuncion Galarza FNP-BC [address] [place] [address] PCP - General Nurse Practitioner Family 12/29/20 02/08/21 [place] [address] [address] [place] [address] PCP - General FAMILY PRACTICE 02/18/21 Leland Lindsay MD [address] [place] [address] [address] [place] [address] Medical Oncologist HEMATOLOGY/ONCOLOGY 01/11/21 documented as of this encounter
--- OUTSIDE RECORDS SUMMARY | 2025-01-14 03:35 | XMS_ITS | Encounter Summary ---
Author Organization [facility] Address [address] [place] [address] Phone Care Team Providers Care Director Of Database Marketing Name Role Phone Leland Lindsay MD Primary Care Provider [phone] Reason for Visit * Reason Comments Medication Refill Encounter Details Date Type Department Care Team (Late st Contact Info) Description 11/17/2021 Refill [facility] [address] [address] [address] Emeli Simon, REGULATOR PIN INSERTER, PROPELLANT ASSEMBLER [address] [place] [address] Medication Refill Social History Tobacco [...] documented as of this encounter Care Teams Director Of Database Marketing Relationship Specialty Start Date End Date Leland Lindsay MD PCP - General Oncology 07/21/20 documented as of this encounter
--- OUTSIDE RECORDS SUMMARY | 2025-01-14 03:35 | XMS_ITS | Encounter Summary ---
Author Organization [facility] Address [address] [place] [address] Care Team Providers Care Litigation Legal Secretary Name Role Phone Gloria Sorto NP Primary Care Provider Unav Sudhir Leroy MD Primary Care Provider [phone] Asuncion Galarza [facility] Primary Care Provider + Leland Lindsay MD Unavailable [phone] Ting Bosch MD Primary Care Provider [phone] Encounter Details Date Type Department Care Team (Late st Contact Info) Description 09/18/2020 Prep for Procedure [facility] [place] [id number] Onur Cheng MD [address] [facility] [address] [place] [id number] Social History Tobacco Use Types Packs/Day Years [...] CDT Gender Identity Female 01/20/2021 8:57 PM TONGUE CARRIER Sexual Orientation unknown 01/20/2021 8: 57 PM TONGUE CARRIER COVID-19 Exposure Response Date Recorded In the last month, have you been in contact with someone who was confirmed or suspected to have Coronavirus / COVID-19? No / Unsure 09/09/2020 7:18 AM CDT documented as of this encounter Plan of Treatment Not on file documented as of this encounter Visit Diagnoses Diagnosis Celiac disease (HHS/HCC)- Primary Celiac disease documented in this encounter Additional Health Concerns Infection Onset Date Last Indicated Resolved Time COVID-19 Rule Out 01/14/2022 01/14/2022 01/14/2022 10:36 AM TONGUE CARRIER COVID-19 Rule Out 02/17/2022 02/17/2022 02/17/2022 8:01 AM TONGUE CARRIER COVID-19 Rule Out 05/24/2022 05/24/2022 05/24/2022 5:52 PM CDT COVID-19 Rule Out 07/17/2022 07/17/2022 07/17/2022 7:02 AM CDT COVID-19 Rule Out 07/17/2022 07/17/2022 07/17/2022 1:53 PM CDT Assessment Noted Time PHQ-9 Depression Total Score: 23 08/05/ 021 7:20 AM CDT documented as of this encounter Care Teams Litigation Legal Secretary Relationship Specialty Start Date End Date Gloria Sorto NP PCP - General NURSE PRACTITIONER 11/25/19 11/25/20 [place] [address] [place] [address] PCP - General FAMILY PRACTICE 11/26/20 12/28/20 Asuncion Galarza FNP- [address] [place] [address] PCP - General Nurse Practitioner Family 12/29/20 02/08/21 [place] [address] [facility]. [address] [place] [address] PCP - General FAMILY PRACTICE 02/18/21 Leland Lindsay MD [address] [facility] [address] [place] [phone] Medical Oncologist HEMATOLOGY/ONCOLOGY 01/11/21 documented as of this encounter
--- OUTSIDE RECORDS SUMMARY | 2025-01-14 03:35 | XMS_ITS | Encounter Summary ---
Author Organization [facility] Address [address] [place] [address] Care Team Providers Care Tumblers Supervisor Name Role Phone Gloria Sorto NP Primary Care Provider Unav Sudhir Leroy MD Primary Care Provider [phone] Asuncion Galarza [facility] Primary Care Provider + Leland Lindsay MD Unavailable [phone] Ting Bosch MD Primary Care Provider [phone] Encounter Details Date Type Department Care Team (Late st Contact Info) Description 08/28/2020 MyChart Message Enc [facility] Family & Internal Medicine [address] [address] Gloria Sorto NP Other Social [...] CDT Gender Identity Female 01/20/2021 8:57 PM PHOTOENGRAVING PRINTER Sexual Orientation unknown 01/20/2021 8: 57 PM PHOTOENGRAVING PRINTER COVID-19 Exposure Response Date Recorded In the [...] Rule Out 01/14/2022 01/14/2022 01/14/2022 10:36 AM PHOTOENGRAVING PRINTER COVID-19 Rule Out 02/17/2022 02/17/2022 02/17/2022 8:01 AM PHOTOENGRAVING PRINTER COVID-19 Rule Out 05/24/2022 05/24/2022 05/24/2022 5:52 PM CDT COVID-19 Rule Out 07/17/2022 07/17/2022 07/17/2022 7:02 AM CDT COVID-19 Rule Out 07/17/2022 07/17/2022 07/17/2022 1:53 PM CDT Assessment Noted Time PHQ-9 Depression Total Score: 23 08/05/ 021 7:20 AM CDT documented as of this encounter Care Teams Tumblers Supervisor Relationship Specialty Start Date End Date Gloria Sorto NP PCP - General NURSE PRACTITIONER 11/25/19 11/25/20 [place] [address] [place] [address] PCP - General FAMILY PRACTICE 11/26/20 12/28/20 Asuncion Galarza FNP- [address] [place] [address] PCP - General Nurse Practitioner Family 12/29/20 02/08/21 [place] [address] [address] [address] PCP - General FAMILY PRACTICE 02/18/21 Leland Lindsay MD [address] [place] [phone] Medical Oncologist HEMATOLOGY/ONCOLOGY 01/11/21 documented as of this encounter
--- OUTSIDE RECORDS SUMMARY | 2025-01-14 03:35 | XMS_ITS | Encounter Summary ---
Author Organization [facility] Address [address] [place] [address] Care Team Providers Care Consolidation Accountant Name Role Phone Gloria Sorto NP Primary Care Provider Unav Sudhir Leroy MD Primary Care Provider [phone] Asuncion Galarza [facility] Primary Care Provider + Leland Lindsay MD Unavailable [phone] Ting Bosch MD Primary Care Provider [phone] Encounter Details Date Type Department Care Team (Late st Contact Info) Description 09/22/2001 Abstract [facility] Conversion , Generic Conversion, Social History Tobacco Use Types Packs/Day Years Used Date Smoking Tobacco: Never Assessed Comments Unknown Sex and Gender Information Value Date Recorded Sex Assigned at Female 06/09/2022 9:19 AM CDT Legal Sex Female 4:37 PM CDT Gender Identity Female 01/20/2021 8:57 PM 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 Sexual Orientation unknown 01/20/2021 8: 57 PM 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 documented as of this encounter Plan of Treatment Not on file documented as of this encounter Visit Diagnoses Not on filedocumented in this encounter Additional Health Concerns Infection Onset Date Last Indicated Resolved Time COVID-19 Rule Out 01/14/2022 01/14/2022 01/14/2022 10:36 AM 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 COVID-19 Rule Out 02/17/2022 02/17/2022 02/17/2022 8:01 AM 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 COVID-19 Rule Out 05/24/2022 05/24/2022 05/24/2022 5:52 PM CDT COVID-19 Rule Out 07/17/2022 07/17/2022 07/17/2022 7:02 AM CDT COVID-19 Rule Out 07/17/2022 07/17/2022 07/17/2022 1:53 PM CDT documented as of this encounter Care Teams Consolidation Accountant Relationship Specialty Start Date End Date Gloria Sorto NP PCP - General NURSE PRACTITIONER 11/25/19 11/25/20 [place] [address] [place] [address] PCP - General FAMILY PRACTICE 11/26/20 12/28/20 Asuncion Galarza [facility] [address] [place] [address] PCP - General Nurse Practitioner [facility] 12/29/20 02/08/21 [place] [address] [facility] [address] [place] [address] PCP - General FAMILY PRACTICE 02/18/21 Leland Lindsay MD [address] [place] [phone] Medical Oncologist HEMATOLOGY/ONCOLOGY 01/11/21 documented as of this encounter
--- OUTSIDE RECORDS SUMMARY | 2025-01-14 03:35 | XMS_ITS | Encounter Summary ---
Author Organization [facility] Address [address] [place] [address] Care Team Providers Care Lithopress Operator Name Role Phone Gloria Sorto NP Primary Care Provider Unav Sudhir Leroy MD Primary Care Provider [phone] Asuncion Galarza [facility] Primary Care Provider + Leland Lindsay MD Unavailable [phone] Ting Bosch MD Primary Care Provider [phone] Encounter Details Date Type Department Care Team (Late st Contact Info) Description 09/25/2020 HelpingDoc Message Enc [facility] Family & Internal Medicine [address] [address] [facility] Provider RE: FMLA Paperwork Social History Tobacco [...] CDT Gender Identity Female 01/20/2021 8:57 PM 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 Sexual Orientation unknown 01/20/2021 8: 57 PM STONE POLISHER COVID-19 Exposure Response Date Recorded In the [...] Rule Out 01/14/2022 01/14/2022 01/14/2022 10:36 AM STONE POLISHER COVID-19 Rule Out 02/17/2022 02/17/2022 02/17/2022 8:01 AM STONE POLISHER COVID-19 Rule Out 05/24/2022 05/24/2022 05/24/2022 5:52 PM CDT COVID-19 Rule Out 07/17/2022 07/17/2022 07/17/2022 7:02 AM CDT COVID-19 Rule Out 07/17/2022 07/17/2022 07/17/2022 1:53 PM CDT Assessment Noted Time PHQ-9 Depression Total Score: 23 08/05/ 021 7:20 AM CDT documented as of this encounter Care Teams Lithopress Operator Relationship Specialty Start Date End Date Gloria Sorto NP PCP - General NURSE PRACTITIONER 11/25/19 11/25/20 [place] [address] [place] [address] PCP - General FAMILY PRACTICE 11/26/20 12/28/20 [facility]uncion [facility]za [facility] [address] [place] [address] PCP - General Nurse Practitioner Family 12/29/20 02/08/21 [place] [address] [address] PCP - General FAMILY PRACTICE 02/18/21 Leland Lindsay MD [address] [place] [phone] Medical Oncologist HEMATOLOGY/ONCOLOGY 01/11/21 documented as of this encounter
--- OUTSIDE RECORDS SUMMARY | 2025-01-14 03:35 | XMS_ITS | Clinical Summary ---
Author Organization [facility] Address [address] [place] [address] Care Team Providers Care School Director Name Role Phone Leland Lindsay MD Unavailable [phone] Ting Bosch MD Primary Care Provider [phone] Allergies Active Allergy Reactions Criticality Noted Date [...] recurrent major depressive disorder, without psychotic features 07/18/2022 Weight loss 12/11/2020 Overview (01/19/2021): Added automatically from request for surgery [id number] Neck pain 07/28/2020 Assessment & Plan (07/28/2020 [...] EMG/NCV if no significant pathology Celiac disease 07/23/2020 Overview (07/23/2020): Added automatically from request for surgery [id number] Diarrhea, unspecified type 07/23/2020 Overview (07/23/2020): Added automatically from request for surgery [id number] Nausea 07/23/2020 Overview (07/23/2020): Added automatically from request for surgery [id number] Periumbilical abdominal pain 07/23/2020 Overview (07/23/2020): Added automatically from request for surgery [id number] Thrombocytosis 01/16/2020 Essential hypertension 11/26/2019 Morbid obesity [...] (12/11/2020): Added automatically from request for surgery [id number] Morbid obesity with body mas s index [...] CDT Gender Identity Female 01/20/2021 8:57 PM 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 SERVICES 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 Sexual Orientation unknown 01/20/2021 8: 57 PM INDUSTRIAL SERVICES WORKER Last Filed Vital Signs Vital Sign [...] Every 3 Years 1990 Hepatitis C 2008 HPV Vaccines (1 - 3-dose SCDM series) 2017 Annual Physical 01/11/2022 01/11/2021, 11/25/2019 COVID-19 Vaccine ( season) 2024 11/06/2020, 10/13/2020 Influenza Adult (#1) 2024 Cervical Cancer Screening Pap with HPV Testing (Age 30 to 64) Every 5 Years 01/14/2026 01/14/2021 Cervical Cancer Screening with HPV 01/14/2026 DTaP, Tdap and Td Vaccines (7 - Td or Tdap) 01/11/2031 01/11/2021, 11/24/2005, 04/09/1996, Additional history exists Hepatitis B Vaccines Completed 11/30/2000, 09/27/1996, 04/09/1996 Hepatitis A Vaccines Aged Out No long er eligible based on patient's age to complete [...] Recently Relevant to Health Maintenance Care Teams School Director Relationship Specialty [place] [address] [facility] [address] [place] [address] PCP - General FAMILY PRACTICE 02/18/21 Leland Lindsay MD [address] [place] [address] [place] [phone] Medical Oncologist HEMATOLOGY/ONCOLOGY 01/11/21
--- OUTSIDE RECORDS SUMMARY | 2025-01-14 03:36 | XMS_ITS | Encounter Summary ---
Author Organization [facility] Address [address] [place] [address] Care Team Providers Care Vector Control Specialist Name Role Phone Gloria Sorto NP Primary Care Provider Unav Sudhir Leroy MD Primary Care Provider [phone] Asuncion Galarza [facility] Primary Care Provider + Leland Lindsay MD Unavailable [phone] Ting Bosch MD Primary Care Provider [phone] Encounter Details Date Type Department Care Team (Late st Contact Info) Description 05/11/[address] [facility] [address] [place] [address] Gloria Sorto NP Follow Up/Update [...] CDT Gender Identity Female 01/20/2021 8:57 PM COOK HELPER PRESERVES Sexual Orientation unknown 01/20/2021 8: 57 PM COOK HELPER PRESERVES COVID-19 Exposure Response Date Recorded In the [...] Rule Out 01/14/2022 01/14/2022 01/14/2022 10:36 AM COOK HELPER PRESERVES COVID-19 Rule Out 02/17/2022 02/17/2022 02/17/2022 8:01 AM COOK HELPER PRESERVES COVID-19 Rule Out 05/24/2022 05/24/2022 05/24/2022 5:52 PM CDT COVID-19 Rule Out 07/17/2022 07/17/2022 07/17/2022 7:02 AM CDT COVID-19 Rule Out 07/17/2022 07/17/2022 07/17/2022 1:53 PM CDT Assessment Noted Time PHQ-9 Depression Total Score: 26 020 7:27 AM CDT documented as of this encounter Care Teams Vector Control Specialist Relationship Specialty Start Date End Date Gloria Sorto NP PCP - General NURSE PRACTITIONER 11/25/19 11/25/20 [place] [address] [place] [address] PCP - General FAMILY PRACTICE 11/26/20 12/28/20 Asuncion Galarza FNP- [address] [address] [place], [place] [id number] PCP - General Nurse Practitioner Family 12/29/20 02/08/21 [place] [address] [address] [address] PCP - General FAMILY PRACTICE 02/18/21 Leland Lindsay MD [address] [place] [phone] Medical Oncologist HEMATOLOGY/ONCOLOGY 01/11/21 documented as of this encounter
--- OUTSIDE RECORDS SUMMARY | 2025-01-14 03:36 | XMS_ITS | Continuity of Care Document ---
Author Organization [facility] [place] Address [address] [place] [address] Assessment No assessment recorded. Plan of Treatment [...] None recorded. Imaging None recorded. Medication Orders spironola ctone 50 mg tablet [address] [facility]/Pharmacy #[id number], [address], [address], 11/07/2024 15:39:56 drospiren one 3 mg-ethiny l estradiol 0.03 mg tablet [address] [facility]/Pharmacy #[id number], [address], [address], 11/28/2024 15:15:18 Patient TargetsNo targets recorded. Patient [...] 9-246 > 75 12-15 4 Not Available [facility] (Lab) [address], [place], [address], 11/03/2024 21:54:01 10/25/19 25 10/24/2024 CMP(C OMPRE HENSI VE METAB OLIC PANEL ) sodium 138 mmol/ L 133-14 6 Not Available [facility] (Lab) [address], [place], [address], 11/03/2024 21:54:01 10/25/19 25 10/24/2024 CMP(C OMPRE HENSI VE METAB OLIC PANEL ) potassium 4.0 mmol/ L 3.5-5. 1 Not Available [facility] (Lab) [address] [facility], [place], [address], 11/03/2024 21:54:01 10/25/19 25 10/24/2024 CMP(C OMPRE HENSI VE METAB OLIC PANEL ) chloride 103 mmol/ L 98-107 Not Available [facility] (Lab) [address] [facility], [place], [address], 11/03/2024 21:54:01 10/25/19 25 10/24/2024 CMP(C OMPRE HENSI VE METAB OLIC PANEL ) carbon dioxide 26 mmol/ L 21-31 Not Available [facility] (Lab) [address] [facility], [place], [address], 11/03/2024 21:54:01 10/25/19 25 10/24/2024 CMP(C OMPRE HENSI VE METAB OLIC PANEL ) anion gap 9 mmol/ L 4-13 Not Available [facility] (Lab) [address] [facility], [place], [address], 11/03/2024 21:54:01 10/25/19 25 10/24/2024 CMP(C OMPRE HENSI VE METAB OLIC PANEL ) blood urea nitrogen 13 mg/dL 7-25 Not Available [facility] (Lab) [address], [place], [address], 11/03/2024 21:54:01 10/25/1910/24/2024 CMP(C OMPRE HENSI VE METAB OLIC PANEL ) creatinine 0.78 mg/dL 0.60-1 .30 Not Available [facility] (Lab) [address] [facility], [place], [address], 11/03/2024 21:54:01 10/25/1910/24/2024 CMP(C OMPRE HENSI VE METAB OLIC PANEL ) egfrcr (CKD-epi 2020) >90 mL/mi n/1.7 3_m2 >=60 Not Available [facility] (Lab) [address] [facility], [place], [address], 11/03/2024 21:54:01 10/25/1910/24/2024 CMP(C OMPRE HENSI VE METAB OLIC PANEL ) calcium 9.5 mg/dL 8.3-10 .5 Not Available [facility] (Lab) [address] [facility] [address] [facility], [place], [address], 11/03/2024 21:54:01 10/25/1910/24/2024 CMP(C OMPRE HENSI VE METAB OLIC PANEL ) glucose 83 mg/dL 70-100 Not Available [facility] (Lab) [address] [facility], [place], [address], 11/03/2024 21:54:01 10/25/1910/24/2024 CMP(C OMPRE HENSI VE METAB OLIC PANEL ) protein, total 7.1 g/dL 6.4-8. 3 Not Available [facility] (Lab) [address] [facility], [place], [address], 11/03/2024 21:54:01 10/25/19 25 10/24/2024 CMP(C OMPRE HENSI VE METAB OLIC PANEL ) albumin 4.5 g/dL 3.5-5. 0 Not Available [facility] (Lab) [address] [facility] [address] [facility], [place], [address], 11/03/2024 21:54:01 10/25/1910/24/2024 CMP(C OMPRE HENSI VE METAB OLIC PANEL ) ALT 12 units /L 9-43 Not Available [facility] (Lab) [address] [facility], [place], [address], 11/03/2024 21:54:01 10/25/1910/24/2024 CMP(C OMPRE HENSI VE METAB OLIC PANEL ) alkaline phosphatase 79 units /L 34-104 Not Available [facility] (Lab) [address] [facility], [place], [address], 11/03/2024 21:54:01 10/25/19 25 10/24/2024 CMP(C OMPRE HENSI VE METAB OLIC PANEL ) AST 13 units /L 13-39 Not Available [facility] (Lab) [address] [facility], [place], [address], 11/03/2024 21:54:01 10/25/1910/24/2024 CMP(C OMPRE HENSI VE METAB OLIC PANEL ) bilirubin, total 0.3 mg/dL 0.2-1. 2 Not Available [facility] (Lab) [address] [facility], [place], [address], 11/03/2024 21:54:01 10/25/1910/24/2024 TSH, REFLE X FREE T4 TSH 1.85 uIU/m L 0.30-5 .33 Not Available [facility] (Lab) [address] [place], [address], 11/03/2024 21:54:02 10/25/1910/24/2024 ESTRA DIOL estradiol 304.0 pg/mL This assay was perfo rmed using [employer] ratio n reage nts and test kits. Value s obtai hetal with other assay metho ds or kits canno t be used [facility] . Femal e Estra diol Range s: Folli cular phase 12.4- 233 pg/mL Ovula tion phase 41.0- 398 pg/mL Lutea l phase 22.3- 341 pg/mL Postm enopa usal <5-13 8 pg/mL Healt hy Pregn ant Women 1st Trime ster 154-3 243 pg/mL 2nd Trime ster 1561- 27637 pg/mL 3rd Trime ster 8525- >3000 0 pg/mL Not Available [facility] (Lab) [address] [place], [address], 11/03/2024 21:54:02 10/25/1910/24/2024 PROGE STERO NE progesterone 3.10 NG/mL This assay was perfo rmed using [employer] reage nts and test kits. Value s obtai hetal with other assay metho ds or kits canno t be used [facility] . Femal e Proge stero ne Range s: Folli cular phase 0.06- 0.89 ng/mL Ovula tion phase 0.12- 12.00 ng/mL Lutea l phase 1.83- 23.90 ng/mL Postm enopa usal <0.05 -0.13 ng/mL Healt hy Pregn ant Women 1st Trime ster 11.0- 44.30 2nd Trime ster 25.40 -83.3 0 3rd Trime ster 58.70 -214. 00 Not Available [facility] (Lab) [address] [facility], [place], [address], 11/03/2024 21:54:02 10/25/1910/24/2024 PROLA CTIN prolactin, total 27.70 NG/mL 4.79-2 3.30 high This assay was perfo rmed using [employer] reage nts and test kits. Value s obtai hetal with other assay metho ds or kits canno t be used [facility] . Not Available [facility] (Lab) [address] [place], [address], 11/03/2024 21:54:03 10/25/19 25 10/24/2024 LH (LUTE NIZIN G HORMO NE) LH 8.1 mIU/m L This assay was perfo rmed using [employer] reage nts and test kits. Value s obtai hetal with other assay metho ds or kits canno t be used [facility] . Femal es Mid-F ollic ular: 2.4-1 2.6 mIU/m L Mid-C ycle: 14.0- 95.6 mIU/m L Mid-L uteal : 1.0-1 1.4 mIU/m L Postm enopa use: 7.7-5 8.5 mIU/m L Not Available [facility] (Lab) [address] [facility], [place], [address], 11/03/2024 21:54:03 10/25/1910/24/2024 FSH FSH 2.2 mIU/m L This assay was perfo rmed using [employer] reage nts and test kits. Value s obtai hetal with other assay metho ds or kits canno t be used [facility] . Femal es Folli cular : 3.5-1 2.5 mIU/m L Ovula tion: 4.7-2 1.5 mIU/m L Lutea l: 1.7-7 .7 mIU/m L Postm enopa use: 25.8- 134.8 mIU/m L Not Available [facility] (Lab) [address] [facility], [place], [address], 11/03/2024 21:54:03 10/25/19 25 10/24/2024 HUMAN SEX HORMO NE MARCUS NG GLOBU CHIN sex hormone binding globulin 62.6 nmole s/L 18.2-1 35.5 Not Available [facility] (Lab) [address] [facility], [place], [address], 11/03/2024 21:54:03 09/18/20 25 10/24/2024 HEMOG LOBIN A1C hemoglobin A1C [...] >8.0% Actio n sugge sted Not Available [facility] (Lab) [address] [facility], [place], [address], 11/03/2024 21:54:04 10/25/19 25 10/24/2024 IMAGE GUIDE [...] quentin: 10/25 0936 First Scree n: Jhonny Patel CT Speci men: Terry cintrong Pap - Image d, Cervi x STATE [...] nora and/o r histo rical findi ngs, [facility] er inves tigat ion is recom kayla d, as clini elaine nascimento nted. Not Available [facility] (Lab) [address] [facility], [place], [address], 11/03/2024 21:54:04 10/25/1910/24/2024 CT/GC AND TRICH OMONA S VAGIN EFE (RRNA ), THINP REP VIAL CT/GC and trichomonas vaginalis (rrna), thinprep SEE RESULT S BELOW negati ve CHLAM YDIA TRACH OMATI S, PCR: Negat jerel NEISS ERIA GONOR RHOEA E, PCR: Negat jerel TRICH OMONA S VAGIN EFE RIBOS OMAL RNA (RRNA ): Negat jerel Not Available [facility] (Lab) [address] [facility], [place], [address], 11/03/2024 21:54:04 10/25/1910/24/2024 TESTO STERO NE, FREE( DIALY SIS) AND TOTAL (LC/M S/MS) testosterone , total 48 NG/dL 2-45 high For addit ional infor sadaf avila e refer to http: //[facility] mitzi lopez.que stdia gnost ics.c om/fa q/ Total Testo stero neLCM SMSFA Q165 (This link is being provi ded for infor angelo smith/ educa bobbi l purpo ses only. ) This test was devel oped and its jordan tical perfo rmanc e fausto cteri stics have been deter mined by [facility] [place], [place]. It has not been clear ed or appro quentin by the U.S. Food and Drug Admin istra tion. This assay has been valid ated pursu ant to the CLIA regul ation s and is used for clini nora purpo ses. Not Available [facility] (Lab) [address] [facility], [place], [address], 11/03/2024 21:54:05 10/25/1910/24/2024 TESTO STERO NE, FREE( DIALY SIS) AND TOTAL (LC/M S/MS) testosterone , free 4.2 pg/mL 0.1-6. 4 This test was devel oped and its jordan tical perfo rmanc e fausto cteri stics have been deter mined by [facility] [employer] [facility] [employer] Jose D [place], [place]. It has not been clear ed or appro quentin by the U.S. Food and Drug Admin istra tion. This assay has been valid ated pursu ant to the CLIA regul ation s and is used for clini nora purpo ses. Perfo rming Organ izati on Infor [facility] n: Site ID: AMD Name: [facility] Jose D [facility] Addre ss: [id number] [facility] [employer] [place], [place] Direc tor: Jenifer Anguiano MD PhD Not Available [facility] (Lab) [address] [facility], [place], [address], 11/03/2024 21:54:05 10/25/19 25 10/24/2024 17-OH PROGE STERO NE 17-hydroxypr ogesterone, lc/MS/MS [...] stics have been deter mined by [facility] [employer] [facility] [employer]. It has not been clear ed or appro quentin by the FDA. This assay has been valid ated pursu ant to the CLIA regul ation s and is used for clini nora purpo ses. Perfo rming Organ izati on Infor mat n: Site ID: EZ Name: [facility]/Amanuel irwin C-S alicia cruz , Addre ss: [id number] [place] [address] Direc tor: Maria Del Carmen canela MD,Ph D,ERICK Not Available [facility] (Lab) [address], [place], [address], 11/03/2024 21:54:05 11/01/19 25 10/31/2024 US, pelvi s No observ ation record ed. [email or web address] [place] [address], [place], [address], 10/31/2024 17:27:25 11/01/19 25 10/31/2024 US, trans kaushik al No observ ation record ed. [email or web address] [place] [address], [place], [address], 10/31/2024 17:27:34 11/01/19 25 10/31/2024 US, pelvi s No observ ation record ed. jessica Javed [address] [place] [address] [address], [place], [address], 11/08/2024 10:46:41 Result Notes None recorded. Procedures Surgical History Date Name Laterality Status Provider Name and Address Organization Details Recorded Time 10/24/2024 [facility] 11/28/2024 15:15:33 Imaging Results None recorded. Procedure Notes None recorded. Medical Equipment None Reported. Allergies Allergen ID Allergen Name Allergen Category Reaction Reaction Severity Criticality Documentation Date Start Date Code Code System Note Provider Name and Address Organization Details Recorded Time 00881 Adhesive agent (substanc e) environme nt,medica tion rash Not available low 01/14/20252021 62770 0007 SNOMED Not Available josefa - External [...] Updated DateTime 11/07/2024 162.56 cm 47 kg/m2 796969.31 g 125/83 mm[Hg] Letitia Zaragoza [facility] 11/07/2024 15:18:23 Social History Question Answer Notes LastModified by Organizat ion Details LastModified Time Tobacco Smoking Status Never Smoker Tawny moyer [facility] 10/24/2024 15:30:42 Do You Have An Advance Directive? No [email or web address] Information not available 10/24/2024 Are You Blind Or Do You Have Difficulty Seeing? Yes Glasses [email or web address] Information not available 10/24/2024 In The 14 Days Before Symptom Onset, Have You Had Close Contact With A Laboratory-confir med COVID-19 While That Case Was Ill? No [email or web address] Information not available 10/24/2024 In The 14 Days Before Symptom Onset, Have You Had Close Contact With A Person Who Is Under Investigation For COVID-19 While That Person Was Ill? No [email or web address] Information not available 10/24/2024 Have You Been To An Area Known To Be High Risk For COVID-19? No Information not available 10/24/2024 Are You Deaf Or Do You Have Serious Difficulty Hearing? No [email or web address] Information not available 10/24/2024 What Type Of Diet Are You Following? REGULAR [email or web address] Information not available 10/24/2024 What Is The Highest Grade Or Level Of School You Have Completed Or The Highest Degree You Have Received? [id number] Information not available 10/24/2024 Do You Use Your Seat Belt Or Car Seat Routinely? No Information not available 10/24/2024 Are You Sexually Active? No [email or web address] Information not available 10/24/2024 Do You Have Smoke And Carbon Monoxide Detectors In Your Home? Yes [email or web address] Information not available 10/24/2024 Has Tobacco Cessation Counseling Been Provided? No [email or web address] Information not available 10/24/2024 Do You Have Difficulty Walking Or Climbing Stairs? Yes Stairs, Knee [email or web address] Information not available 10/24/2024 Sex: Unknown Functional Status Question Answer Note LastModified by Organizat ion Details LastModified Time Do you use any illicit or recreational drugs? No [email or web address] Information not available 10/24/2024 Do you or have you ever used any other forms of tobacco or nicotine? No [email or web address] Information not available 10/24/2024 Are you currently employed? Yes [email or web address] Information not available 10/24/2024 Are you able to walk independently without assistance or assistive devices? YESWOREST [email or web address] Information not available 10/24/2024 Are you able to care for yourself independently? Yes [email or web address] Information not available 10/24/2024 Do you have difficulty dressing, bathing, grooming, or toileting? No [email or web address] Information not available 10/24/2024 Mental Status Question Answer Note LastModified by Organization D etails LastModified Time Do you feel stressed (tense, restless, nervous, or anxious, or unable to sleep at night)? [id number] [place] [address] Information not available 10/24/2024 Family History Nothing [...] ICD10 Code Diagnosis IMO Codes Diagnosis Note [id number] BRUCE Del Cid [facility] [address] [address] 10/24/2024 15:05:40 10/24/2024 17:13:13 Gynecologic examination 22225899 Z01.700 [id number] WWEBC - declinedPa p - done todaySTI [...] consult advised. Questions answered. Pain in pelvis 36769947 R10.2 19762 This patient is a 34-year-ol d female [...] pelvic u/s orderedSTI testing doneUPT declined Acne 78528751 L70.9 [id number] Female hirsutism 1053058 9 L68.0 00525 labs orderedwil l f/u to review labs and u/s Time spent in visit is a total of 40 mins with at least 50% of visit consisting of counseling and review of plan of care. Venereal d isease screening [id number] Z11.3 78310 547105 Benjamin Royal MD [facility] [address] [address] 10/31/2024 15:26:11 10/31/2024 16:06:51 Dysmenorrhea 648623113 N94.6 R10.2 L68.0 10346 [id number] BRUCE Del Cid [facility] [address] [address] 11/07/2024 14:57:34 11/07/2024 16:30:42 Polycystic ovary syndrome [id number] E28.2 357381 Reviewed updated labs and pelvic u/selevate d [...] and review of plan of care. Hirsutism 182496947 L68. 0 02953 Acne 18340079 L70.9 557162379 Pain in pelvis 34205896 R10.20 25208 Health Concerns Section Related Observation LastModified by Organization Detai ls LastModified Time None Recorded Concern Status LastModified by Organization Details LastModified Time None Recorded Payers Encounter Date Sequence Insurance Name Policy Number Policy Sanchez Covered Member ID Sanchez Member ID Guarantor Name 11/07/2024 1 [facility] [id number] [facility] [id number] [facility] Notes Date Note Type Note Provider Name and Address Organization Details Recorded Time 11/07/2024 text/html 34yoHere today for results f/u Previously diagnosed with PCOSHas been experiencing bilateral lower pelvic pain on and off for the past 3+ months. Comes and goes. Worse leading up to and on her periods. Not SA x 4-5 yrs.Unwanted hair growth on face/chin/neck/lars stacne not resolving with OTC treatments BRUCE Del Cid [address], [place], [address], [place] [facility] 11/07/2024 16:26:11 OBGyn Episode No OBEpisode recorded.
--- OUTSIDE RECORDS SUMMARY | 2025-01-14 03:36 | XMS_ITS | Encounter Summary ---
Author Organization [facility] Address [address] [place] [address] Care Team Providers Care Commissary Officer Name Role Phone Gloria Sorto NP Primary Care Provider Unav Sudhir Leroy MD Primary Care Provider [phone] Asuncion Galarza [facility] Primary Care Provider + Leland Lindsay MD Unavailable [phone] Ting Bosch MD Primary Care Provider [phone] Encounter Details Date Type Department Care Team (Late st Contact Info) Description 05/16/2020 IdenIve Message [facility] [address] [place] [address] Gloria Sorto MUTUAL FUND SALES AGENT RE: Question Social History Tobacco Use Types [...] CDT Gender Identity Female 01/20/2021 8:57 PM CRIME SCENE TECHNICIAN Sexual Orientation unknown 01/20/2021 8: 57 PM CRIME SCENE TECHNICIAN COVID-19 Exposure Response Date Recorded In the [...] Rule Out 01/14/2022 01/14/2022 01/14/2022 10:36 AM CRIME SCENE TECHNICIAN COVID-19 Rule Out 02/17/2022 02/17/2022 02/17/2022 8:01 AM CRIME SCENE TECHNICIAN COVID-19 Rule Out 05/24/2022 05/24/2022 05/24/2022 5:52 PM CDT COVID-19 Rule Out 07/17/2022 07/17/2022 07/17/2022 7:02 AM CDT COVID-19 Rule Out 07/17/2022 07/17/2022 07/17/2022 1:53 PM CDT Assessment Noted Time PHQ-9 Depression Total Score: 26 020 7:27 AM CDT documented as of this encounter Care Teams Commissary Officer Relationship Specialty Start Date End Date Gloria Sorto NP PCP - General NURSE PRACTITIONER 11/25/19 11/25/20 [place] [address] [place] [address] PCP - General FAMILY PRACTICE 11/26/20 12/28/20 Asuncion Galarza FNP- [address] [place], [place] [id number] PCP - General Nurse Practitioner Family 12/29/20 02/08/21 [place] [address] [address] [address] PCP - General FAMILY PRACTICE 02/18/21 Leland Lindsay MD [address] [place] [address] Medical Oncologist HEMATOLOGY/ONCOLOGY 01/11/21 documented as of this encounter
--- OUTSIDE RECORDS SUMMARY | 2025-01-14 03:36 | XMS_ITS | Clinical Summary ---
Author Organization [facility] Address [address] [facility] [address] Care Team Providers Care Road Train Driver Name Role Phone No, Pcp EMISSION SPECIALIST Primary Care Provider Unavailabl e Social History Tobacco Use Types Packs/Day Years Used Date Smoking Tobacco: Never Assessed Comments Unknown Sex and Gender Information Value Date Recorded Sex Assigned at Not on file Legal Sex Female 8:08 AM EST Gender Identity Not on file Sexual Orientation Not on file Plan of Treatment Not on file Medical Devices Not on file Insurance Care Teams Road Train Driver Relationship Specialty Start Date End Date No, Pcp, EMISSION SPECIALIST N/A Do not use PCP - General Family Medicine 12/18/19
--- OUTSIDE RECORDS SUMMARY | 2025-01-14 03:36 | XMS_ITS | Encounter Summary ---
Author Organization [facility] Address [address] [place] [address] Care Team Providers Care Vest Busheler Name Role Phone Leland Lindsay MD Unavailable [phone] Ting Bosch MD Primary Care Provider [phone] Encounter Details Date Type Department Care Team (Late st Contact Info) Description 05/10/2021 Democracy Enginehart Message [facility] Family & Internal Medicine [facility] [id number] [place] [address] [place] [address] [facility]. [address] [place] [address] Sick Social History Tobacco Use Types Packs/Day Years [...] CDT Gender Identity Female 01/20/2021 8:57 PM MEAT GRINDER Sexual Orientation unknown 01/20/2021 8: 57 PM MEAT GRINDER documented as of this encounter Progress Notes * Odette Santo MA - 05/10/2021 4:02 PM CDT Letter placed in envelope for pt and placed up front. Patient informed. * Odette Santo MA - 05/10/2021 2:50 PM CDT Have not seen since 02/18/21. OK to write note or does she need appt? documented in this encounter Plan of Treatment Not on file documented as of this encounter Visit Diagnoses Not on filedocumented in this encounter Additional Health Concerns Infection Onset Date Last Indicated Resolved Time COVID-19 Rule Out 01/14/2022 01/14/2022 01/14/2022 10:36 AM MEAT GRINDER COVID-19 Rule Out 02/17/2022 02/17/2022 02/17/2022 8:01 AM MEAT GRINDER COVID-19 Rule Out 05/24/2022 05/24/2022 05/24/2022 5:52 PM CDT COVID-19 Rule Out 07/17/2022 07/17/2022 07/17/2022 7:02 AM CDT COVID-19 Rule Out 07/17/2022 07/17/2022 07/17/2022 1:53 PM CDT Assessment Noted Time PHQ-9 Depression Total Score: 23 021 7:20 AM CDT documented as of this encounter Care Teams Vest Busheler Relationship Specialty [place] [address] [facility] [place] [address] PCP - General FAMILY PRACTICE 02/18/21 Leland Lindsay MD [address] [place] [address] [place] [phone] Medical Oncologist HEMATOLOGY/ONCOLOGY 01/11/21 documented as of this encounter
--- OUTSIDE RECORDS SUMMARY | 2025-01-14 03:36 | XMS_ITS | Encounter Summary ---
Author Organization [facility] Address [address] [place] [address] Care Team Providers Care Loading Machine Adjuster Name Role Phone Gloria Sorto NP Primary Care Provider Unav Sudhir Leryo MD Primary Care Provider [phone] Asuncion Galarza [facility] Primary Care Provider + Leland Lindsay MD Unavailable [phone] Ting Bosch MD Primary Care Provider [phone] Encounter Details Date Type Department Care Team (Late st Contact Info) Description 05/27/2020 MyChart Message Enc [facility] Medical Group Family & Internal Medicine [address] [address] Gloria Sorto NP RE: Lab testing Social History Tobacco Use Types Packs/Day Years [...] CDT Gender Identity Female 01/20/2021 8:57 PM PROJECT CONTROLS SPECIALIST Sexual Orientation unknown 01/20/2021 8: 57 PM PROJECT CONTROLS SPECIALIST COVID-19 Exposure Response Date Recorded In the last month, have you been in contact with someone who was confirmed or suspected to have Coronavirus / COVID-19? No / Unsure 05/19/2020 7:43 AM CDT documented as of this encounter Progress Notes * Mara Esteban RN - 05/28/2020 2:27 PM CDT See below. Referral was already placed. documented in this encounter Plan of Treatment Not on file documented as of this encounter Visit Diagnoses Not on filedocumented in this encounter Additional Health Concerns Infection Onset Date Last Indicated Resolved Time COVID-19 Rule Out 01/14/2022 01/14/2022 01/14/2022 10:36 AM PROJECT CONTROLS SPECIALIST COVID-19 Rule Out 02/17/2022 02/17/2022 02/17/2022 8:01 AM PROJECT CONTROLS SPECIALIST COVID-19 Rule Out 05/24/2022 05/24/2022 05/24/2022 5:52 PM CDT COVID-19 Rule Out 07/17/2022 07/17/2022 07/17/2022 7:02 AM CDT COVID-19 Rule Out 07/17/2022 07/17/2022 07/17/2022 1:53 PM CDT Assessment Noted Time PHQ-9 Depression Total Score: 26 020 7:27 AM CDT documented as of this encounter Care Teams Loading Machine Adjuster Relationship Specialty Start Date End Date Gloria Sorto NP PCP - General NURSE PRACTITIONER 11/25/19 11/25/20 [place] [address] [place] [address] PCP - General FAMILY PRACTICE 11/26/20 12/28/20 [facility] [address] [place] [address] PCP - General Nurse Practitioner Family 12/29/20 02/08/21 [place] [address] [facility] [address] [place] [address] PCP - General FAMILY PRACTICE 02/18/21 Leland Lindsay MD [address] [place] [address] [address] [place] [address] Medical Oncologist HEMATOLOGY/ONCOLOGY 01/11/21 documented as of this encounter
--- OUTSIDE RECORDS SUMMARY | 2025-01-14 03:36 | XMS_ITS | Continuity of Care Document ---
Author Organization [facility] [place] Address [address] [place] [address] Assessment No assessment recorded. Plan of Treatment [...] spironola ctone 50 mg tablet 2024 025 [facility]/Ph[facility] #[id number], [address], [address], 11/29/2024 09:30:40 Patient TargetsNo targets recorded. Patient InstructionsNo instructions recorded. Reason for Referral None Reported. Results Created Date Observation Date Name Description Value Unit Range Abnormal Flag Note LastModifiedBy Organization Detail LastModifiedTime 11/01/1910/31/2024 US, pelnieves s No observ ation record ed. [email or web address] [place] [address], [place], [address], 10/31/2024 17:27:25 11/01/1910/31/2024 US, kelly montgomery No observ ation record ed. [email or web address] [place] [address], [place], [address], 10/31/2024 17:27:34 11/01/19 25 10/31/2024 [place], phyllis miles No observ ation record ed. [email or web address] Javed [address], [place], [address], 11/08/2024 10:46:41 Result Notes None recorded. Procedures Surgical History Date Name Laterality Status Provider Name and Address Organization Details Recorded Time 10/24/2024 Date of Last Pap Smear completed [facility] 11/28/2024 15:15:33 Imaging Results None recorded. Procedure Notes None recorded. Medical Equipment None Reported. Allergies Allergen ID Allergen Name Allergen Category Reaction Reaction Severity Criticality Documentation Date Start Date Code Code System Note Provider Name and Address Organization Details Recorded Time 76661 Adhesive agent (substanc e) environme nt,medica tion rash Not available low 01/14/20252021 10367 0007 SNOMED Not Available josefa - External [...] 2024 active Not Available Not Available Not Howardej josie escitalopra m 10 mg tablet TAKE 1 [...] Updated DateTime 11/28/2024 162.56 cm 46 kg/m2 105227.76 g 121/82 mm[Hg] Letitia Zaragoza [facility] 11/28/2024 15:15:01 Social History Question Answer Notes LastModified by Organizat ion Details LastModified Time Tobacco Smoking Status Never Smoker Tawny moyer, [facility] 10/24/2024 15:30:42 Do You Have An Advance Directive? No [email or web address] Information not available 10/24/2024 Are You Blind Or Do You Have Difficulty Seeing? Yes Glasses [email or web address] Information not available 10/24/2024 In The 14 Days Before Symptom Onset, Have You Had Close Contact With A Laboratory-confir med COVID-19 While That Case Was Ill? No [email or web address] Information not available 10/24/2024 In The 14 [...] Do You Have Serious Difficulty Hearing? No [email or web address] Information not available 10/24/2024 What Type Of Diet Are You Following? REGULAR [email or web address] Information not available 10/24/2024 What Is The Highest Grade Or Level Of School You Have Completed Or The Highest Degree You Have Received? [id number] Information not available 10/24/2024 Do You Use Your Seat Belt Or Car Seat Routinely? No Information not available 10/24/2024 Are You Sexually Active? No [email or web address] Information not available 10/24/2024 Do You Have Smoke And Carbon Monoxide Detectors In Your Home? Yes [email or web address] Information not available 10/24/2024 Has Tobacco Cessation Counseling Been Provided? No Information not available 10/24/2024 Do You Have Difficulty Walking Or Climbing Stairs? Yes Stairs, Knee [email or web address] Information not available 10/24/2024 Sex: Unknown Functional Status Question Answer Note LastModified by Organizat ion Details LastModified Time Do you use any illicit or recreational drugs? No Information not available 10/24/2024 Do you or have you ever used any other forms of tobacco or nicotine? No [email or web address] Information not available 10/24/2024 Are you currently employed? Yes Information not available 10/24/2024 Are you able to walk independently without assistance or assistive devices? YESWOREST [email or web address] Information not available 10/24/2024 Are you able to care for yourself independently? Yes Information not available 10/24/2024 Do you have difficulty dressing, bathing, grooming, or toileting? No Information not available 10/24/2024 Mental Status Question Answer Note LastModified by Organization D etails LastModified Time Do you feel stressed (tense, restless, nervous, or anxious, or unable to sleep at night)? [id number] Information not available 10/24/2024 Family History Nothing [...] ICD10 Code Diagnosis IMO Codes Diagnosis Note [id number] Benjamin Way MD [place] [address],[facility] [place] [place] [address] 10/31/2024 15:26:11 10/31/2024 16:06:51 Dysmenorrhea 802678933 N94.6 R10.2 L68.0 84058 [id number] Irma Zaldivar FLORENCIA [place] [address],[place] [address] 11/07/2024 14:57:34 11/07/2024 16:30:42 Polycystic ovary syndrome 195724957 E28.2 001761 Reviewed updated labs and pelvic u/selevate d [...] and review of plan of care. Hirsutism 120018118 L68. 0 73572 Acne 87483412 L70.9 [id number] Pain in pelvis 96502857 R10.20 11648 [id number] BRUCE Del Cid [place] [address],[facility] [place] [address] 11/28/2024 14:50:26 11/29/2024 09:41:13 Polycystic ovary syndrome 615797381 E28.2 844662 Stopped OCP d/t negative mood changes. Precaution s discussed, if suicidal thoughts 911/ED immediatel y. Continue f/u with psychiatry Alternativ e hormonal contracept ion options discussed, declined at this timewill continue spironolac tone, can increase dose at f/u appointmen t if tolerateds he is aware of the need to prevent while on spironolac tone d/t risk of defects Dysmenorrhea [id number] N 94.6 69165 declines hormonal contracept ion at this time d/t neg mood changespos sible endometrio sis based on longevity/ severity of symptoms, int in discussing surgical management options. Scheduled for consult with Dr. Way Time spent in visit is a total of 30 mins with at least 50% of visit consisting of counseling and review of plan of care. Hirsutism 198013949 L68. 0 Health Concerns Section Related Observation LastModified by Organization Detai ls LastModified Time None Recorded Concern Status LastModified by Organization Details LastModified Time None Recorded Payers Encounter Date Sequence Insurance Name Policy Number Policy Sanchez Covered Member ID Sanchez Member ID Guarantor Name 11/28/2024 1 [employer] [id number] [facility] [id number] [facility] Notes Date Note Type Note Provider Name and Address Organization Details Recorded Time 11/28/2024 text/html 34yoHere today for medication follow-up. Started [...] endometriosis BRUCE Del Cid [address], [place], [address], [facility] 11/29/2024 09:38:25 OBGyn Episode No OBEpisode recorded.
--- OUTSIDE RECORDS SUMMARY | 2025-01-14 03:36 | XMS_ITS | Encounter Summary ---
Author Organization [facility] Address [address] [place] [address] Care Team Providers Care Mill Worker Name Role Phone Gloria Sorto NP Primary Care Provider Unav Sudhir Leroy MD Primary Care Provider [phone] Asuncion Galarza [facility] Primary Care Provider + Leland Lindsay MD Unavailable [phone] Ting Bosch MD Primary Care Provider [phone] Encounter Details Date Type Department Care Team (Late st Contact Info) Description 05/18/2020 Nanomixt Message [facility] [address] [place] [address] Gloria Sorto, FLORENCIA lab work [...] CDT Gender Identity Female 01/20/2021 8:57 PM OCCUPATIONAL HEALTH AND SAFETY ADVISER Sexual Orientation unknown 01/20/2021 8: 57 PM OCCUPATIONAL HEALTH AND SAFETY ADVISER COVID-19 Exposure Response Date Recorded In the [...] Rule Out 01/14/2022 01/14/2022 01/14/2022 10:36 AM OCCUPATIONAL HEALTH AND SAFETY ADVISER COVID-19 Rule Out 02/17/2022 02/17/2022 02/17/2022 8:01 AM OCCUPATIONAL HEALTH AND SAFETY ADVISER COVID-19 Rule Out 05/24/2022 05/24/2022 05/24/2022 5:52 PM CDT COVID-19 Rule Out 07/17/2022 07/17/2022 07/17/2022 7:02 AM CDT COVID-19 Rule Out 07/17/2022 07/17/2022 07/17/2022 1:53 PM CDT Assessment Noted Time PHQ-9 Depression Total Score: 26 020 7:27 AM CDT documented as of this encounter Care Teams Mill Worker Relationship Specialty Start Date End Date Gloria Sorto NP PCP - General NURSE PRACTITIONER 11/25/19 11/25/20 [place] [address] [place] [address] PCP - General FAMILY PRACTICE 11/26/20 12/28/20 Asuncion Galarza FNP- [address] [place], [place] [id number] PCP - General Nurse Practitioner Family 12/29/20 02/08/21 [place] [address] [address] [address] PCP - General FAMILY PRACTICE 02/18/21 Leland Lindsay MD [address] [place] [address] Medical Oncologist HEMATOLOGY/ONCOLOGY 01/11/21 documented as of this encounter
--- OUTSIDE RECORDS SUMMARY | 2025-01-14 03:36 | XMS_ITS | Encounter Summary ---
Author Organization [facility] Address [address] [place] [address] Care Team Providers Care Grounds Crew Supervisor Name Role Phone Leland Lindsay MD Unavailable [phone] Ting Bosch MD Primary Care Provider [phone] Encounter Details Date Type Department Care Team (Late st Contact Info) Description 02/26/2021 Foundation Medicinet Message Enc [facility] Medical Group [facility] [address] [address] Onur Cheng MD [address] [place] [address] Appointment Social History Tobacco Use Types [...] CDT Gender Identity Female 01/20/2021 8:57 PM RADIOLOGY NURSE Sexual Orientation unknown 01/20/2021 8: 57 PM RADIOLOGY NURSE COVID-19 Exposure Response Date Recorded In the last month, have you been in contact with someone who was confirmed or suspected to have Coronavirus / COVID-19? No / Unsure 02/18/2021 7:07 AM RADIOLOGY NURSE documented as of this encounter Plan of Treatment Not on file documented as of this encounter Visit Diagnoses Not on filedocumented in this encounter Additional Health Concerns Infection Onset Date Last Indicated Resolved Time COVID-19 Rule Out 01/14/2022 01/14/2022 01/14/2022 10:36 AM RADIOLOGY NURSE COVID-19 Rule Out 02/17/2022 02/17/2022 02/17/2022 8:01 AM RADIOLOGY NURSE COVID-19 Rule Out 05/24/2022 05/24/2022 05/24/2022 5:52 PM CDT COVID-19 Rule Out 07/17/2022 07/17/2022 07/17/2022 7:02 AM CDT COVID-19 Rule Out 07/17/2022 07/17/2022 07/17/2022 1:53 PM CDT Assessment Noted Time PHQ-9 Depression Total Score: 23 08/05/ 021 7:20 AM CDT documented as of this encounter Care Teams Grounds Crew Supervisor Relationship Specialty [place] [address] [facility] [address] [place] [address] PCP - General FAMILY PRACTICE 02/18/21 Leland Lindsay MD [address] [place] [address] [place] [phone] Medical Oncologist HEMATOLOGY/ONCOLOGY 01/11/21 documented as of this encounter
--- OUTSIDE RECORDS SUMMARY | 2025-01-14 03:36 | XMS_ITS | Encounter Summary ---
Author Organization [facility] Address [address] [place] [address] Care Team Providers Care Looseleaf Binder Coverer Name Role Phone Leland Lindsay MD Unavailable [phone] Ting Bosch MD Primary Care Provider [phone] Encounter Details Date Type Department Care Team (Late st Contact Info) Description 06/06/2021 MyChart Message Enc [facility] Medical Group Family & Internal Medicine [facility] [address] [place] [address] [place] [address] [facility]. [address] [place] [address] Clonazepam Social History Tobacco Use [...] CDT Gender Identity Female 01/20/2021 8:57 PM NOTCHER Sexual Orientation unknown 01/20/2021 8: 57 PM NOTCHER documented as of this encounter Plan of Treatment Not on file documented as of this encounter Visit Diagnoses Diagnosis Severe episode of recurrent major depressive disorder, without psychotic features (CMS/HCC HHS/HCC) documented in this encounter Additional Health Concerns Infection Onset Date Last Indicated Resolved Time COVID-19 Rule Out 01/14/2022 01/14/2022 01/14/2022 10:36 AM NOTCHER COVID-19 Rule Out 02/17/2022 02/17/2022 02/17/2022 8:01 AM NOTCHER COVID-19 Rule Out 05/24/2022 05/24/2022 05/24/2022 5:52 PM CDT COVID-19 Rule Out 07/17/2022 07/17/2022 07/17/2022 7:02 AM CDT COVID-19 Rule Out 07/17/2022 07/17/2022 07/17/2022 1:53 PM CDT Assessment Noted Time PHQ-9 Depression Total Score: 23 08/05/ 021 7:20 AM CDT documented as of this encounter Care Teams Looseleaf Binder Coverer Relationship Specialty [place] [address] [facility] [address] [place] [address] PCP - General FAMILY PRACTICE 02/18/21 Leland Lindsay MD [address] [place] [address] [place] [phone] Medical Oncologist HEMATOLOGY/ONCOLOGY 01/11/21 documented as of this encounter
--- OUTSIDE RECORDS SUMMARY | 2025-01-14 03:36 | XMS_ITS | Encounter Summary ---
Author Organization [facility] Address [address] [place] [address] Care Team Providers Care Seat Cover Cutter Name Role Phone Leland Lindsay MD Unavailable Ting Bosch MD Primary Care Provider [phone] Encounter Details Date Type Department Care Team (Late st Contact Info) Description 05/13/2021 Railpodhart Message Enc [facility] Medical Group Family & Internal Medicine [facility] [address] [place] [address] [place] [address] [facility]. [address] [place] [address] Glutened Social History Tobacco Use [...] CDT Gender Identity Female 01/20/2021 8:57 PM HAND CLOTH CUTTER Sexual Orientation unknown 01/20/2021 8: 57 PM HAND CLOTH CUTTER documented as of this encounter Plan of Treatment Not on file documented as of this encounter Visit Diagnoses Not on filedocumented in this encounter Additional Health Concerns Infection Onset Date Last Indicated Resolved Time COVID-19 Rule Out 01/14/2022 01/14/2022 01/14/2022 10:36 AM HAND CLOTH CUTTER COVID-19 Rule Out 02/17/2022 02/17/2022 02/17/2022 8:01 AM HAND CLOTH CUTTER COVID-19 Rule Out 05/24/2022 05/24/2022 05/24/2022 5:52 PM CDT COVID-19 Rule Out 07/17/2022 07/17/2022 07/17/2022 7:02 AM CDT COVID-19 Rule Out 07/17/2022 07/17/2022 07/17/2022 1:53 PM CDT Assessment Noted Time PHQ-9 Depression Total Score: 23 021 7:20 AM CDT documented as of this encounter Care Teams Seat Cover Cutter Relationship Specialty [place] [address] [facility] [address] [place] [address] PCP - General FAMILY PRACTICE 02/18/21 Leland Lindsay MD [address] [place] [address] [place] [phone] Medical Oncologist HEMATOLOGY/ONCOLOGY 01/11/21 documented as of this encounter
--- OUTSIDE RECORDS SUMMARY | 2025-01-14 03:36 | XMS_ITS | Encounter Summary ---
Author Organization [facility] Address [address] [place] [address] Care Team Providers Care Manager Pet Name Role Phone Gloria Sorto NP Primary Care Provider Unav Sudhir Leroy MD Primary Care Provider [phone] Asuncion Galarza [facility] Primary Care Provider + Leland Lindsay MD Unavailable [phone] Ting Bosch MD Primary Care Provider [phone] Encounter Details Date Type Department Care Team (Late st Contact Info) Description 05/30/2020 MyChart Message Enc [facility] Medical Group Family & Internal Medicine [address] [address] Gloria Sorto NP RE: Question [...] CDT Gender Identity Female 01/20/2021 8:57 PM CONDOMINIUM PROPERTY MANAGER Sexual Orientation unknown 01/20/2021 8: 57 PM CONDOMINIUM PROPERTY MANAGER COVID-19 Exposure Response Date Recorded In the [...] Rule Out 01/14/2022 01/14/2022 01/14/2022 10:36 AM CONDOMINIUM PROPERTY MANAGER COVID-19 Rule Out 02/17/2022 02/17/2022 02/17/2022 8:01 AM CONDOMINIUM PROPERTY MANAGER COVID-19 Rule Out 05/24/2022 05/24/2022 05/24/2022 5:52 PM CDT COVID-19 Rule Out 07/17/2022 07/17/2022 07/17/2022 7:02 AM CDT COVID-19 Rule Out 07/17/2022 07/17/2022 07/17/2022 1:53 PM CDT Assessment Noted Time PHQ-9 Depression Total Score: 26 020 7:27 AM CDT documented as of this encounter Care Teams Manager Pet Relationship Specialty Start Date End Date Gloria Sorto NP PCP - General NURSE PRACTITIONER 11/25/19 11/25/20 [place] [address] [place] [address] PCP - General FAMILY PRACTICE 11/26/20 12/28/20 Asuncion Galarza, VALERIE- [address] [place] [address] PCP - General Nurse Practitioner Family 12/29/20 02/08/21 [place] [address] [address] [address] PCP - General FAMILY PRACTICE 02/18/21 Leland Lindsay MD [address] [place] [phone] Medical Oncologist HEMATOLOGY/ONCOLOGY 01/11/21 documented as of this encounter
--- OUTSIDE RECORDS SUMMARY | 2025-01-14 03:36 | XMS_ITS | Encounter Summary ---
Author Organization [facility] Address [address] [place] [address] Care Team Providers Care Retail Office Associate Name Role Phone Leland Lindsay MD Unavailable [phone] Ting Bosch MD Primary Care Provider [phone] Encounter Details Date Type Department Care Team (Late st Contact Info) Description 04/08/2021 Connectipity Message Enc [facility] Medical Group Family & Internal Medicine [address] [address] [facility] Provider Doxycycline Social History Tobacco Use Types Packs/Day Years [...] CDT Gender Identity Female 01/20/2021 8:57 PM 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 CLERK Sexual Orientation unknown 01/20/2021 8: 57 PM 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 CLERK documented as of this encounter Plan of Treatment Not on file documented as of this encounter Visit Diagnoses Not on filedocumented in this encounter Additional Health Concerns Infection Onset Date Last Indicated Resolved Time COVID-19 Rule Out 01/14/2022 01/14/2022 01/14/2022 10:36 AM 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 CLERK COVID-19 Rule Out 02/17/2022 02/17/2022 02/17/2022 8:01 AM 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 CLERK COVID-19 Rule Out 05/24/2022 05/24/2022 05/24/2022 5:52 PM CDT COVID-19 Rule Out 07/17/2022 07/17/2022 07/17/2022 7:02 AM CDT COVID-19 Rule Out 07/17/2022 07/17/2022 07/17/2022 1:53 PM CDT Assessment Noted Time PHQ-9 Depression Total Score: 23 021 7:20 AM CDT documented as of this encounter Care Teams Retail Office Associate Relationship Specialty [place] [address] [facility]. [address] [place] [address] PCP - General FAMILY PRACTICE 02/18/21 Leland Lindsay MD [address] [facility] [address] [place] [phone] Medical Oncologist HEMATOLOGY/ONCOLOGY 01/11/21 documented as of this encounter
--- OUTSIDE RECORDS SUMMARY | 2025-01-14 03:36 | XMS_ITS | Continuity of Care Document ---
Author Organization [facility] [place] Address [address] [place] [address] Assessment No assessment recorded. Plan of Treatment [...] laparosco py, diagnosti c (SURG) 2024 025 [id number] [facility], [address], [address], 12/13/2024 16:20:26 Imaging None recorded. Medication Orders None recorded. Patient TargetsNo targets recorded. Patient InstructionsNo instructions recorded. Reason for Referral None Reported. Procedures Surgical History Date Name Laterality Status Provider Name and Address Organization Details Recorded Time 10/24/2024 Date of Last Pap Smear completed Letitia Zaragoza [facility] 11/28/2024 15:15:33 Imaging Results None recorded. Procedure Notes None recorded. Medical Equipment None Reported. Allergies Allergen ID Allergen Name Allergen Category Reaction Reaction Severity Criticality Documentation Date Start Date Code Code System Note Provider Name and Address Organization Details Recorded Time 84562 Adhesive agent (substanc e) environme nt,medica tion rash Not available low 01/14/20252021 32067 0007 SNOMED Not Available josefa - External [...] active Not Available Not Available Not Avai josie escitalopra m 10 mg tablet TAKE [...] Updated DateTime 12/04/2024 162.56 cm 45.7 kg/m2 503127.57 g 131/83 mm[Hg] Letitia Zaragoza [facility] 12/04/2024 17:14:20 Social History Question Answer Notes LastModified by Organizat ion Details LastModified Time Tobacco Smoking Status Never Smoker Tawny Calix [email or web address], [facility] 10/24/2024 15:30:42 Do You Have An Advance Directive? No Information not available 10/24/2024 Are You Blind Or Do You Have Difficulty Seeing? Yes Glasses [email or web address] Information not available 10/24/2024 In The 14 Days Before Symptom Onset, Have You Had Close Contact With A Laboratory-confir med COVID-19 While That Case Was Ill? No [email or web address] Information not available 10/24/2024 In The 14 Days Before Symptom Onset, Have You Had Close Contact With A Person Who Is Under Investigation For COVID-19 While That Person Was Ill? No [email or web address] Information not available 10/24/2024 Have You Been To An Area Known To Be High Risk For COVID-19? No [email or web address] Information not available 10/24/2024 Are You Deaf Or Do You Have Serious Difficulty Hearing? No [email or web address] Information not available 10/24/2024 What Type Of Diet Are You Following? REGULAR [email or web address] Information not available 10/24/2024 What Is The Highest Grade Or Level Of School You Have Completed Or The Highest Degree You Have Received? [id number] [email or web address] Information not available 10/24/2024 Do You Use Your Seat Belt Or Car Seat Routinely? No [email or web address] Information not available 10/24/2024 Are You Sexually Active? No [email or web address] Information not available 10/24/2024 Do You Have Smoke And Carbon Monoxide Detectors In Your Home? Yes [email or web address] Information not available 10/24/2024 Has Tobacco Cessation Counseling Been Provided? No [email or web address] Information not available 10/24/2024 Do You Have Difficulty Walking Or Climbing Stairs? Yes Stairs, Knee [email or web address] Information not available 10/24/2024 Sex: Unknown Functional Status Question Answer Note LastModified by Organizat ion Details LastModified Time Do you use any illicit or recreational drugs? No [email or web address] Information not available 10/24/2024 Do you or have you ever used any other forms of tobacco or nicotine? No [email or web address] Information not available 10/24/2024 Are you currently employed? Yes [email or web address] Information not available 10/24/2024 Are you able to walk independently without assistance or assistive devices? YESWOREST [email or web address] Information not available 10/24/2024 Are you able to care for yourself independently? Yes [email or web address] Information not available 10/24/2024 Do you have difficulty dressing, bathing, grooming, or toileting? No [email or web address] Information not available 10/24/2024 Mental Status Question Answer Note LastModified by Organization D etails LastModified Time Do you feel stressed (tense, restless, nervous, or anxious, or unable to sleep at night)? [id number] [place] [address] Information not available 10/24/2024 Family History Nothing [...] ICD10 Code Diagnosis IMO Codes Diagnosis Note [id number] BRUCE Del Cid [place] [address] [address] 11/07/2024 14:57:34 11/07/2024 16:30:42 Polycystic ovary syndrome [id number] E28.2 080796 Reviewed updated labs and pelvic u/selevate d [...] and review of plan of care. Hirsutism 043497270 L68. 0 75064 Acne 86041401 L70.9 [id number] Pain in pelvis 62348569 R10.20 [id number] BRUCE Del Cid [place] [address] [address] 11/28/2024 14:50:26 11/29/2024 09:41:13 Polycystic ovary syndrome [id number] E28.2 [id number] Stopped OCP d/t negative mood changes. Precaution s discussed, if suicidal thoughts 911/ED immediatel y. Continue f/u with psychiatry Alternativ e hormonal contracept ion options discussed, declined at this timewill continue spironolac tone, can increase dose at f/u appointmen t if tolerateds he is aware of the need to prevent while on spironolac tone d/t risk of defects Dysmenorrhea [id number] N 94.6 64412 declines hormonal contracept ion at this time d/t neg mood changespos sible endometrio sis based on longevity/ severity of symptoms, int in discussing surgical management options. Scheduled for consult with Dr. Way Time spent in visit is a total of 30 mins with at least 50% of visit consisting of counseling and review of plan of care. Hirsutism [id number] L68. [id number] MD [place] [address] [address] 12/04/2024 16:41:10 12/05/2024 10:09:23 Pain in pelvis 95302894 R10.20 [id number] this patient is a 34-year-ol d female [...] Member ID Sanchez Member ID Guarantor Name 12/04/2024 1 [facility] [id number] [facility] Shital [id number] Sofie Shital Notes Date Note Type Note Provider Name and Address Organization Details Recorded Time 12/04/2024 text/html this patient is a 34-year-old female [...] is risk of hemorrhage and infection. Benjamin Way MD [address], [place], [address], [facility] 12/04/2024 18:48:14 OBGyn Episode No OBEpisode recorded.
--- NOTE | 2025-01-14 08:57 | WPDANESEPPF ---
Anes - Initial Pre Proc Eval Procedure: Operation Date: 01/14/25 10:30 Proposed Procedures p Robotic Assisted Diagnostic Laparoscopy - Benjamin Royal MD Date/Time: 01/14/25 08:57 Surgeon: Benjamin Royal MD Pre Op Diagnosis: Pain in Pelvis Patient Data Age: 34 Gender: F Height: 1.63 m Weight: 118 kg Allergies Allergy/AdvReac Type Severity Reaction Status Date / Time adhesive tape AdvReac Severe Rash Verified 01/08/25 15:33 Home Medications ?Medication ?Instructions ?Recorded ?Confirmed ?Type buspirone 5 mg tablet 10 mg PO BID 01/29/24 01/08/25 History oxcarbazepine 300 mg tablet 300 mg PO BID 01/29/24 01/08/25 History escitalopram oxalate 10 mg tablet 20 mg PO DAILY 07/22/24 01/08/25 History multivitamin 1 tablet PO DAILY 01/08/25 01/08/25 History spironolactone 50 mg tablet 50 mg PO DAILY 01/08/25 01/08/25 History Patient hx anesthesia problems: none Family hx anesthesia problems: none Results Review: All pre-operative results and documents have been reviewed as part of the pre-operative evaluation. FOR[facility]LY [facility], [facility] Past Medical History Medical History (Updated 01/14/25 @ 08:42 by Dwight Beltran DO) PCOS (polycystic ovarian syndrome) GERD (gastroesophageal reflux disease) Anxiety Social History Social History Smoking status: Never smoker Alcohol intake: never Substance use: current Substance use type: marijuana Other substance usage details: gummies, smoke marijuana- daily Last use: 01/08/2025 Living arrangements: with family Spiritual care concerns: No Anes - Eval Final PreProcedure Day of Procedure 01/14/25 08:57 Patient weight: morbidly obese Heart: regular rate and rhythm Lungs: clear to auscultation Airway: Mallampati scale class II Neurological: alert and oriented Last oral intake: >/= 8 hours ASA classification: III Emergent: no Anesthetic plan: proceed Anesthesia type and monitoring: general ETT and standard monitoring Results Review: All pre-operative results and documents have been reviewed as part of the pre-operative evaluation. Informed Consent: The patient's anesthetic plan and its attendant risks and benefits were discussed with the patient/family/POA. Questions were solicited and answers provided to the satisfaction of the patient/family/POA.
--- NOTE | 2025-01-14 09:17 | WPDHPUPDATE1 ---
History and Physical Update Update Date/Time: 01/14/25 09:17 History and Physical has been reviewed, including an updated exam of the patient. There are NO changes in the patient's condition. Risks, benefits, and alternatives have been discussed and questions answered. Patient agrees to proceed with procedure.
[2025-01-14] MEDS: KETOROLAC 15 MG/ML VIAL (*BKC) IV PUSH (09:20)
[2025-01-14] MEDS: ACETAMINOPHEN 500 MG TABLET 1000 MG PO (09:20)
[2025-01-14] MEDS: LACTATED RINGERS 1,000 ML 30 ML IV CONT ×2 (09:20→12:36)
[2025-01-14] MEDS: SCOPOLAMINE 1 MG PATCH 1 PATCH TRANSDERM (09:20)
--- NOTE | 2025-01-14 09:21 | PM.IMHP2 ---
H&P: HPI History of Present Illness Date/Time: 01/14/25 09:21 Chief Complaint: Pelvic pain Narrative: This patient is a 34-year-old female with pelvic pain. We agreed performed diagnostic laparoscopy. She understands risks, benefits, and alternatives. She has completed informed consent process is ready to proceed. The patient understands the details of the procedure. The procedure has been explained in detail. She understands the risks. She understands that injuries may occur that result in hospitalization, more surgery, and severe illness. She understands risk of hemorrhage and infection. She denies any chest pain or shortness of breath. She denies any nausea, vomiting, fever, chills. Review of Systems Review of Systems: All systems reviewed & are unremarkable except as noted in HPI and below Constitutional: Constitutional: Denies chills, Denies fatigue, Denies fever(s) and Denies weakness Eyes: Eyes: Denies blurry vision, Denies change in vision, Denies loss of peripheral vision, Denies loss of vision, Denies other visual disturbances and Denies eye pain ENT: Denies vertigo, Denies dizziness, Denies hearing loss, Denies mouth pain, Denies nasal obstruction, Denies neck mass and Denies neck pain Cardiovascular: Cardiovascular: Denies chest pain, Denies diaphoresis, Denies syncope, Denies leg edema and Denies dyspnea Respiratory: Respiratory: Denies chest congestion, Denies cough, Denies hemoptysis, Denies dyspnea and Denies wheezing Gastrointestinal: Gastrointestinal: Denies abdominal pain, Denies constipation, Denies diarrhea, Denies nausea and Denies vomiting Genitourinary: Genitourinary: Denies hematuria, Denies change in libido, Denies nocturia, Denies genital lesions, Denies flank pain and Denies urinary urgency Musculoskeletal: Musculoskeletal: Denies abnormal gait, Denies back pain, Denies myalgias, Denies arthralgias, Denies joint swelling, Denies muscle weakness and Denies neck pain Integumentary/Breasts: Skin/Breast: Denies swelling, Denies breast pain, Denies breast mass, Denies dry skin, Denies nipple discharge, Denies unusual bruising and Denies jaundice Neurologic: Denies Neuro-related abnormal movements, Denies Abnormal speech present, Denies abnormal gait, Denies behavioral changes, Denies confusion, Denies vertigo, Denies dizziness, Denies syncope, Denies loss of vision, Denies memory loss, Denies convulsions and Denies weakness Psychiatric: Psychiatric: Denies abnormal sleep pattern, Denies behavioral changes, Denies change in libido, Denies confusion, Denies depression, Denies anhedonia and Denies memory loss Endocrine: Endocrine: Reports no additional endocrine complaints, Denies change in libido and Denies fatigue Hematologic/Lymphatic: Hematologic/Lymphatic: Reports no additional hematologic/lymphatic complaints Allergic/Immunologic: Allergic/Immunologic: Reports no additional allergic/immunologic complaints and Denies wheezing PMF Past Medical History Medical History (Updated 01/14/25 @ 09:25 by Benjamin Royal MD) Pelvic pain PCOS (polycystic ovarian syndrome) GERD (gastroesophageal reflux disease) Anxiety Social History Social History Smoking status: Never smoker Alcohol intake: never Substance use: current Substance use type: marijuana Other substance usage details: gummies, smoke marijuana- daily Last use: 01/08/2025 Living arrangements: with family Spiritual care concerns: No Meds Home Medications and Allergies Home Medications ?Medication ?Instructions ?Recorded ?Confirmed ?Type buspirone 5 mg tablet 10 mg PO BID 01/29/24 01/08/25 History oxcarbazepine 300 mg tablet 300 mg PO BID 01/29/24 01/08/25 History escitalopram oxalate 10 mg tablet 20 mg PO DAILY 07/22/24 01/08/25 History multivitamin 1 tablet PO DAILY 01/08/25 01/08/25 History spironolactone 50 mg tablet 50 mg PO DAILY 01/08/25 01/08/25 History Allergies Allergy/AdvReac Type Severity Reaction Status Date / Time adhesive tape AdvReac Severe Rash Verified 01/08/25 15:33 Exam Const: General: cooperative, healthy appearing, comfortable and no acute distress Orientation/consciousness: oriented to person, oriented to place and oriented to time HENMT: Head: normal to inspection Ears: external ears normal Face/Nose/Sinus: Normal external nose present and normal facial exam Face and sinus: normal facial exam Eyes: General: appearance normal, both eyes and all related structures Neck: Neck: normal visual inspection, trachea midline and supple Resp: Auscultation: clear to auscultation bilaterally, no crackles, no rales, no rhonchi and no wheezes Cardio: Rate: regular rate Rhythm: regular rhythm Heart sounds: no click, no murmurs and no rubs GI: GI Palp: No abdominal tenderness, No Soft to palpation, No Tenderness to palpation present (GI) and No Palpable mass present Auscultation: normal bowel sounds Skin: General skin exam: normal color and no rashes or lesions noted Neuro: General: oriented to person, oriented to place and oriented to time Extrem: General: normal to inspection, no joint enlargement, no clubbing, cyanosis or edema, no pedal edema and no calf tenderness Psych: Appearance: grossly normal Mental Status: mental status grossly normal Speech and movement: Normal speech and movement present Assessment and Plan Assessment and plan (1) Pelvic pain: Code(s): R10.20 - Pelvic and perineal pain unspecified side Status: Acute Plan This patient is a 34-year-old female with pelvic pain. We agreed performed diagnostic laparoscopy. She understands risks, benefits, and alternatives. She has completed informed consent process is ready to proceed
[2025-01-14 10:05] LABS: BEDSIDEPREGUCG Negative (Negative)
--- NOTE | 2025-01-14 11:05 | S_PTH ---
PATIENT: Sofie Isaacs LOC: [facility] U#:[id number] AGE/SX: 34/F ROOM: RE01/14/[address]: Benjamin Royal MD : 1990 BED: DIS: 01/14/2025 SPEC #: [id number] RECD: 01/14/25 13:16 STATUS: OLIVA RESal #: [id number] DANY: 01/14/25 11:[address]: Benjamin Royal DEPT: [facility] Surgical RECD BY: Skylar Chavez MLT, ([facility]) ENTERED: 01/14/25 13:17 SP TYPE: Surgical OTHR DR: [employer] COUNTERPERSON PHYSICIAN Tissues: A - [place] Biopsy B - Peritoneum C - Mass D - Peritoneum E - Peritoneum F - Mass G - Soft Tissue Procedures: Hematoxylin and Eosin Stain Gross and Microscopic Level 3 Gross and Microscopic Level 4
--- NOTE | 2025-01-14 12:23 | W.PM.PROC2 ---
Procedure Note - Detailed Date of Procedure 01/14/25 Pre-op Diagnosis Pain in Pelvis Post-op Diagnosis Same ( endometriosis) Procedure Performed radical resection of endometriosis Surgeon Benjamin Royal MD Anesthesia General Indications pelvic pain Findings Next multiple large fibrous endometrial implants, 1 over the bladder, 1 in the left adnexa, 1 at the infundibulopelvic ligament on the left. By 1 over the rectum. Widespread vesicular implants endometriosis that were small and clear over most surfaces in the deep pelvis. Description of Procedure The patient was taken to the operating room. She was prepped and draped in the dorsal lithotomy position after induction general anesthesia. A 8 mm skin incision was made in the left upper quadrant the abdomen. a 5 mm Visiport trocar was inserted into abdominal cavity and pneumoperitoneum was achieved. A 8 mm supraumbilical incision was made and a 8 mm trocar was inserted into the intrauterine cavity under direct visualization of the scope. an 8 mm incision was made in the right upper quadrant of the abdomen and an 8 mm robotic trocar was placed the inter uterine cavity under direct visualization the scope. An 11 mm trocar was inserted in the right upper quadrant of the abdomen rectal is a cystoscope after an incision was made there as well. The robot was docked. Electronic Orientation of the robot was performed. The ovaries were suspended. This was done using Mac-Patricia Endoclose needle and 0 Vicryl. The bilateral lower quadrants were pierced with the Mac-Patricia needle while being transilluminated. They were carrying an 0 Vicryl suture which was passed through the ovary bilaterally brought back out through the same incision/puncture site. They were held in place on the skin surface with a hemostat. A JOHNY manipulator was placed in the intrauterine cavity using speculum and tenaculum. It was anteflexed. This revealed the entire posterior cul-de-sac clearly. The posterior cul-de-sac peritoneum was removed completely With the exception of the the peritoneum over the rectum over the rectum and implant was resected and other areas were cauterized.. From the infundibulopelvic ligament and suspensory ligament ovary laterally to the rectum medially the peritoneum was caudal cephalad dimension was from the pelvic brim down to the uterine arteries Then cervix. This was done with sharp and blunt dissection and cautery. The ureters were dissected out and isolated. Areas in the deepest posterior cul-de-sac were cauterized. There was some very mild endometriotic lesions in this area. All of the peritoneum over the bladder was removed sharp and blunt dissection and cautery. The pelvis was irrigated. Copious amounts of irrigation were used. Interceed was placed over the dissected areas bilaterally. Two pieces were used. The robot was undocked. The pneumoperitoneum was reduced. The trocars were removed. Skin was closed with subcuticular 4 micro. The patient's incisions were covered with Dermabond. She was taken recovery room in stable condition. Sponge lap and needle counts were correct x2. Estimated Blood Loss -50.0 Complications No immediate complications Condition Stable Disposition Same day
[2025-01-14] MEDS: fentaNYL CITRATE INJ (*CRX) 100 MCG/2 ML VIAL 25 MCG IV PUSH ×2 (13:12→13:16)
[2025-01-14] MEDS: oxyCODONE HCL (*CRX) 5 MG TAB IR PO (13:54)
== END 2025-01-14 15:00 | disposition home or self-care (01) ==
PROVIDERS: Visit Provider Obstetrics & Gynecology
PROC: 8E0W4CZ Robotic Assisted Procedure of Trunk Region, Percutaneous Endoscopic Approach (ICD-10-PCS; CPT 49320; principal; 2025-01-14 10:30)
DX: N80.329 Endometriosis of the posterior cul-de-sac, unspecified depth (principal); N80.399 Endometriosis of the pelvic peritoneum, other specified sites, unspecified depth; N80.202 Endometriosis of left fallopian tube, unspecified depth; N80.A0 Endometriosis of bladder, unspecified depth; N94.89 Other specified conditions associated with female genital organs and menstrual cycle; E28.2 Polycystic ovarian syndrome; K21.9 Gastro-esophageal reflux disease without esophagitis; F41.9 Anxiety disorder, unspecified; F12.90 Cannabis use, unspecified, uncomplicated; E66.01 Morbid (severe) obesity due to excess calories; Z68.41 Body mass index [BMI] 40.0-44.9, adult
CPT/HCPCS: 58662; 88304; 88305; A9270; J0461; J1100; J1171; J1200; J1596; J1885; J2003; J2250; J2405; J2704; J3010; J7030; J7120